=== PATIENT | male | born 1955 | race Caucasian/White ===

== ENCOUNTER 2019-04-22 09:59 | Inpatient (IN) ==
[2019-04-21 09:46] LABS: Basophils # (auto) 0.03 K/uL (0-0.2); Basophils % (auto) 0.4 %; Eosinophils # (auto) 0.08 K/uL (0-0.5); Hematocrit (blood only) 31.6 % (42-52); Immature Granulocytes # (auto) 0.02 K/uL (0.00-0.02); Immature Granulocytes % (auto) 0.3 %; Lymphocytes # (auto) 0.76 K/uL (1.2-3.4); Lymphocytes % (auto) 9.7 %; Mean Corpuscular Hemoglobin 26.2 pg (25-34); Mean Corpuscular Hgb Conc 31.6 g/dL (32-36); Mean Corpuscular Volume 82.7 fL (80-100); Mean Platelet Volume 9.4 fL (7.4-10.4); Monocytes # (auto) 0.66 K/uL (0.11-0.59); Monocytes % (auto) 8.4 %; Neutrophils # (auto) 6.31 K/uL (1.4-6.5); Neutrophils % (auto) 80.2 %; Platelet Count 226 K/uL (130-400); RDW Coefficient of Variation 15.7 % (11.5-14.5); RDW Standard Deviation 47.3 fL (36.4-46.3); Red Blood Count 3.82 M/uL (4.7-6.1); White Blood Count 7.86 K/uL (4.8-10.8)
--- NOTE | 2019-04-21 13:52 | Anesthesiology Consultation ---
Date of Service April 21, 2019 Assessment & Plan (1) Encounter for pre-operative examination: Chart Review Chart Review: Acceptable Risk for Surgery and Patient NOT seen in Pre Admission Testing Consults Requested none type and screen ordered. History Surgery Operation Date: 04/22/19 11:40 Proposed Procedures p Left Hand Assisted Laparoscopic Nephrectomy - Atif Arora MD Height/Weight Height: 5 ft 11 in Weight: 71.214 kg Allergies Allergy/AdvReac Type Severity Reaction Status Date / Time No Known Allergies Allergy Verified 04/21/19 08:09 Medications Home Medications Medication Instructions Recorded Confirmed Last Taken amlodipine 5 mg tablet 5 mg PO QAM 04/21/19 04/21/19 Unknown hydrochlorothiazide 12.5 mg capsule 12.5 mg PO QAM 04/21/19 04/21/19 Unknown metoprolol tartrate 50 mg tablet 50 mg PO BID 04/21/19 04/21/19 Unknown polysaccharide iron complex 150 mg PO QAM 04/21/19 04/21/19 Unknown [Ferrex 150] tamsulosin 0.4 mg capsule 0.4 mg PO QPM 04/21/19 04/21/19 Unknown Past Medical History Medical History BPH (benign prostatic hyperplasia) Cancer of kidney PLANNING SURGERY Hypertension Past Surgical History Surgical History Hx of right inguinal hernia repair Social History Smoking Status: Never smoker Do You Dip or Chew Tobacco: No Hx Alcohol Use: No Hx Substance Use: No substance use type: does not use Testing Laboratory Results 04/21/19 09:04 Blood Type AB Positive 04/21/19 09:04 Antibody Screen NEGATIVE 04/21/19 09:04 BMP 04/09/2019: Na 139, K 3.9, Cl 104, Bicarb 28, BUN 14.3, creat 1.05. Electrocardiogram Date: 04/21/19 Findings: + NSR @ (65) Normal ECG.
[~2019-04-22 09:59] MED LIST: CEFAZOLIN 2000MG 2,000 MG/15 ML SYR IV SCH; HEPARIN SOD 5,000 UNIT/0.5 ML VIAL SQ SCH; LR 15ML/HR IV SCH; SODIUM CHLORIDE 0.9% 250 ML IV PRN
[2019-04-22] MEDS ORDERED: MIDAZOLAM HCL 1 MG/ML 2ML VIAL ONE (10:02)
[2019-04-22] MEDS ORDERED: fentaNYL citrate 100 MCG/2 ML VIAL ONE ×2 (10:03→13:34)
--- NOTE | 2019-04-22 12:03 | History & Physical Bridge Note ---
Date of Service April 22, 2019 History & Physical Bridge Note I have examined the patient, reviewed the History & Physical and in the interval since the performance of the History & Physical I have noted the following changes of clinical significance: no changes noted
[2019-04-22] MEDS ORDERED: ALBUMIN HUMAN 5% 12.5 GM/250 ML VIAL IV ONE (12:22)
[2019-04-22] MEDS ORDERED: ACETAMINOPHEN 1000 MG/100 ML IV IV ONE (12:22)
[2019-04-22] MEDS ORDERED: GELATIN SPONGE SZ 100 ONE (12:34)
[2019-04-22] MEDS ORDERED: ePHEDrine sulfate 50 MG/ML AMP IV PRN (12:41)
[2019-04-22] MEDS ORDERED: ONDANSETRON INJ 2 MG/ML 2 ML VIAL IV PRN ×2 (12:41→17:11)
[2019-04-22] MEDS ORDERED: ATROPINE SULFATE 0.1 MG/ML 10ML SYR IV PRN (12:41)
[2019-04-22] MEDS ORDERED: BUPIVACAINE 0.5 % 5 MG/1 ML MPF 30ML VIAL ONE (12:58)
[2019-04-22] MEDS ORDERED: HYDROmorphone INJ 2 MG/ML SYR/VIAL ONE (13:22)
[2019-04-22] MEDS ORDERED: KETAMINE HCL INJ 50 MG/ML 10 ML VIAL ONE (13:35)
[2019-04-22] MEDS ORDERED: LIDOCAINE HCL 2% 2 ML VIAL/AMP(20MG/ML) INFIL ONE (13:41)
[2019-04-22] MEDS ORDERED: GLYCOPYRROLATE 0.2 MG/ML VIAL ONE ×2 (13:41→15:41)
[2019-04-22] MEDS ORDERED: PROPOFOL IV EMULSION 10 MG/ML 20 ML VIAL IV ONE (13:41)
[2019-04-22] MEDS ORDERED: ROCURONIUM BROMIDE 10 MG/ML 5 ML VIAL ONE ×2 (13:41→15:41)
[2019-04-22] MEDS ORDERED: NEOSTIGMINE METHYLSULFATE 5 MG/5 ML SYR ONE ×2 (13:41→15:41)
[2019-04-22] MEDS ORDERED: ONDANSETRON INJ 2 MG/ML 2 ML VIAL ONE (13:41)
[2019-04-22] MEDS ORDERED: DEXAMETHASONE SOD INJ 4 MG/ML VIAL ONE (13:41)
[2019-04-22] MEDS ORDERED: FLOSEAL HEMOSTATIC MATRIX 10ML TOP ONE (14:46)
[2019-04-22] MEDS: fentaNYL citrate 100 MCG/2 ML VIAL IV PRN ×2 (15:38→16:00)
--- NOTE | 2019-04-22 15:39 | Operative Report ---
Post Operative Report Pre & Post Diagnosis Operation Date: 04/22/19 11:40 Pre-Op Diagnosis: Left Renal Mass Post-Op Diagnosis: Left Renal Mass Procedure Operation Date: 04/22/19 11:40 Actual Procedures p Left Radical Nephrectomy(Left) - Atif Arora MD Surgeon Sergio Arora MD Home Insurance Agent Champ Morales MD; ZAIDA Collier Estimated Blood Loss 500 Findings Consistent with Post-Op Diagnosis Specimens left kidney Description of Procedure Patient was identified in the preoperative holding area, appropriate informed consents reviewed and completed and he was transported to the operating suite. Upon arrival he received appropriate preoperative antibiotics in the form of Ancef. Adequate general anesthesia was achieved and he was placed in supine position with the bed slightly flexed. Following sterile prep and drape a midline incision was made from the subxiphoid region down to approximately 4 cm below the umbilicus. We dissected down to the linea alba and divided it exposing underlying peritoneum. After making a sharp incision into the peritoneum, finger sweep was performed which led to easy palpation of the extremely large left renal mass, but no other adhesive disease. I will continue to open the peritoneum for the full length of the incision. At that time the tumor was immediately visible as it had shifted all other abdominal contents to the right hemiabdomen. The stomach was protruding from the upper portion of the incision and the colon was visible progressing from the hepatic flexure towards the tumor, however the area of the splenic flexure and the lateral aspect of the descending colon were not visible as they were behind the tumor. Working from the superior margin we traced the transverse colon to the splenic flexure and mobilized the splenic flexure mobilized the white line of Toldt to medialize the colon. Of note, the mesentery was extremely attenuated and thinned over the large mass. We attempted to gently dissect this off of the underlying mass however it was a very adhesive in certain locations. There were several small mesenteric rents made, but no large openings. After we mobilized the colon medially, we were able to visualize the true anterior surface of the tumor. Perform a dissecting the medial aspect, we dissected the lateral and inferior aspect of the kidney with a combination of blunt dissection and LigaSure. As we gradually moved to the medial aspect of the kidney, we identified the ureter, gonadal vessel and the distal aspect of Gerota's fascia. Of note, all of these were found essentially in the deep pelvis as the mass had pushed everything out of its normal orientation. We transected the lower cone of Gerota's utilizing a stapler to help facilitate further mobility of the mass as we dissected towards the hilum. Carefully working of the medial aspect of the kidney utilizing a right angle and Bovie electrocautery, we identified the junction of the gonadal vein and the renal vein. This was shifted across the midline we could palpate the aorta immediately behind the vein. Just superior/cephalad to the vein we encountered a single renal artery which was easily palpable. After creating a window superior to the vessels and skeletonizing all areas below the vessels, we passed a stapling device and control the artery and vein and a single staple load. A second staple load was passed along the medial cephalad portion of the kidney and the adrenal was kept with the kidney itself. After confirming good hemostasis from the hilar structures we turned our attention back to the posterior and lateral aspects of the kidney. These were dissected utilizing LigaSure device and blunt dissection. The superior aspect of the kidney were transected again utilizing LigaSure and a single staple load. At this time the entire kidney was mobilized. There was delivered through the incision and passed off the table. There was one small bleeding vessel from the posterior walla parasitic vessel, this was controlled with suture ligature. There is an incredible amount of space after removing this 20+ centimeter mass, we carefully inspected the colon to ensure viability. We then placed FloSeal coagulant against the renal fossa. We confirmed excellent hemostasis and then draped the colon back in the left lateral aspect of the abdome and omentum was draped over her entire surgical field. Closure of the fascia was conducted with a looped #1 PDS beginning at the xiphoid region and tying at the distal aspect of the incision. 3-0 Vicryl was used to reapproximate William's fascia and buried the stitch. Butler were used to close the skin. Incision was infiltrated with half percent Marcaine before closure. He was extubated and taken to the PACU in stable condition. Of note, he received 2 units of blood throughout the casewe estimated blood loss to be 500 cc however there is certainly significant amount of blood within the mass. There were no complications throughout the case. Dr. Champ Moralse assisted from incision to closure. Kisha Ruelas served as a second assist throughout the case. I attest to the content of the Intraoperative Record and any orders documented therein. Any exceptions are noted below.
[2019-04-22 15:56] LABS: Basophils # (auto) 0.02 K/uL (0-0.2); Basophils % (auto) 0.2 %; Eosinophils # (auto) 0.02 K/uL (0-0.5); Eosinophils % (auto) 0.2 %; Hematocrit (blood only) 29.7 % (42-52); Hemoglobin 9.7 g/dL (14.0-18.0); Immature Granulocytes # (auto) 0.02 K/uL (0.00-0.02); Immature Granulocytes % (auto) 0.2 %; Lymphocytes # (auto) 0.62 K/uL (1.2-3.4); Lymphocytes % (auto) 5.9 %; Mean Corpuscular Volume 82.7 fL (80-100); Mean Platelet Volume 9.1 fL (7.4-10.4); Monocytes # (auto) 0.29 K/uL (0.11-0.59); Monocytes % (auto) 2.7 %; Neutrophils % (auto) 90.8 %; Platelet Count 187 K/uL (130-400); RDW Coefficient of Variation 15.3 % (11.5-14.5); RDW Standard Deviation 46.5 fL (36.4-46.3); Red Blood Count 3.59 M/uL (4.7-6.1); White Blood Count 10.57 K/uL (4.8-10.8)
[2019-04-22 16:07] LABS: Mean Corpuscular Hgb Conc 32.7 g/dL (32-36)
[2019-04-22 16:12] LABS: BUN Creatinine Ratio 16.1 (10-20); Calcium 8.2 mg/dl (8.5-10.1); Creatinine Clr Calc Pharmacy 69.5 ml/min; Est GFR (African American) 84.5; Est GFR (Non-African American) 72.9; Potassium 3.8 mmol/L (3.5-5.1)
[2019-04-22] MEDS: MoRPHine SULFATE 10 MG/ML CARP/VIAL IV PRN ×3 (16:17→16:29)
[2019-04-22] MEDS: HYDROmorphone HCL 0.5MG/ML 50 ML CASSETTE IV PRN ×4 (16:20→22:52)
--- NOTE | 2019-04-22 16:41 | Anesthesiology Progress Note ---
Date of Service April 22, 2019 Anesthesia Post Procedure Vital Signs Vital Signs: Temp Pulse Pulse Resp BP BP Pulse Ox 04/22/19 16:30 77 13 142/66 H 98 04/22/19 16:20 81 13 151/73 H 98 04/22/19 16:10 77 12 155/76 H 98 04/22/19 16:00 81 13 162/75 H 99 04/22/19 15:50 78 12 162/79 H 98 04/22/19 15:40 79 12 165/79 H 100 04/22/19 15:30 82 14 162/82 H 100 04/22/19 15:21 36.6 C 85 19 140/67 99 04/22/19 10:34 36.6 C 77 20 159/90 H 99 Pain Intensity Abdomen: Pain Intensity: 6 Transfer of Care Handoff Completed per policy Notes Mental Status: alert / awake / arousable and participated in evaluation Patient Amnestic to Procedure: Yes Nausea / Vomiting: adequately controlled Pain: adequately controlled Airway Patency, RR, SpO2: stable & adequate BP & HR: stable & adequate Hydration State: stable & adequate Anesthetic Complications: no major complications apparent and Pt Satisfied with anesthetic care
[2019-04-22] MEDS ORDERED: ACETAMINOPHEN 325 MG TAB PO PRN (17:11)
[2019-04-22] MEDS ORDERED: NALOXONE HCL 0.4 MG/1 ML VIAL/CARP IV PRN (17:11)
[2019-04-22] MEDS ORDERED: HYDROmorphone HCL 0.5MG/ML 50 ML CASSETTE IV PRN (17:11)
[2019-04-22] MEDS ORDERED: HYDROCODONE/ACETAMOPHEN 5/325MG TAB PO PRN ×2 (17:11)
[2019-04-22] MEDS ORDERED: SODIUM CHLORIDE 0.9% 1000ML 1,000 ML IV SCH (17:11)
[2019-04-22] MEDS ORDERED: Nursing to Pharmacy Communication ONE (20:17)
[2019-04-22] MEDS: TAMSULOSIN HCL 0.4 MG CAP PO SCH (20:49)
[2019-04-22] MEDS: CEFAZOLIN 2000MG 2,000 MG/15 ML SYR IV SCH (20:53)
[2019-04-23] MEDS: CEFAZOLIN 2000MG 2,000 MG/15 ML SYR IV SCH (05:27)
[2019-04-23 07:33] LABS: Basophils # (auto) 0.01 K/uL (0-0.2); Basophils % (auto) 0.1 %; Eosinophils # (auto) 0.01 K/uL (0-0.5); Eosinophils % (auto) 0.1 %; Hematocrit (blood only) 26.4 % (42-52); Hemoglobin 8.5 g/dL (14.0-18.0); Immature Granulocytes # (auto) 0.01 K/uL (0.00-0.02); Immature Granulocytes % (auto) 0.1 %; Lymphocytes % (auto) 7.9 %; Mean Corpuscular Hemoglobin 26.6 pg (25-34); Mean Corpuscular Hgb Conc 32.2 g/dL (32-36); Mean Corpuscular Volume 82.8 fL (80-100); Mean Platelet Volume 9.2 fL (7.4-10.4); Monocytes # (auto) 0.52 K/uL (0.11-0.59); Monocytes % (auto) 6.8 %; Neutrophils # (auto) 6.45 K/uL (1.4-6.5); Platelet Count 218 K/uL (130-400); RDW Coefficient of Variation 15.5 % (11.5-14.5); RDW Standard Deviation 46.9 fL (36.4-46.3); Red Blood Count 3.19 M/uL (4.7-6.1)
[2019-04-23] MEDS: LACTATED RINGER'S 1,000 ML IV SCH ×6 (07:55→23:55)
--- NOTE | 2019-04-23 08:03 | Urology Progress Note ---
Date of Service April 23, 2019 Assessment & Plan (1) Renal neoplasm: pod #1 s/p L rad nephrectomy for massive tumor - circus hand now - he is uncertain how effective this is - may want to switch to PRN meds later today - oral and IV - OOB today - clear liquids - remove humphrey this AM Subjective overall, did well last night some pain control issues slightly dizzy when standing not particularly hungry Physical Exam Physical Exam: incision dressed - c/d/i NAD aaox3 no lower extremity edema Results & Data Vital Signs (Past 12 Hours) Vital Signs Temp Pulse Resp BP Pulse Ox 04/23/19 06:51 36.7 C 77 18 143/77 H 97 04/23/19 04:05 36.6 C 79 16 136/72 94 04/23/19 00:00 36.6 C 76 16 134/74 96 04/22/19 20:10 36.5 C 76 16 141/76 H 98 PG Care Time/CCT Total # of Minutes Spent Total Time Spent with Patient: Total time spent is greater than 50% in coordination of care (as documented) at patient's floor/unit and/or counseling patient:
[2019-04-23 08:12] LABS: BUN Creatinine Ratio 14.3 (10-20); Calcium 8.5 mg/dl (8.5-10.1); Creatinine Clr Calc Pharmacy 62.1 ml/min; Est GFR (African American) 73.7; Est GFR (Non-African American) 63.6; Potassium 4.5 mmol/L (3.5-5.1)
[2019-04-23] MEDS: IRON POLYSACCHARIDE COMPLEX 150 MG CAPSULE PO SCH (08:39)
[2019-04-23] MEDS: HEPARIN SOD 5,000 UNIT/0.5 ML VIAL SQ SCH ×2 (08:40→21:37)
--- NOTE | 2019-04-23 10:46 | Anesthesiology Progress Note ---
Date of Service April 23, 2019 Anesthesia Post Procedure Vital Signs Vital Signs: Temp Pulse Pulse Resp BP Pulse Ox 04/23/19 06:51 36.7 C 77 18 143/77 H 97 04/23/19 04:05 36.6 C 79 16 136/72 94 04/23/19 00:00 36.6 C 76 16 134/74 96 04/22/19 20:10 36.5 C 76 16 141/76 H 98 04/22/19 19:05 36.4 C L 82 18 132/73 98 04/22/19 18:32 36.4 C L 77 18 132/69 99 04/22/19 17:10 36.9 C 92 H 16 135/70 98 04/22/19 16:50 80 14 134/66 98 04/22/19 16:40 37.4 C 82 20 147/71 H 98 04/22/19 16:30 77 13 142/66 H 98 04/22/19 16:20 81 13 151/73 H 98 04/22/19 16:10 77 12 155/76 H 98 04/22/19 16:00 81 13 162/75 H 99 04/22/19 15:50 78 12 162/79 H 98 04/22/19 15:40 79 12 165/79 H 100 04/22/19 15:30 82 14 162/82 H 100 04/22/19 15:21 36.6 C 85 19 140/67 99 Pain Intensity Abdomen: Pain Intensity: 2 Notes Mental Status: alert / awake / arousable and participated in evaluation Patient Amnestic to Procedure: Yes Nausea / Vomiting: see Notes below Pain: adequately controlled Airway Patency, RR, SpO2: stable & adequate BP & HR: stable & adequate Hydration State: stable & adequate Anesthetic Complications: no major complications apparent and Pt Satisfied with anesthetic care
[2019-04-23] MEDS ORDERED: OXYCODONE HCL IR 5 MG TAB (IMMEDIATE RELEASE) PO PRN (12:21)
[2019-04-23] MEDS ORDERED: MoRPHine SULFATE 4 MG/ML 1 ML CARP\\VIAL IV PRN (12:21)
[2019-04-23] MEDS ORDERED: ACETAMINOPHEN 1,000 MG/100 ML VIAL IV PRN (12:21)
[2019-04-23] MEDS: OXYCODONE HCL IR 5 MG TAB (IMMEDIATE RELEASE) PO PRN ×2 (14:10→19:44)
[2019-04-23] MEDS ORDERED: METOPROLOL TARTRATE 50 MG TAB PO STA (18:33)
[2019-04-23] MEDS: TAMSULOSIN HCL 0.4 MG CAP PO SCH (20:03)
[2019-04-24] MEDS: OXYCODONE HCL IR 5 MG TAB (IMMEDIATE RELEASE) PO PRN ×4 (02:34→20:55)
[2019-04-24] MEDS: LACTATED RINGER'S 1,000 ML IV SCH ×3 (07:45→23:33)
[2019-04-24] MEDS: METOPROLOL TARTRATE 50 MG TAB PO SCH ×2 (07:46→20:55)
[2019-04-24] MEDS: HEPARIN SOD 5,000 UNIT/0.5 ML VIAL SQ SCH ×2 (07:47→20:57)
[2019-04-24] MEDS: IRON POLYSACCHARIDE COMPLEX 150 MG CAPSULE PO SCH ×2 (07:48→07:57)
--- NOTE | 2019-04-24 08:00 | Urology Progress Note ---
Date of Service April 24, 2019 Assessment & Plan (1) Renal neoplasm: POD #2 s/p open nephrectomy - cont pain meds cont ambulation colace labs pending Subjective progressing appropriately voiding pain ok out of bed No BM yet - but feels movement Physical Exam Physical Exam: NAD AAox3 no resp distress incision appropriate - dressing removed Results & Data Vital Signs (Past 12 Hours) Vital Signs Temp Pulse Pulse Resp BP BP Pulse Ox 04/24/19 07:16 37 C 72 12 152/86 H 97 04/23/19 23:10 37 C 79 16 169/80 H 94 04/23/19 21:32 75 166/79 H 163/80 H 04/23/19 20:44 73 154/84 H 96 04/23/19 20:31 80 20 161/84 H 95 PG Care Time/CCT Total # of Minutes Spent Total Time Spent with Patient: Total time spent is greater than 50% in coordination of care (as documented) at patient's floor/unit and/or counseling patient:
[2019-04-24 08:18] LABS: Basophils # (auto) 0.01 K/uL (0-0.2); Basophils % (auto) 0.1 %; Eosinophils # (auto) 0.02 K/uL (0-0.5); Eosinophils % (auto) 0.2 %; Hematocrit (blood only) 28.4 % (42-52); Hemoglobin 9.4 g/dL (14.0-18.0); Immature Granulocytes # (auto) 0.01 K/uL (0.00-0.02); Immature Granulocytes % (auto) 0.1 %; Lymphocytes # (auto) 0.47 K/uL (1.2-3.4); Lymphocytes % (auto) 5.2 %; Mean Corpuscular Hemoglobin 27.1 pg (25-34); Mean Corpuscular Hgb Conc 33.1 g/dL (32-36); Mean Corpuscular Volume 81.8 fL (80-100); Mean Platelet Volume 8.6 fL (7.4-10.4); Monocytes # (auto) 0.59 K/uL (0.11-0.59); Monocytes % (auto) 6.6 %; Neutrophils # (auto) 7.88 K/uL (1.4-6.5); Neutrophils % (auto) 87.8 %; Platelet Count 242 K/uL (130-400); RDW Coefficient of Variation 15.6 % (11.5-14.5); RDW Standard Deviation 46.3 fL (36.4-46.3); Red Blood Count 3.47 M/uL (4.7-6.1); White Blood Count 8.98 K/uL (4.8-10.8)
[2019-04-24 08:52] LABS: BUN Creatinine Ratio 9.8 (10-20); Calcium 8.8 mg/dl (8.5-10.1); Creatinine Clr Calc Pharmacy 66.5 ml/min; Potassium 3.8 mmol/L (3.5-5.1)
[2019-04-24] MEDS: DOCUSATE SODIUM 100 MG CAP PO SCH ×2 (08:59→20:55)
[2019-04-24] MEDS: TAMSULOSIN HCL 0.4 MG CAP PO SCH (20:55)
[2019-04-25] MEDS: METOPROLOL TARTRATE 50 MG TAB PO SCH ×2 (07:38→20:31)
[2019-04-25] MEDS: HEPARIN SOD 5,000 UNIT/0.5 ML VIAL SQ SCH ×2 (07:38→20:33)
[2019-04-25] MEDS: DOCUSATE SODIUM 100 MG CAP PO SCH ×2 (07:38→20:31)
[2019-04-25] MEDS: OXYCODONE HCL IR 5 MG TAB (IMMEDIATE RELEASE) PO PRN ×2 (07:39→23:47)
[2019-04-25] MEDS: IRON POLYSACCHARIDE COMPLEX 150 MG CAPSULE PO SCH (07:39)
[2019-04-25] MEDS: LACTATED RINGER'S 1,000 ML IV SCH (07:39)
[2019-04-25 07:58] LABS: Basophils # (auto) 0.01 K/uL (0-0.2); Basophils % (auto) 0.2 %; Eosinophils # (auto) 0.09 K/uL (0-0.5); Eosinophils % (auto) 1.6 %; Hematocrit (blood only) 25.7 % (42-52); Hemoglobin 8.6 g/dL (14.0-18.0); Immature Granulocytes # (auto) 0.02 K/uL (0.00-0.02); Immature Granulocytes % (auto) 0.4 %; Lymphocytes # (auto) 0.48 K/uL (1.2-3.4); Lymphocytes % (auto) 8.4 %; Mean Corpuscular Hemoglobin 27.1 pg (25-34); Mean Corpuscular Hgb Conc 33.5 g/dL (32-36); Mean Corpuscular Volume 81.1 fL (80-100); Mean Platelet Volume 8.2 fL (7.4-10.4); Monocytes # (auto) 0.45 K/uL (0.11-0.59); Monocytes % (auto) 7.9 %; Neutrophils # (auto) 4.66 K/uL (1.4-6.5); Neutrophils % (auto) 81.5 %; Platelet Count 224 K/uL (130-400); RDW Coefficient of Variation 15.4 % (11.5-14.5); RDW Standard Deviation 45.9 fL (36.4-46.3); Red Blood Count 3.17 M/uL (4.7-6.1); White Blood Count 5.71 K/uL (4.8-10.8)
[2019-04-25 08:40] LABS: BUN Creatinine Ratio 9.2 (10-20); Calcium 9.1 mg/dl (8.5-10.1); Est GFR (African American) 92.6; Est GFR (Non-African American) 79.9; Potassium 3.9 mmol/L (3.5-5.1)
--- NOTE | 2019-04-25 12:14 | Urology Progress Note ---
Date of Service April 25, 2019 Assessment & Plan (1) Renal neoplasm: POD#3 s/p open nephrectomy - recovery on pace - doing very well HL IVF cont amb and diet PO pain meds sufficient presuming appropriate progression overnight - home tomorrow Subjective passing flatus, liquid BMs overnight Continues to progress appropriately after his open radical nx Ambulating Pain improving Tolerating diet Beginning to get anxious to go home Physical Exam Physical Exam: incision appropriate minimal tenderness minimal abdominal distention Results & Data Vital Signs (Past 12 Hours) Vital Signs Temp Pulse Pulse Resp BP BP Pulse Ox 04/25/19 09:16 70 138/80 04/25/19 07:31 36.5 C 70 15 169/83 H 97 04/25/19 03:50 171/86 H PG Care Time/CCT Total # of Minutes Spent Total Time Spent with Patient: Total time spent is greater than 50% in coordination of care (as documented) at patient's floor/unit and/or counseling patient:
[2019-04-25] MEDS: TAMSULOSIN HCL 0.4 MG CAP PO SCH (20:31)
[2019-04-26] MEDS: OXYCODONE HCL IR 5 MG TAB (IMMEDIATE RELEASE) PO PRN ×2 (06:02→11:35)
[2019-04-26 06:10] LABS: Hematocrit (blood only) 27.7 % (42-52); Hemoglobin 8.9 g/dL (14.0-18.0); Mean Corpuscular Hemoglobin 26.6 pg (25-34); Mean Corpuscular Hgb Conc 32.1 g/dL (32-36); Mean Corpuscular Volume 82.7 fL (80-100); Mean Platelet Volume 8.7 fL (7.4-10.4); Platelet Count 288 K/uL (130-400); RDW Coefficient of Variation 15.9 % (11.5-14.5); Red Blood Count 3.35 M/uL (4.7-6.1); White Blood Count 5.74 K/uL (4.8-10.8)
[2019-04-26] MEDS: DOCUSATE SODIUM 100 MG CAP PO SCH (07:36)
[2019-04-26] MEDS: HEPARIN SOD 5,000 UNIT/0.5 ML VIAL SQ SCH (07:37)
[2019-04-26] MEDS: METOPROLOL TARTRATE 50 MG TAB PO SCH (07:37)
[2019-04-26] MEDS: IRON POLYSACCHARIDE COMPLEX 150 MG CAPSULE PO SCH (07:38)
--- NOTE | 2019-04-26 09:57 | Urology Progress Note ---
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 Doing quite well. Patient expects his LE swelling will improve with increased activity at home. I concur. I suspect removal of the mass has also created some circulatory changes in the LEs due to mass effect. Possible f/u and therapies reviewed. Will d/w Dr. Arora further as outpatient. Limitations reviewed, Rx for Colace and Percocet provided, stable for DC home today. Subjective 63 yo male, POD#4 s/p open nephrectomy, healing well. He notes he is ambulating independently in hallways, pain controlled on oral meds, taking a regular diet. + BM, no emesis. Pathology report has returned - chromophobe RCC. Images from OR and path reviewed with patient. He is in good spirits, c/o penile pain and LE swelling. Hb stable, Cr 1. Review of Systems Constitutional: no fever and no chills Eyes: no diplopia Ear, Nose, Mouth, Throat: no ear trauma Respiratory: no hemoptysis Cardiovascular: no chest pain Gastrointestinal: + abdominal pain; no nausea and no vomiting Integumentary: no acne and no boil Neurologic: no paralysis Psychiatric: no hopelessness Allergy / Immunological: no tongue swelling Physical Exam Constitutional: well developed and well nourished; no acute distress Eyes: eyes not dysmorphic ENMT: Ears: no external ear abnormality Neck: trachea midline; no anterior neck swelling Respiratory: no respiratory distress and does not use accessory muscles Cardiovascular: Vessels: radial pulses present Gastrointestinal (Abdomen): Inspection/Auscultation: abdomen not distended Percussion/Palpation: abdomen soft; abdomen nontender inc c/d/i with stiven Musculoskeletal: Head/Neck/Chest: normocephalic and neck supple Skin: normal turgor Neurologic: awake; not obtunded Psychiatric: Orientation: oriented x 3 Lymphatic: no lymphadenopathy Results & Data Vital Signs (Past 12 Hours) Vital Signs Temp Pulse Pulse Resp BP BP Pulse Ox 04/26/19 07:41 36.6 C 71 16 157/85 H 98 04/25/19 23:45 36.7 C 63 18 155/87 H 97 PG Care Time/CCT Total # of Minutes Spent Total Time Spent with Patient: Total time spent is greater than 50% in coordination of care (as documented) at patient's floor/unit and/or counseling patient:
--- NOTE | 2019-05-03 08:51 | Discharge Summary ---
Date of Service May 03, 2019 Admission HPI Per Admitting Provider Patient with massive left renal tumor presents for left radical nephrectomy Admission Exam Per Admitting Provider Renal cell carcinoma Principal Diagnosis Chromophobe renal cell carcinoma Discharge Data Allergies Allergy/AdvReac Type Severity Reaction Status Date / Time No Known Allergies Allergy Verified 04/22/19 10:31 Procedures Performed Operation Date: 04/22/19 11:40 Actual Procedures p Left Radical Nephrectomy(Left) - Atif Arora MD Hospital Course (1) Chromophobe renal cell carcinoma: Patient admitted for an open left radical nephrectomy, details of the procedure as dictated previously in the operative report. In summary, he tolerated the procedure extremely well. He was transferred to the floor in stable condition and was maintained on a Dilaudid PRO SHOP ATTENDANT overnight. He was out of bed with some discomfort. He progressed on postoperative day 1 and was ambulatory. He was able to be tapered off of the PRO SHOP ATTENDANT to PRN pain medications. Gradually transition him to oral pain medications and advanced his diet over the next 48 hours. His labs remained stable, his pain was improved sufficiently for discharge home on postoperative day 4. He was in stable condition at the time of discharge. Total Time Total Time Spent Total Time Spent (In Minutes): 30 Total Time Includes: Examination of the Patient, Discharge Planning and Medication Reconciliation Discharge Plan Discharge Items Patient Disposition: Home - Self-Care Reason For Visit: Left Renal Mass Discharge Diagnosis: Left renal cell CA, chromophobe s/p open nephrectomy. Condition on Discharge: Good Activity: As commented below Lifting: Gradually increase as tolerated and No more than 25 pounds Bathing: Keep incision dry Bathing Comment: OK to shower Sexual Activity: Wait until after follow-up appointment Exercise/Sports: Wait until after follow-up appointment Driving/Machine Use: Resume 3 days after discharge Non-emergency contact: Urologist Call non-emergency contact if: you have any medication questions, your symptoms worsen, your pain is not controlled, your pain is worsening, your pain is unusual for you, your pain is concerning for you, your temperature is above 101, your wound has increased redness, your wound has increased drainage and your wound pain has increased Follow-up/Referrals: Robert Perez DO [Primary Care Provider] - Diet: Regular Addtl Attending Provider Instructions: Pending Studies at Discharge: Yes Studies:: Copy of pathology can be provided in office Stand-Alone Forms: My [facility] Medications and DC Order Prescriptions: New oxycodone-acetaminophen 7.5-325 mg tablet 1 tab PO Q6H PRN (Reason: pain) Qty: 20 RF: 0 docusate sodium [Colace] 100 mg capsule 100 mg PO BID Qty: 30 RF: 0 Continued metoprolol tartrate 50 mg tablet 50 mg PO BID RF: 0 amlodipine 5 mg tablet 5 mg PO QAM RF: 0 hydrochlorothiazide 12.5 mg capsule 12.5 mg PO QAM RF: 0 tamsulosin 0.4 mg capsule 0.4 mg PO QPM RF: 0 polysaccharide iron complex [Ferrex 150] 150 mg iron Capsule 150 mg PO QAM RF: 0 Discharge Orders: Discharge Order (Routine); Ordered 04/26/19 Ordered By: Champ Morales Admission Data Admit Date/Time: 04/22/19 15:18 Attending Provider: Atif Arora Admit Provider: Atif Arora Primary Care Provider: Robert Preez Other Interventions: Discharge Summary Assessment (RN) Last Done: 04/26/19 10:12 DC Date/Time DO NOT enter until pt leaves facility: 04/26/19 15:04
== END 2019-04-26 15:04 | disposition home or self-care (01) | DRG 658 ==
LOC: ASU 09:59 → 3W 15:18
DX: C64.2 Malignant neoplasm of left kidney, except renal pelvis

== ENCOUNTER 2019-07-02 09:15 | Inpatient (IN) ==
[2019-07-02] MEDS ORDERED: SODIUM CHLORIDE 0.9% 1000ML 1,000 ML IV SCH (09:45)
[2019-07-02] MEDS ORDERED: ONDANSETRON INJ 2 MG/ML 2 ML VIAL IV STA (09:45)
[2019-07-02] MEDS ORDERED: HYDROmorphone INJ 0.5 MG/0.5 ML SYR IV STA (09:45)
[2019-07-02 09:46] LABS: Basophils # (auto) 0.03 K/uL (0-0.2); Basophils % (auto) 0.2 %; Eosinophils # (auto) 0.12 K/uL (0-0.5); Eosinophils % (auto) 0.8 %; Hematocrit (blood only) 25.7 % (42-52); Hemoglobin 8.5 g/dL (14.0-18.0); Immature Granulocytes # (auto) 0.06 K/uL (0.00-0.02); Immature Granulocytes % (auto) 0.4 %; Lymphocytes # (auto) 0.64 K/uL (1.2-3.4); Lymphocytes % (auto) 4.2 %; Mean Corpuscular Hgb Conc 33.1 g/dL (32-36); Mean Corpuscular Volume 81.6 fL (80-100); Mean Platelet Volume 9.3 fL (7.4-10.4); Monocytes # (auto) 1.44 K/uL (0.11-0.59); Monocytes % (auto) 9.4 %; Neutrophils # (auto) 12.99 K/uL (1.4-6.5); Platelet Count 232 K/uL (130-400); RDW Coefficient of Variation 16.5 % (11.5-14.5); RDW Standard Deviation 49.2 fL (36.4-46.3); Red Blood Count 3.15 M/uL (4.7-6.1); White Blood Count 15.28 K/uL (4.8-10.8)
[2019-07-02] MEDS ORDERED: LORazepam 0.5 MG/1 ML VIAL IV STA (10:00)
[2019-07-02 10:02] LABS: BUN Creatinine Ratio 13.5 (10-20); Calcium 9.2 mg/dl (8.5-10.1); Creatinine Clr Calc Pharmacy 41.3 ml/min; Est GFR (African American) 43.1; Est GFR (Non-African American) 37.2; Potassium 4.1 mmol/L (3.5-5.1)
[2019-07-02 10:05] LABS: Albumin Globulin Ratio 0.7 (0.9-2); Bilirubin,Total 0.8 mg/dl (0.2-1); Globulin 4.3 gm/dl (2.5-4.0); Total Protein 7.3 gm/dl (6.4-8.2)
--- NOTE | 2019-07-02 11:44 | History & Physical Report ---
Date of Service July 02, 2019 Assessment & Plan (1) Metastatic renal cell carcinoma: Ad[facility] patient [facility] Vital signs every 4 hours Placed consult hematology oncology Dr. Conway Placed consult for urology Dr. Arora Gentle IV fluid hydration with normal saline 100 cc/h Pain management for back pain and stomach pain. Antinausea management DVT prophylaxis Lovenox 40 mg subcu daily For leukocytosis of 15,000, trend down. Start the ceftriaxone empirically. Would consider stopping ceftriaxone if no source of infection found and could be slowly reactive to the metastatic disease. Would consider referring patient to palliative care after hematology oncology reevaluation. Patient is a full code Present on Admission?: Yes (2) History of left radical nephrectomy: Patient had chromophobe renal cell carcinoma removed in April 2019. Patient now has metastatic disease most probably RC carcinoma. Follow-up with hematology oncology and neurology. Present on Admission?: Yes (3) Leukocytosis: As already discussed. Present on Admission?: Yes (4) Benign prostatic hyperplasia: Continue tamsulosin. PSA 2.09 normal (5) Hypertension: Continue home medicine, metoprolol tartrate 50 mg p.o. twice daily and amlodipine 5 mg p.o. every morning. Blood pressure stable now. Continue monitoring. Present on Admission?: Yes History of Present Illness Chief Complaint: Back pain Primary Care Provider: ZAIDA Chaudhari Patient is a 63 years old male with past medical history of chromophobe renal cell carcinoma s/p left renal mass removal on April 22, [address] Arora urologist. Patient also see Dr. Conway pesticide chemist oncologist. Went to see his primary care physician for surveillance CT of the abdomen and pelvis yesterday and CT showed interval left nephrectomy with evidence of tumor recurrence. Multiple bilateral pulmonary nodules indicative of metastatic disease. 12 cm mass within the left nephrectomy bed with the left psoas invasion consistent with tumor recurrence. Multiple peritoneal and extraperitoneal masses consistent with metastatic disease the largest is a 20 cm mass with the anterior abdomen. Left para-aortic lymphadenopathy. Patient kim es fever, chills, chest pain, shortness of breath, abdominal pain, frequency, urgency. Patient complains of lower back pain. Are reviewed which shows elevated white blood cell count of 15.28, hemoglobin of 8.5, hematocrit of 25.7, platelets of 232, sodium 137, potassium 4.1, chloride 100, BUN 26, creatinine 1.9, GFR 37.2, AST 41, ALT 36, prostate-specific antigen 2.09, lipase 108. And is cloudy with trace blood. Decision was made to admit patient for metastatic renal cell carcinoma to [facility] and further management and treatment as necessary. Allergies Allergy/AdvReac Type Severity Reaction Status Date / Time No Known Allergies Allergy Verified 07/02/19 10:57 Home Medications Home Medications Medication Instructions Recorded Confirmed Type amlodipine 5 mg tablet 5 mg PO QAM #30 tab 05/15/19 07/02/19 Rx metoprolol tartrate 50 mg tablet 50 mg PO BID #60 tab 05/15/19 07/02/19 Rx tamsulosin 0.4 mg capsule 0.4 mg PO QPM #30 cap 05/15/19 07/02/19 Rx dutasteride 0.5 mg capsule 0.5 mg PO DAILY #90 cap 06/16/19 07/02/19 Rx Past Med/Surg History Medical History BPH (benign prostatic hyperplasia) Cancer of kidney PLANNING SURGERY Chromophobe renal cell carcinoma (Chronic) Hypertension Hypertension (Chronic) Renal neoplasm (Chronic) S/p nephrectomy Surgical History History of left radical nephrectomy 04/22/2019 Hx of right inguinal hernia repair x2 Social History Preferred Language: Bulgarian Communication Ability: Effective Bend Up Required: No Beliefs That Will Affect Care: None Current Living Situation: Significant Other current occupational status: employed current occupation: [employer] Feels Safe at Home: Yes Smoking Status: Never smoker Second Hand Exposure: No ; Hx Alcohol Use: No Hx Substance Use: No Seatbelt Use: never Review of Systems Review of Systems: All systems reviewed & are unremarkable except as noted in HPI & below Physical Exam Constitutional: WD/WN, vitals as above well developed Eyes: PERRL, conjunctivae normal, anicteric sclerae ENMT: external ear and nose normal, oropharynx normal Neck: trachea midline, no thyromegaly Respiratory: normal respiratory effort, lungs clear to auscultation Cardiovascular: RRR, no murmur, no edema Gastrointestinal (Abdomen): normal bowel sounds, soft, nontender, no hepatosplenomegaly Musculoskeletal: no cyanosis or clubbing, extremities motor strength 5/5 Skin: no rashes, warm and dry Neurologic: patellar DTR's 2+ bilat, sensation intact Psychiatric: A+Ox3, euthymic affect Genitourinary: Left flank scar. No suprapubic tenderness. Lymphatic: no cervical or axillary lymphadenopathy Results & Data Vital Signs (Past 12 Hours) Vital Signs Temp Pulse Pulse Resp BP BP Pulse Ox 07/02/19 10:22 90 18 128/72 93 07/02/19 09:56 94 07/02/19 09:18 36.6 C 100 H 20 103/65 100 Code Status & VTE Plan Code Status Full code VTE Prophylaxis Plan VTE Prophylaxis will be ordered: Yes PG Care Time/CCT Total # of Minutes Spent Total Time Spent with Patient: Total time spent is greater than 50% in coordination of care (as documented) at patient's floor/unit and/or counseling patient:
[2019-07-02] MEDS ORDERED: ACETAMINOPHEN 325 MG TAB PO PRN (13:12)
[2019-07-02] MEDS ORDERED: ALUMINUM/MAGNESIUM SUSP 30 ML UDC PO PRN (13:12)
[2019-07-02] MEDS ORDERED: PROMETHAZINE HCL 25 MG in SODIUM CHLORIDE 0.9% 50 ML IV PRN (13:12)
[2019-07-02] MEDS ORDERED: MoRPHine SULFATE 2 MG/ML CARP IV PRN (13:12)
[2019-07-02] MEDS ORDERED: ONDANSETRON INJ 2 MG/ML 2 ML VIAL IV PRN (13:12)
[2019-07-02] MEDS ORDERED: MAGNESIUM HYDROXIDE SUSP 30 ML UDC PO PRN (13:12)
[2019-07-02] MEDS ORDERED: POLYETHYLENE (MIRALAX) 17 GM PACK PO PRN (13:12)
[2019-07-02] MEDS ORDERED: OXYCODONE/ACETAMINOPHEN 5mg/325mg TAB PO PRN (13:12)
[2019-07-02] MEDS ORDERED: ZOLPIDEM TARTRATE 5 MG TAB PO PRN (13:12)
[2019-07-02] MEDS ORDERED: Nursing to Pharmacy Communication ONE (13:13)
[2019-07-02] MEDS ORDERED: HYDROmorphone INJ 1 MG/ML SYRINGE ONE (13:18)
[2019-07-02] MEDS ORDERED: cefTRIAXone SODIUM 1,000 MG/50 ML BAG IV SCH (13:30)
[2019-07-02] MEDS ORDERED: ENOXAPARIN INJ 40 MG/0.4 ML SYR SQ SCH (14:00)
[2019-07-02] MEDS: DOCUSATE SODIUM/SENNA 50/8.6MG TAB PO SCH (14:32)
[2019-07-02] MEDS: SODIUM CHLORIDE 0.9% 1000ML 1,000 ML IV SCH (14:33)
[2019-07-02] MEDS: DUTASTERIDE ~ ORDER AWAITING ACTION SCH (15:21)
[2019-07-02] MEDS: HYDROmorphone INJ 1 MG/ML SYRINGE IV PRN ×2 (15:41→20:11)
--- NOTE | 2019-07-02 17:03 | Oncology Consultation ---
Date of Consultation July 02, 2019 Assessment & Plan (1) Recurrent renal cell carcinoma of kidney: Mr. Sterling's scans are very worrisome for a recurrence of his cancer. This would be a surprising and devastating turn of events, as he had no clear evidence of disease just 2 months ago. We will need to confirm his diagnosis with a biopsy. We should also continue to work on his pain control. I spoke with radiology and pathology and we should be able to obtain a biopsy on Sunday. From there, if his pain is under control and he is otherwise stable, he could go home and follow up with me in the office. Present on Admission?: Yes History of Present Illness Reason for Consultation: Likely recurrent, metastatic renal cell carcinoma Attending Physician: Jeanne Lane MD History of Present Illness Mr. Sterling is a 63 year old man with a history of HTN and BPH. He had a CT of his chest on 04/09/19 to evaluate a chronic, dry cough that had been ongoing for about a year. The CT revealed no acute thoracic changes but did partially visualize a large mass in his left upper abdomen. Subsequent CT of his abdomen and pelvis revealed a very large mass arising near the site of his left kidney and occupying much of the volume of his abdomen. On 04/22/19, he underwent a left radical nephrectomy. 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 The tumor was contained entirely within the kidney and all the margins were negative. He did well post-operatively, but developed worsening abdominal pain starting a few weeks post-op. He also noticed some increasing fullness in his abdomen. He saw his PCP, Dr. Hand on 06/30, who recommended a CT of his abdomen that was done 07/01. It revealed evidence of multiple abdominal masses highly suspicious for malignancy. He also had a chest CT that revealed some lung masses. He was admitted for pain control and for a diagnostic workup. He was lying comfortably in bed when I saw him. His pain was improved with pain medication. He was anxious and tearful but calm. He felt bloated but denied any nausea or vomiting. He also denied any abnormal bleeding or bruising. Allergies Allergy/AdvReac Type Severity Reaction Status Date / Time No Known Allergies Allergy Verified 07/02/19 10:57 Home Medications Home Medications Medication Instructions Recorded Confirmed Type amlodipine 5 mg tablet 5 mg PO QAM #30 tab 05/15/19 07/02/19 Rx metoprolol tartrate 50 mg tablet 50 mg PO BID #60 tab 05/15/19 07/02/19 Rx tamsulosin 0.4 mg capsule 0.4 mg PO QPM #30 cap 05/15/19 07/02/19 Rx dutasteride 0.5 mg capsule 0.5 mg PO DAILY #90 cap 06/16/19 07/02/19 Rx Patient History Medical History BPH (benign prostatic hyperplasia) Cancer of kidney PLANNING SURGERY Chromophobe renal cell carcinoma (Chronic) Hypertension Hypertension (Chronic) Renal neoplasm (Chronic) S/p nephrectomy Surgical History History of left radical nephrectomy 04/22/2019 Hx of right inguinal hernia repair x2 Social History Preferred Language: Hebrew Communication Ability: Effective 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 Beliefs That Will Affect Care: None Current Living Situation: Significant Other current occupational status: employed current occupation: [employer] Other Information That Helps Us Care for You: No Feels Safe at Home: Yes Safety Concerns: Feels Safe At This Time Smoking Status: Never smoker Second Hand Exposure: No ; Hx Alcohol Use: No Hx Substance Use: No Seatbelt Use: never Review of Systems Review of Systems: All systems reviewed & are unremarkable except as noted in HPI & below Physical Exam Constitutional: comfortable; no acute distress Eyes: + anicteric sclerae ENMT: external ear and nose normal, oropharynx normal Respiratory: normal respiratory effort, lungs clear to auscultation Cardiovascular: RRR, no murmur, no edema Gastrointestinal (Abdomen): Inspection/Auscultation: normal bowel sounds Percussion/Palpation: abdomen nontender His abdomen feels full with at least two palpable masses, one centered around the left upper quadrant and the other, smaller one in his epigastric area. Psychiatric: Orientation: alert and oriented x 3 Affect: + anxious affect Lymphatic: no cervical or axillary lymphadenopathy Results & Data Vital Signs (Past 12 Hours) Vital Signs Temp Pulse Pulse Resp BP BP Pulse Ox 07/02/19 15:14 37.5 C 106 H 18 124/72 93 07/02/19 13:10 37.4 C 98 H 18 129/67 93 07/02/19 12:51 94 H 20 136/75 94 07/02/19 12:01 91 H 20 123/72 94 07/02/19 10:22 90 18 128/72 93 07/02/19 09:56 94 07/02/19 09:18 36.6 C 100 H 20 103/65 100 Laboratory Results Laboratory Tests 07/02/19 07/02/19 09:32 09:32 WBC 15.28 H Hgb 8.5 L Plt Count 232 Creatinine 1.90 H Glucose [address] A/P, 07/01/19: IMPRESSION: 1. Interval left nephrectomy with evidence of tumor recurrence 2. Multiple bilateral pulmonary nodules indicative of metastatic disease 3. 12 cm mass within the left nephrectomy bed with left psoas invasion consistent with tumor recurrence 4. Multiple peritoneal and extraperitoneal masses consistent with metastatic disease. The largest is a 20 cm mass within the anterior abdomen 5. Left para-aortic lymphadenopathy (1) Recurrent renal cell carcinoma of kidney Laterality: unspecified laterality Qualified Code(s): C64.9 - Malignant neoplasm of unspecified kidney, except renal pelvis
--- NOTE | 2019-07-02 18:07 | Emergency Department Note ---
Entered by Ann-Marie Stein acting as a scribe for History of Present Illness General Chief complaint: Flank Pain Stated complaint: BACK PAIN, LEFT SIDE PAIN Source: patient and family () History of Present Illness Onset (ago): week(s) (2) Location: back Pain Consistency: + constant Maximum Pain Intensity: 9 Quality: + other (flank pain) Associated symptoms: + loss of appetite The patient is a 63 year old male who presents to the Emergency Room with complaints of worsening flank pain beginning 2 weeks ago. The patient states he had a kidney along with a 10lb cancerous tumor removed about 10 weeks ago. He states he went to see his doctor 2 weeks ago for the pain and was told he would be in pain for a long while following his surgery. The patient states he visited his doctor last night and was told he now has 2 more tumors growing in the same location as the first. The patient's reports the patient has a loss of appetite. Home Medications Home Medications Medication Instructions Recorded Confirmed Type amlodipine 5 mg tablet 5 mg PO QAM #30 tab 05/15/19 07/02/19 Rx metoprolol tartrate 50 mg tablet 50 mg PO BID #60 tab 05/15/19 07/02/19 Rx tamsulosin 0.4 mg capsule 0.4 mg PO QPM #30 cap 05/15/19 07/02/19 Rx dutasteride 0.5 mg capsule 0.5 mg PO DAILY #90 cap 06/16/19 07/02/19 Rx Allergies Allergy/AdvReac Type Severity Reaction Status Date / Time No Known Allergies Allergy Verified 07/02/19 10:57 Past Med/Surg History Medical History (Updated 07/04/19 @ 11:43 by ZAIDA Mccollum) BPH (benign prostatic hyperplasia) Cancer of kidney PLANNING SURGERY Cancer related pain Chromophobe renal cell carcinoma (Chronic) Hypertension Hypertension (Chronic) Renal neoplasm (Chronic) S/p nephrectomy Surgical History History of left radical nephrectomy 04/22/2019 Hx of right inguinal hernia repair x2 Social History Preferred Language: Portuguese Communication Ability: Effective 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 and A total of 10 systems reviewed and were otherwise negative Physical Exam Vital Signs Vital Signs - 24 hr 07/02/19 09:18 07/02/19 09:56 07/02/19 10:22 Temperature 36.6 C Temperature Source Oral Pulse Rate 100 H Pulse Rate [Finger] 90 Pulse Rhythm [Finger] Respiratory Rate 20 18 Respiratory Effort / Characteristics Respiratory Depth Respiratory Pattern Blood Pressure 103/65 Blood Pressure [Left Arm] 128/72 Blood Pressure Mean 77 Blood Pressure Mean [Left Arm] 90 Pulse Oximetry 100 94 93 Oxygen Delivery Method Room Air Room Air Room Air Sepsis Recent Fever Within 48 Hours No Sepsis New/Unexplained Change in Mental Status No Sepsis Action Taken by Nursing No Action Required 07/02/19 12:01 07/02/19 12:51 Temperature Temperature Source Pulse Rate 94 H Pulse Rate [Finger] 91 H Pulse Rhythm [Finger] Regular Respiratory Rate 20 20 Respiratory Effort / Characteristics Non-Labored Respiratory Depth Normal Respiratory Pattern Regular Blood Pressure 136/75 Blood Pressure [Left Arm] 123/72 Blood Pressure Mean Blood Pressure Mean [Left Arm] 89 Pulse Oximetry 94 94 Oxygen Delivery Method Room Air Room Air Sepsis Recent Fever Within 48 Hours Sepsis New/Unexplained Change in Mental Status Sepsis Action Taken by Nursing Vital signs reviewed. General: Ill-appearing, tearful, anxious, in no significant distress. HEENT: No scleral icterus. Atraumatic. Cardiovascular: Regular rate and rhythm, no extra sounds. Pulmonary: Clear to auscultation bilaterally, normal work of breathing. Abdomen: Generalized abdominal tenderness; left greater than right. Soft, nondistended, positive bowel sounds. Musculoskeletal: Atraumatic, no peripheral edema. Neurologic: Patient awake alert and oriented x 3, Skin: Warm, dry, no rash Course Course 934: Past medical records reviewed. The patient was evaluated in room B12B. A complete history and physical exam was performed. 1041: Upon reevaluation, I discussed findings and results with the patient and his . They verbalized agreement of the treatment plan. I spoke with Dr. Pro of the [facility] Hospitalist Service. The patient will be evaluated for fu rther management and care. Administered Medications Amlodipine Besylate (Norvasc) 5 mg PO QAM SONNY Stop: 08/02/19 08:59 Last Admin: 07/04/19 12:33 Dose: 5 mg Documented by: [id number] Admin: 07/03/19 08:51 Dose: 5 mg Documented by: [id number] Hydromorphone HCl (Dilaudid) 1 mg IV Q2H PRN PRN Reason: Pain Stop: 07/16/19 13:11 Last Admin: 07/05/19 06:37 Dose: 1 mg Documented by: [id number] Admin: 07/04/19 20:35 Dose: 1 mg Documented by: [id number] Admin: 07/04/19 15:22 Dose: 1 mg Documented by: [id number] Admin: 07/04/19 11:49 Dose: 1 mg Documented by: [id number] Admin: 07/04/19 08:10 Dose: 1 mg Documented by: [id number] Admin: 07/04/19 05:32 Dose: 1 mg Documented by: [id number] Admin: 07/04/19 02:42 Dose: 1 mg Documented by: [id number] Admin: 07/03/19 23:30 Dose: 1 mg Documented by: [id number] Admin: 07/03/19 20:28 Dose: 1 mg Documented by: [id number] Admin: 07/03/19 16:45 Dose: 1 mg Documented by: [id number] Admin: 07/03/19 13:10 Dose: 1 mg Documented by: [id number] Admin: 07/03/19 08:51 Dose: 1 mg Documented by: [id number] Admin: 07/03/19 00:33 Dose: 1 mg Documented by: [id number] Admin: 07/02/19 20:11 Dose: 1 mg Documented by: [id number] Admin: 07/02/19 15:41 Dose: 1 mg Documented by: [id number] Doxycycline Hyclate 100 mg/ (Dextrose) 110 mls @ 50 mls/hr IV BID SONNY Stop: 07/09/19 20:59 Last Infusion: 07/04/19 23:00 Dose: 0 mls/hr Documented by: [id number] Admin: 07/04/19 20:38 Dose: 50 mls/hr Documented by: [id number] Infusion: 07/04/19 10:05 Dose: 0 mls/hr Documented by: [id number] Admin: 07/04/19 09:01 Dose: 110 mls/hr Documented by: [id number] Infusion: 07/03/19 23:00 Dose: 0 mls/hr Documented by: [id number] Admin: 07/03/19 20:37 Dose: 50 mls/hr Documented by: [id number] Infusion: 07/03/19 11:08 Dose: 0 mls/hr Documented by: [id number] Admin: 07/03/19 08:51 Dose: 50 mls/hr Documented by: [id number] Infusion: 07/02/19 22:38 Dose: 0 mls/hr Documented by: [id number] Admin: 07/02/19 20:16 Dose: 50 mls/hr Documented by: [id number] Metoprolol Tartrate (Lopressor) 50 mg PO BID SONYN Stop: 08/01/19 20:59 Last Admin: 07/04/19 20:29 Dose: 50 mg Documented by: [id number] Admin: 07/04/19 12:33 Dose: 50 mg Documented by: [id number] Admin: 07/03/19 20:30 Dose: 50 mg Documented by: [id number] Admin: 07/03/19 08:51 Dose: 50 mg Documented by: [id number] Admin: 07/02/19 20:12 Dose: 50 mg Documented by: [id number] Miscellaneous (Order Awaiting Action) 1 ea N/A QS SONNY Stop: 08/01/19 15:59 Last Admin: 07/04/19 23:34 Dose: Not Given Documented by: [id number] Admin: 07/04/19 16:49 Dose: Not Given Documented by: [id number] Admin: 07/04/19 09:01 Dose: Not Given Documented by: [id number] Admin: 07/04/19 00:18 Dose: Not Given Documented by: [id number] Admin: 07/03/19 16:45 Dose: Not Given Documented by: [id number] Admin: 07/03/19 08:51 Dose: Not Given Documented by: [id number] Admin: 07/03/19 00:30 Dose: Not Given Documented by: [id number] Admin: 07/02/19 15:21 Dose: Not Given Documented by: [id number] Morphine Sulfate (Ms Contin) 30 mg PO TID SONNY Stop: 07/18/19 13:59 Last Admin: 07/04/19 20:27 Dose: 30 mg Documented by: [id number] Admin: 07/04/19 13:54 Dose: 30 mg Documented by: [id number] Senna/Docusate Sodium (Senokot S) 1 tab PO QAM SONNY Stop: 08/01/19 13:11 Last Admin: 07/04/19 12:35 Dose: Not Given Documented by: [id number] Admin: 07/03/19 08:52 Dose: Not Given Documented by: [id number] Admin: 07/02/19 14:32 Dose: 1 tab Documented by: [id number] Tamsulosin HCl (Flomax) 0.4 mg PO QPM SONNY Stop: 08/01/19 20:59 Last Admin: 07/04/19 20:27 Dose: 0.4 mg Documented by: [id number] Admin: 07/03/19 20:29 Dose: 0.4 mg Documented by: [id number] Admin: 07/02/19 20:12 Dose: 0.4 mg Documented by: [id number] Discontinued Medications Enoxaparin Sodium (Lovenox) 40 mg SQ Q24H SONNY Stop: 08/01/19 13:59 Last Admin: 07/02/19 14:32 Dose: 40 mg Documented by: [id number] Hydromorphone HCl (Dilaudid) 0.5 mg IV NOW STA Stop: 07/02/19 09:46 Last Admin: 07/02/19 09:53 Dose: 0.5 mg Documented by: [id number] Hydromorphone HCl (Dilaudid) Confirm Administered Dose 1 mg .ROUTE .STK-MED ONE Stop: 07/02/19 13:19 Last Admin: 07/02/19 13:23 Dose: 1 mg Documented by: [id number] Sodium Chloride (Nss 1000ml) 1,000 mls @ 100 mls/hr IV .Q10H SONNY Stop: 07/02/19 19:44 Last Infusion: 07/02/19 14:35 Dose: 0 mls/hr Documented by: [id number] Admin: 07/02/19 09:53 Dose: 100 mls/hr Documented by: [id number] Lorazepam (Ativan) 0.5 mg in 1 mls @ 1 mls/min IV NOW STA Stop: 07/02/19 10:01 Last Admin: 07/02/19 10:20 Dose: 1 mls/min Documented by: [id number] Sodium Chloride (Nss 1000ml) 1,000 mls @ 100 mls/hr IV .Q10H SONNY Stop: 08/01/19 13:11 Last Infusion: 07/04/19 13:50 Dose: 0 mls/hr Documented by: [id number] Admin: 07/04/19 09:02 Dose: 100 mls/hr Documented by: [id number] Infusion: 07/04/19 09:02 Dose: 100 mls/hr Documented by: [id number] Admin: 07/03/19 23:32 Dose: 100 mls/hr Documented by: [id number] Infusion: 07/03/19 23:00 Dose: 0 mls/hr Documented by: [id number] Infusion: 07/03/19 17:16 Dose: 100 mls/hr Documented by: [id number] Infusion: 07/03/19 15:08 Dose: 0 mls/hr Documented by: [id number] Admin: 07/03/19 10:05 Dose: 100 mls/hr Documented by: [id number] Infusion: 07/03/19 10:05 Dose: 100 mls/hr Documented by: [id number] Admin: 07/03/19 00:30 Dose: 100 mls/hr Documented by: [id number] Infusion: 07/03/19 00:30 Dose: 100 mls/hr Documented by: [id number] Admin: 07/02/19 14:33 Dose: 100 mls/hr Documented by: [id number] Ceftriaxone Sodium (Rocephin) 1,000 mg in 50 mls @ 100 mls/hr IV TODAY@1330 [facility] Stop: 07/02/19 13:59 Last Infusion: 07/02/19 15:08 Dose: 0 mls/hr Documented by: [id number] Admin: 07/02/19 14:31 Dose: 100 mls/hr Documented by: [id number] Ondansetron HCl (Zofran) 4 mg IV NOW [facility] Stop: 07/02/19 09:46 Last Admin: 07/02/19 09:53 Dose: 4 mg Documented by: [id number] Medical Decision Making Differential Diagnosis Differential diagnoses includes but is not limited to metastatic recurrence, gastritis, peptic ulcer disease, GERD, gallbladder disease, pancreatitis, small bowel obstruction, acute coronary syndrome, pericarditis, ischemic bowel, irritable bowel disease, irritable bowel syndrome, appendicitis, diverticulitis, malignancy, hernia, urinary tract infection, torsion, perforation, trauma, infectious. Medical Records Attestation: I reviewed the patient's medical records. Home Medications Current Medication List: was personally reviewed by me Laboratory Data Attestation: I reviewed the patient's lab results. Result diagrams: 07/05/19 01:35 07/05/19 01:35 Lab Results 07/02/19 07/02/19 07/02/19 Range/Units 09:32 09:32 09:32 WBC 15.28 H (4.8-10.8) K/uL RBC 3.15 L (4.7-6.1) M/uL Hgb 8.5 L (14.0-18.0) g/dL Hct 25.7 L (42-52) % MCV 81.6 (80-100) fL MCH 27.0 (25-34) pg MCHC 33.1 (32-36) g/dL RDW Std Deviation 49.2 H (36.4-46.3) fL RDW Coeff of Mohamud 16.5 H (11.5-14.5) % Plt Count 232 (130-400) K/uL MPV 9.3 (7.4-10.4) fL Immature Gran % (Auto) 0.4 % Neut % (Auto) 85.0 % Lymph % (Auto) 4.2 % Alfalfa % (Auto) 9.4 % Eos % (Auto) 0.8 % Baso % (Auto) 0.2 % Immature Gran # (Auto) 0.06 H (0.00-0.02) K/uL Neut # (Auto) 12.99 H (1.4-6.5) K/uL Lymph # (Auto) 0.64 L (1.2-3.4) K/uL Alfalfa # (Auto) 1.44 H (0.11-0.59) K/uL Eos # (Auto) 0.12 (0-0.5) K/uL Baso # (Auto) 0.03 (0-0.2) K/uL Sodium 137 (136-145) mmol/L Potassium 4.1 (3.5-5.1) mmol/L Chloride 100 (98-107) mmol/L Carbon Dioxide 26 (21-32) mmol/L Anion Gap 11.0 (3-11) BUN 26 H (7-18) mg/dl Creatinine 1.90 H (0.6-1.4) mg/dl Est Cr Clr Drug Dosing 41.3 ml/min Est GFR ( Amer) 43.1 Est GFR (Non-Af Amer) 37.2 BUN/Creatinine Ratio 13.5 (10-20) Glucose 112 H (70-99) mg/dl Calcium 9.2 (8.5-10.1) mg/dl Total Bilirubin 0.8 (0.2-1) mg/dl AST 41 H (15-37) U/L ALT 36 (12-78) U/L Alkaline Phosphatase 100 (45-117) U/L NT-Pro-B Natriuret Pep 525 (0-900) pg/ml Total Protein 7.3 (6.4-8.2) gm/dl Albumin 3.0 L (3.4-5.0) gm/dl Globulin 4.3 H (2.5-4.0) gm/dl Albumin/Globulin Ratio 0.7 L (0.9-2) Lipase 108 (73-393) U/L Blood Pressure Blood Pressure Findings: Elevated blood pressure Blood Pressure Disposition: further management by hospitalist MDM Narrative This pt was evaluated and appeared to be anxious and tearful. CT imaging reports were reviewed and reveal metastatic disease in the abd. Pt was given IVF, IV dilaudid and ativan. Lab work is reassuring. Pt was d/w the hospitalist service for further management. Pt and are aware of the plan and agree. Impression & Plan Recurrent renal cell carcinoma of kidney, Intractable pain Discharge Plan Visit Data *Final* Discharge Date/Time: 07/02/19 12:51 Chief Complaint: Flank Pain Stated Complaint: BACK PAIN, LEFT SIDE PAIN ED Provider: Yeimy Matthew Discharge Problem: Recurrent renal cell carcinoma of kidney, Intractable pain Patient Disposition: Admitted As Inpatient Discharge Instructions Interventions: ED Discharge Assessment Last Done: 07/02/19 12:51 Discharge Problem: Recurrent renal cell carcinoma of kidney Qualifiers: Laterality: unspecified laterality Qualified Code(s): C64.9 - Malignant neoplasm of unspecified kidney, except renal pelvis The scribe's documentation has been prepared under my direction and personally reviewed by me in its entirety. I confirm that the note above accurately reflects all work, treatment, procedures, and medical decision making performed by me.
[2019-07-02] MEDS: TAMSULOSIN HCL 0.4 MG CAP PO SCH (20:12)
[2019-07-02] MEDS: METOPROLOL TARTRATE 50 MG TAB PO SCH (20:12)
[2019-07-02] MEDS: DOXYCYCLINE HYCLATE 100 MG in DEXTROSE 5% 100 ML IV SCH (20:16)
[2019-07-03] MEDS: SODIUM CHLORIDE 0.9% 1000ML 1,000 ML IV SCH ×3 (00:30→23:32)
[2019-07-03] MEDS: DUTASTERIDE ~ ORDER AWAITING ACTION SCH ×3 (00:30→16:45)
[2019-07-03] MEDS: HYDROmorphone INJ 1 MG/ML SYRINGE IV PRN ×6 (00:33→23:30)
[2019-07-03 07:57] LABS: Hemoglobin 6.4 g/dL (14.0-18.0); Mean Corpuscular Hemoglobin 27.8 pg (25-34); Mean Corpuscular Hgb Conc 33.7 g/dL (32-36); Mean Corpuscular Volume 82.6 fL (80-100); Mean Platelet Volume 8.6 fL (7.4-10.4); Platelet Count 160 K/uL (130-400); RDW Coefficient of Variation 16.4 % (11.5-14.5); RDW Standard Deviation 49.6 fL (36.4-46.3); White Blood Count 7.74 K/uL (4.8-10.8)
[2019-07-03 08:10] LABS: Albumin Level 2.2 gm/dl (3.4-5.0); BUN Creatinine Ratio 15.8 (10-20); Calcium 8.6 mg/dl (8.5-10.1); Creatinine Clr Calc Pharmacy 51.7 ml/min; Est GFR (African American) 55.2; Est GFR (Non-African American) 47.6
[2019-07-03 08:20] LABS: Albumin Globulin Ratio 0.6 (0.9-2); Bilirubin,Total 0.3 mg/dl (0.2-1); Globulin 3.7 gm/dl (2.5-4.0); Total Protein 5.9 gm/dl (6.4-8.2)
[2019-07-03] MEDS ORDERED: SODIUM CHLORIDE 0.9% 250 ML IV PRN (08:34)
[2019-07-03 08:42] LABS: ALC (manual) 0.54 K/uL (1.2-3.4); ANC (manual) 6.66 K/uL (1.4-6.5); Basophils # (manual) 0.07 K/uL (0-0.2); Basophils % (manual) 0.9 %; Blast # (manual) 0.07 K/uL (0-0); Blast Cells % (manual) 0.9 %; Eosinophils # (manual) 0.13 K/uL (0-0.5); Eosinophils % (manual) 1.7 %; Lymphocytes # (manual) 0.54 K/uL (1.2-3.4); Monocytes # (manual) 0.27 K/uL (0.11-0.59); Monocytes % (manual) 3.5 %; Neutrophils # (manual) 6.66 K/uL (1.4-6.5); RBC Morphology Unremarkable
[2019-07-03] MEDS: METOPROLOL TARTRATE 50 MG TAB PO SCH ×2 (08:51→20:30)
[2019-07-03] MEDS: DOXYCYCLINE HYCLATE 100 MG in DEXTROSE 5% 100 ML IV SCH ×2 (08:51→20:37)
[2019-07-03] MEDS: AMLODIPINE BESYLATE 5 MG TAB PO SCH (08:51)
[2019-07-03] MEDS: DOCUSATE SODIUM/SENNA 50/8.6MG TAB PO SCH (08:52)
--- NOTE | 2019-07-03 08:53 | Urology Consultation ---
Date of Consultation July 03, 2019 Assessment & Plan (1) Recurrent renal cell carcinoma of kidney: Widely metastatic RCC - unfortunately, this has been a rapid and ultra-aggressive recurrence - surgical metastectomy is not feasible - initial path was chromophobe with fairly extensive sarcomatoid features - unfortunately, there isn't a lot of research on best chemo for chromophobe variant - clear cell with sarcomatoid features seems to respond best to ipilimumab and nivolumab combo therapy +/ cabozantinib - I certainly would defer to Dr. Conway regarding the best option for Mr. Sterling - unfortunately, Mr. Sterling is very understanding that his prognosis is quite poor given the aggressiveness and extent of his disease History of Present Illness Attending Physician: Selwyn Morales MD History of Present Illness unfortunate gentleman known to me because of recent left radical nephrectomy for a massive left RCC (Apr) over the past several weeks, he has developed increasing pain and cough ultimately prompted ER visit CT - scattered, and relatively massive met disease in the chest, abdomen, psoas labs relatively stable pain currently controlled consultation with Dr. Conway last night definitive plan for chemo pending he desires aggressive treatment if possible Allergies Allergy/AdvReac Type Severity Reaction Status Date / Time No Known Allergies Allergy Verified 07/02/19 10:57 Home Medications Home Medications Medication Instructions Recorded Confirmed Type amlodipine 5 mg tablet 5 mg PO QAM #30 tab 05/15/19 07/02/19 Rx metoprolol tartrate 50 mg tablet 50 mg PO BID #60 tab 05/15/19 07/02/19 Rx tamsulosin 0.4 mg capsule 0.4 mg PO QPM #30 cap 05/15/19 07/02/19 Rx dutasteride 0.5 mg capsule 0.5 mg PO DAILY #90 cap 06/16/19 07/02/19 Rx Patient History Medical History BPH (benign prostatic hyperplasia) Cancer of kidney PLANNING SURGERY Chromophobe renal cell carcinoma (Chronic) Hypertension Hypertension (Chronic) Renal neoplasm (Chronic) S/p nephrectomy Surgical History History of left radical nephrectomy 04/22/2019 Hx of right inguinal hernia repair x2 Social History Preferred Language: Italian 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 Other Information That Helps Us Care for You: No Feels Safe at Home: Yes Safety Concerns: Feels Safe At This Time Smoking Status: Never smoker Second Hand Exposure: No ; Hx Alcohol Use: No Hx Substance Use: No Seatbelt Use: never Review of Systems Constitutional: + body aches and + weight loss; no fever, no chills and no fatigue Eyes: no worsening vision Ear, Nose, Mouth, Throat: no facial pain and no pain with swallowing Respiratory: + cough; no dyspnea Cardiovascular: no chest pain and no palpitations Gastrointestinal: + abdominal pain; no nausea and no vomiting Genitourinary: no urinary frequency, no nocturia and no hematuria Musculoskeletal: + back pain Integumentary: no rash and no urticaria Neurologic: no gait abnormality and no unsteadiness Psychiatric: no behavioral changes and no depression Endocrine: no fatigue Physical Exam Constitutional: well developed and well nourished Neck: neck nontender Respiratory: normal respiratory effort; no respiratory distress and does not use accessory muscles Cardiovascular: Rate/Rhythm: regular rate Vessels: radial pulses present Extremities: no edema Gastrointestinal (Abdomen): Percussion/Palpation: + abdomen tender; no guarding and + abdomen not soft (firm masses palpable on exam (several)) Musculoskeletal: Head/Neck/Chest: normocephalic and head atraumatic Extremities: extremities normal to inspection Skin: no rashes and no lesions Trauma: no evidence of skin trauma Neurologic: awake; not obtunded Speech / Cognition: normal speech Motor/Sensory: no tremor Psychiatric: Orientation: alert and oriented x 3 Genitourinary: no CVA tenderness Lymphatic: no lymphadenopathy Results & Data Vital Signs (Past 12 Hours) Vital Signs Temp Pulse Resp BP Pulse Ox 07/03/19 06:56 36.8 C 82 20 125/61 98 07/03/19 04:24 36.7 C 86 18 116/65 95 07/02/19 22:29 37.0 C 90 18 119/71 95 PG Care Time/CCT Total # of Minutes Spent Total Time Spent with Patient: Total time spent is greater than 50% in coordination of care (as documented) at patient's floor/unit and/or counseling patient: (1) Recurrent renal cell carcinoma of kidney Laterality: unspecified laterality Qualified Code(s): C64.9 - Malignant neoplasm of unspecified kidney, except renal pelvis
--- NOTE | 2019-07-03 11:06 | Hospitalist Progress Note ---
Date of Service July 03, 2019 Assessment & Plan (1) Metastatic renal cell carcinoma: Consulted hematology oncology Dr. Conway Consulted urology Dr. Arora Continue IV fluid hydration with normal saline 100 cc/h Continue pain management Continue ceftriaxone empirically - unclear source of infection/inflammation - procalcitonin elevated, leukocytosis - cultures were not drawn on admission and at this point I doubt they would result as WBCs are trending down. Will order CXR 2 view as patient is coughing. 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 PSA 2.09 normal (6) Hypertension: Continue home medicine, metoprolol tartrate 50 mg p.o. twice daily and amlodipine 5 mg p.o. every morning. Blood pressure stable now. Continue monitoring. (7) DVT prophylaxis: Hold chemoprophylaxis for anemia, SCDs Supervising Physician Co-Signing Physician Notes I supervised Christelle Guzman NP on this patient's care. I examined the patient today independently of her. I discussed the plan of care with her with the plan being as written in her note except for any following changes/exceptions: None. Spent time speaking with Mr. Sterling and his fiancee regarding his diagnosis. Unfortunately, I do think he will have side effects from whatever chemotherapy he eventually, and we did discuss this in depth, along with the idea that he needs a biopsy to be sure this is the same cancer that was in the kidney. Subjective Ms. Sterling is having back pain which is tolerably controlled with pain medic ations. He has a non productive cough. He was nauseas yesterday but this has improved. ROS Constitutional: no chills, aches, sweats or fever Respiratory: no sob, sputum, or wheezing Cardiac: no chest pain, palpitations, edema, orthopnea or lightheadedness GI: no abdominal pain, nausea, vomiting, diarrhea or constipation : no dysuria or hesitancy Extremities: no joint pain or weakness Skin: no rash All other systems reviewed and negative Physical Exam Physical Exam: General: no distress Eyes: normal inspection, PERLL Respiratory: chest non tender, clear to auscultation, normal breath sounds, no respiratory distress, no accessory muscle use Cardiac: regular rate and rhythm, no rub or gallop, no murmur, no edema, no jvd GI/: active bowel sounds, no abd pain or tenderness, soft, non distended Extremities: normal range of motion, normal strength, non tender Neuro/Psych: alert and oriented x 3, normal mood and affect Skin: normal color, dry Results & Data Vital Signs (Past 12 Hours) Vital Signs Temp Pulse Pulse Resp BP BP Pulse Ox 07/03/19 10:27 36.9 C 80 16 126/71 95 07/03/19 06:56 36.8 C 82 20 125/61 98 07/03/19 04:24 36.7 C 86 18 116/65 95 PG Care Time/CCT Total # of Minutes Spent Total Time Spent with Patient: Total time spent is greater than 50% in coordination of care (as documented) at patient's floor/unit and/or counseling patient:
--- NOTE | 2019-07-03 13:38 | XRay Report ---
XR chest 2V PA/lateral CLINICAL HISTORY: 63 years-old Male presenting with cough, leukocytosis. TECHNIQUE: PA and lateral views of the chest were obtained. COMPARISON: None. FINDINGS: Cardiomediastinal silhouette normal. Possible nodules in the left midlung. Apparent subpleural/periph eral opacity in the posterior lower lung. It is difficult to ascertain if this is on the right or on the left as it is best visualized on lateral view. No additional opacity. No pleural effusion or pneu mothorax. Osseous structures normal. Upper abdomen normal. IMPRESSION: 1. Lower lung subpleural/peripheral opacity. Recommend chest CT for further evaluation. This does no t have a typical appearance for pneumonia though an underlying nodule is not included. 2. Additional suspected nodules in the left midlung. Electronically signed by: Vinicio Rowland M.D. 07/03/2019 1:37 PM
--- NOTE | 2019-07-03 17:17 | CT Scan Report ---
CT chest wo con CLINICAL HISTORY: 63 years-old Male presenting with metastasis to the lungs, cough. TECHNIQUE: Multidetector CT imaging of the chest was performed without the use of intravenous contras t. IV contrast: None. One or more dose lowering techniques were used consistent with the principles o f ALARA (as low as reasonably achievable), including automatic exposure control, mA or kV adjustment to individual patient size, and/or use of iterative reconstruction. COMPARISON: None. CT DOSE (mGy.cm): The estimated cumulative dose is 239.46 mGy.cm. FINDINGS: Double End Trimmer topogram: Unremarkable. Soft tissues: Normal thyroid and thoracic inlet. Gynecomastia. No axillary, supraclavicular, mediasti nal, or hilar lymphadenopathy. Normal aorta. Normal heart size. Coronary artery calcification. The in terventricular blood flow is less dense than adjacent myocardium suggesting anemia. Trace bilateral p leural effusions. There may also be a loculated portion versus a subpleural consolidation in the post erior basal right lower lobe. Ascites noted in the upper abdomen. Abnormal soft tissue in the retrope ritoneum is evident and bony partially visualized as well as abnormal soft tissue in the subxiphoid r egion. Lungs and airways: No pneumothorax. Central airways patent. Pulmonary arteries are not significantly enlarged relative to adjacent bronchi. No interlobular septal thickening. Multiple (over 20) bilatera l solid pulmonary nodules in all 5 lobes, the largest on the right measuring 12 mm and on the left me asuring 10 mm. It is unclear if the subpleural opacity in the posterior basal right lower lobe repres ents subpleural consolidation such as rounded atelectasis or a loculated pleural fluid pocket. Trace dependent groundglass opacity in the right middle lobe. Musculoskeletal: No destructive osseous lesion. IMPRESSION: 1. Multiple bilateral solid pulmonary nodules involving all 5 lobes consistent with metastatic disea se. 2. Dependent groundglass opacity in the right middle lobe may represent a superimposed minimal infla mmatory or infectious infiltrate. 3. Trace bilateral pleural effusions. It is difficult to exclude pleural metastatic involvement. 4. Subpleural consolidation such as rounded atelectasis versus loculated pleural fluid in the region of the posterior basal right lower lobe. Attention on follow-up. 5. Anemia. 6. Evidence of metastatic disease in the abdomen. Electronically signed by: Vinicio Rowland M.D. 07/03/2019 5:16 PM
[2019-07-03] MEDS: TAMSULOSIN HCL 0.4 MG CAP PO SCH (20:29)
[2019-07-04] MEDS: DUTASTERIDE ~ ORDER AWAITING ACTION SCH ×4 (00:18→23:34)
[2019-07-04] MEDS: HYDROmorphone INJ 1 MG/ML SYRINGE IV PRN ×6 (02:42→20:35)
[2019-07-04 05:57] LABS: Basophils # (auto) 0.02 K/uL (0-0.2); Basophils % (auto) 0.3 %; Eosinophils # (auto) 0.24 K/uL (0-0.5); Eosinophils % (auto) 3.2 %; Hemoglobin 9.3 g/dL (14.0-18.0); Immature Granulocytes # (auto) 0.04 K/uL (0.00-0.02); Immature Granulocytes % (auto) 0.5 %; Lymphocytes # (auto) 0.53 K/uL (1.2-3.4); Mean Corpuscular Hemoglobin 27.9 pg (25-34); Mean Corpuscular Hgb Conc 33.2 g/dL (32-36); Mean Corpuscular Volume 84.1 fL (80-100); Mean Platelet Volume 9.3 fL (7.4-10.4); Monocytes # (auto) 0.62 K/uL (0.11-0.59); Monocytes % (auto) 8.2 %; Neutrophils # (auto) 6.08 K/uL (1.4-6.5); Neutrophils % (auto) 80.8 %; Platelet Count 178 K/uL (130-400); RDW Coefficient of Variation 16.1 % (11.5-14.5); RDW Standard Deviation 49.7 fL (36.4-46.3); Red Blood Count 3.33 M/uL (4.7-6.1); White Blood Count 7.53 K/uL (4.8-10.8)
[2019-07-04 06:26] LABS: Albumin Level 2.3 gm/dl (3.4-5.0); BUN Creatinine Ratio 13.9 (10-20); Calcium 8.6 mg/dl (8.5-10.1); Creatinine Clr Calc Pharmacy 57.6 ml/min; Est GFR (African American) 62.9; Est GFR (Non-African American) 54.3; Potassium 3.7 mmol/L (3.5-5.1)
[2019-07-04 06:29] LABS: Albumin Globulin Ratio 0.6 (0.9-2); Bilirubin,Total 0.7 mg/dl (0.2-1); Globulin 3.9 gm/dl (2.5-4.0); Total Protein 6.2 gm/dl (6.4-8.2)
[2019-07-04] MEDS: DOXYCYCLINE HYCLATE 100 MG in DEXTROSE 5% 100 ML IV SCH ×2 (09:01→20:38)
[2019-07-04] MEDS: SODIUM CHLORIDE 0.9% 1000ML 1,000 ML IV SCH (09:02)
--- NOTE | 2019-07-04 11:44 | CT Scan Report ---
CT-GUIDED FINE NEEDLE ASPIRATION OF LEFT RETROPERITONEAL MASS CLINICAL HISTORY: Suspected renal cell recurrence status post nephrectomy. COMPARISON STUDY: CT of the abdomen and pelvis July 01, 2019. PROCEDURE: The procedure, risks and benefits were discussed with the patient, including the risk of b leeding, infection and injury to adjacent structures. The patient agreed to the procedure and informe d written consent was obtained. The procedure was performed by Dr. Lion following a timeout. Pat ient was placed prone on CT table and axial unenhanced images through the abdomen were obtained. Nume lamine abdominal masses were noted, including the dominant left retroperitoneal nephrectomy bed mass wh ich was targeted for fine needle aspiration. In addition, areas of increased attenuation were noted o n the preprocedure CT, measuring up to 3.6 cm which favor clot. Skin was prepped and draped in steril e fashion and local anesthesia was achieved with 1% lidocaine. Under intermittent CT guidance, 2 25-g auge fine needle aspirations were performed within the left retroperitoneal mass. Samples were deemed preliminarily adequate by pathology. No associated hemorrhage was noted on post procedure CT. Post p rocedure CT was unchanged in appearance from preprocedure CT. IMPRESSION: 1. Successful CT-guided fine needle aspiration of a left retroperitoneal/left nephrectomy bed mass. 2. A few foci of increased attenuation within several abdominal masses on preprocedure CT which favor s hemorrhage. Discussed with Selwyn Morales at time of dictation. Electronically signed by: Moreno Lion M.D. 07/04/2019 11:43 AM
--- NOTE | 2019-07-04 11:47 | Palliative Care Consultation ---
Date of Consultation July 04, 2019 Assessment & Plan (1) Cancer related pain: -63 year old male patient with recently diagnosed renal cell carcinoma s/p radical left nephrectomy on 04/22/19, who presented to the hospital with intractable abdominal pain. This patient initially was found to have a large 27cm left kidney tumor on CT scan in April 2019-- patient had had a cough for quite some time and the tumor was incidentally found on a chest CT. He underwent surgery and the tumor removed, negative margins, and was believed to have had the entirety of the disease removed. Unfortunately about three weeks post-op patient began having abdominal pain and distension again. Patient jacqueline mandujano developed the same cough. He saw his PCP who ordered an abdominal CT which showed "Multiple bilateral pulmonary nodules indicative of metastatic disease, 12 cm mass within the left nephrectomy bed with left psoas invasion consistent with tumor recurrence, multiple peritoneal and extraperitoneal masses consistent with metastatic disease. The largest is a 20 cm mass within the anterior abdomen, left para-aortic lymphadenopathy." Heme/onc was consulted. Biopsy of the mass completed today-- pathology pending. Of course if this is in fact recurrence of the renal cell carcinoma of this magnitude, the prognosis is not good. Patient will likely be discharged from the hospital after the biopsy and once he has good pain control-- he will follow up with heme/onc. Palliative care consulted to assist with pain management and supportive care. -Met first with patient's fianceSharon, in room 461 while patient was in CT having the biopsy. She was tearful throughout conversation and had many questions about this disease. Dr. Espitia and I answered her questions as best we could. -Returned to the room when patient came back from biopsy. He is pleasant, awake, alert and oriented. Patient made several comments about not knowing if anything could be done for him for this extensively metastatic disease. He is aware that plans will have to be made once pathology is confirmed and he is able to meet with heme/onc as an outpatient. -We mostly talked about pain management. Patient's pain is mostly in the left side of his abdomen. It is constant and aching, stabbing at times. Moving, twisting, sitting upright, all exacerbates the pain to a 10/10 at times. The Dilaudid does help quite a bit, but only lasts about 2-2.5 hours. -He used 7mg IV Dilaudid in 24 hours. Will order MS Contin 30mg PO TID. IF this is ineffective, please increase to 45mg BID and 30mg once a day (to keep the TID schedule). -Hopefully once we get to a steady-state of long-acting pain medication, his Dilaudid use will decrease and he can use the Oxycodone 5mg PRN for breakthrough pain. -Gave information for outpatient follow up with Dr. Espitia if needed. (2) Metastatic renal cell carcinoma: (3) Anemia: History of Present Illness Reason for Consultation: Cancer related pain Requesting Physician: ZAIDA Velasquez Attending Physician: Selwyn Morales MD History of Present Illness This 63 year old male patient with recently diagnosed renal cell carcinoma s/p radical left nephrectomy on 04/22/19, who presented to the hospital with intractable abdominal pain. This patient initially was found to have a large 27cm left kidney tumor on CT scan in April 2019-- patient had had a cough for quite some time and the tumor was incidentally found on a chest CT. He underwent surgery and the tumor removed, negative margins, and was believed to have had the entirety of the disease removed. Unfortunately about three weeks post-op patient began having abdominal pain and distension again. Patient eventually developed the same cough. He saw his PCP who ordered an abdominal CT which showed "Multiple bilateral pulmonary nodules indicative of metastatic disease, 12 cm mass within the left nephrectomy bed with left psoas invasion consistent with tumor recurrence, multiple peritoneal and extraperitoneal masses consistent with metastatic disease. The largest is a 20 cm mass within the anterior abdomen, left para-aortic lymphadenopathy." Heme/onc was consulted. Biopsy of the mass completed today-- pathology pending. Of course if this is in fact recurrence of the renal cell carcinoma of this magnitude, the prognosis is not good. Patient will likely be discharged from the hospital after the biopsy and once he has good pain control-- he will follow up with heme/onc. Palliative care consulted to assist with pain management and supportive care. Thank you kindly for this consult. Palliative care team will follow as needed. Allergies Allergy/AdvReac Type Severity Reaction Status Date / Time No Known Allergies Allergy Verified 07/02/19 10:57 Home Medications Home Medications Medication Instructions Recorded Confirmed Type amlodipine 5 mg tablet 5 mg PO QAM #30 tab 05/15/19 07/02/19 Rx metoprolol tartrate 50 mg tablet 50 mg PO BID #60 tab 05/15/19 07/02/19 Rx tamsulosin 0.4 mg capsule 0.4 mg PO QPM #30 cap 05/15/19 07/02/19 Rx dutasteride 0.5 mg capsule 0.5 mg PO DAILY #90 cap 06/16/19 07/02/19 Rx Patient History Medical History (Updated 07/04/19 @ 11:43 by ZAIDA Mccollum) BPH (benign prostatic hyperplasia) Cancer of kidney PLANNING SURGERY Cancer related pain Chromophobe renal cell carcinoma (Chronic) Hypertension Hypertension (Chronic) Renal neoplasm (Chronic) S/p nephrectomy Surgical History History of left radical nephrectomy 04/22/2019 Hx of right inguinal hernia repair x2 Social History Preferred Language: Tongan Communication Ability: Effective Front End Developer Required: No Beliefs That Will Affect Care: None Current Living Situation: Significant Other current occupational status: employed current occupation: [employer] Feels Safe at Home: Yes Smoking Status: Never smoker Second Hand Exposure: No ; Hx Alcohol Use: No Hx Substance Use: No Seatbelt Use: never Review of Systems Review of Systems: Const: No weakness ENMT: No dysphagia Resp: No SOB, cough is improved Cardio: No chest pain, no edema GI: + left sided abdominal pain, no nausea, no vomiting MS: No musculoskeletal pain Neuro: No confusion Psych: No anxiety, feeling "down" due to situation Physical Exam Constitutional: well developed and well nourished; no acute distress Eyes: PERRL ENMT: external ear and nose normal, oropharynx normal Neck: normal visual inspection Respiratory: normal respiratory effort; no labored breathing Cardiovascular: RRR, no murmur, no edema Gastrointestinal (Abdomen): Inspection/Auscultation: + abdomen distended (somewhat firm) and normal bowel sounds Percussion/Palpation: + abdomen tender (mildly tender) Skin: normal turgor Neurologic: moves all extremities and awake Psychiatric: A+Ox3, euthymic affect Insight: good insight Results & Data Vital Signs (Past 12 Hours) Vital Signs Temp Pulse Resp BP Pulse Ox 07/04/19 07:19 37.1 C 85 16 145/66 H 92 07/04/19 02:45 37.2 C 78 18 127/66 94 07/04/19 00:00 36.7 C 74 18 123/65 92 Time Spent Midlevel 70 minutes with >50% of the time spent at bedside with patient and family di scussing pain management and providing supportive care.
[2019-07-04] MEDS: AMLODIPINE BESYLATE 5 MG TAB PO SCH (12:33)
[2019-07-04] MEDS: METOPROLOL TARTRATE 50 MG TAB PO SCH ×2 (12:33→20:29)
[2019-07-04] MEDS: DOCUSATE SODIUM/SENNA 50/8.6MG TAB PO SCH (12:35)
--- NOTE | 2019-07-04 12:56 | Hospitalist Progress Note ---
Date of Service July 04, 2019 Assessment & Plan (1) Metastatic renal cell carcinoma: Consulted hematology oncology Dr. Conway Consulted urology Dr. 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 PSA 2.09 normal (6) Hypertension: Continue home medicine, metoprolol tartrate 50 mg p.o. twice daily and amlodipine 5 mg p.o. every morning. Blood pressure stable now. Continue monitoring. (7) DVT prophylaxis: Hold chemoprophylaxis for bleeding, SCDs Supervising Physician Co-Signing Physician Notes I supervised Christelle Guzman NP on this patient's care. I examined the patient today independently of her. I discussed the plan of care with her with the plan being as written in her note except for any following changes/exceptions: None. Less pain now that he is on MS Contin and Dilaudid. He is able to walk the halls. He is dismayed by the idea that pathology won't come back for another few days, but understands there isn't much we can do at this point. Just got his hgb drawn, and we will watch for any other signs of bleeding. Subjective Mr. Sterling had his CT guided biopsy today. He continues to have pain especially in his back and abdomen. ROS Constitutional: no chills, aches, sweats or fever Respiratory: no sob,cough, sputum, or wheezing Cardiac: no chest pain, palpitations, edema, orthopnea or lightheadedness GI: no nausea, vomiting, diarrhea or constipation : no dysuria or hesitancy Extremities: no joint pain or weakness Skin: no rash All other systems reviewed and negative Physical Exam Physical Exam: General: no distress Eyes: normal inspection, PERLL Respiratory: chest non tender, clear to auscultation, normal breath sounds, no respiratory distress, no accessory muscle use Cardiac: regular rate and rhythm, no rub or gallop, no murmur, no edema, no jvd GI/: active bowel sounds, no abd pain or tenderness, firm abdomen, non distended Extremities: normal range of motion, normal strength, non tender Neuro/Psych: alert and oriented x 3, normal mood and affect Skin: normal color, dry Results & Data Vital Signs (Past 12 Hours) Vital Signs Temp Pulse Resp BP BP Pulse Ox 07/04/19 12:39 37 C 86 20 139/69 94 07/04/19 07:19 37.1 C 85 16 145/66 H 92 07/04/19 02:45 37.2 C 78 18 127/66 94 PG Care Time/CCT Total # of Minutes Spent Total Time Spent with Patient: Total time spent is greater than 50% in coordination of care (as documented) at patient's floor/unit and/or counseling patient:
[2019-07-04] MEDS: MoRPHine SULFATE CR 15 MG TABCR PO SCH ×2 (13:54→20:27)
[2019-07-04] MEDS: TAMSULOSIN HCL 0.4 MG CAP PO SCH (20:27)
[2019-07-04] MEDS ORDERED: DOCUSATE SODIUM 100 MG CAP PO SCH (21:00)
[2019-07-05 01:53] LABS: Basophils # (auto) 0.03 K/uL (0-0.2); Basophils % (auto) 0.4 %; Eosinophils # (auto) 0.31 K/uL (0-0.5); Eosinophils % (auto) 3.8 %; Hematocrit (blood only) 26.3 % (42-52); Hemoglobin 8.5 g/dL (14.0-18.0); Immature Granulocytes # (auto) 0.05 K/uL (0.00-0.02); Immature Granulocytes % (auto) 0.6 %; Lymphocytes # (auto) 0.66 K/uL (1.2-3.4); Mean Corpuscular Hemoglobin 27.7 pg (25-34); Mean Corpuscular Hgb Conc 32.3 g/dL (32-36); Mean Corpuscular Volume 85.7 fL (80-100); Mean Platelet Volume 9.2 fL (7.4-10.4); Monocytes # (auto) 0.79 K/uL (0.11-0.59); Monocytes % (auto) 9.6 %; Neutrophils # (auto) 6.41 K/uL (1.4-6.5); Neutrophils % (auto) 77.6 %; Nucleated RBC # (auto) 0.02 K/uL (0-0); Nucleated RBC % (auto) 0.3 %; Platelet Count 192 K/uL (130-400); RDW Coefficient of Variation 16.5 % (11.5-14.5); RDW Standard Deviation 51.6 fL (36.4-46.3); Red Blood Count 3.07 M/uL (4.7-6.1); White Blood Count 8.25 K/uL (4.8-10.8)
[2019-07-05 02:08] LABS: Albumin Level 2.2 gm/dl (3.4-5.0); Calcium 8.3 mg/dl (8.5-10.1); Est GFR (African American) 63.5; Est GFR (Non-African American) 54.8; Potassium 3.9 mmol/L (3.5-5.1)
[2019-07-05 02:11] LABS: Albumin Globulin Ratio 0.6 (0.9-2); Bilirubin,Total 0.6 mg/dl (0.2-1); Globulin 3.6 gm/dl (2.5-4.0); Total Protein 5.8 gm/dl (6.4-8.2)
[2019-07-05] MEDS: HYDROmorphone INJ 1 MG/ML SYRINGE IV PRN (06:37)
[2019-07-05] MEDS: METOPROLOL TARTRATE 50 MG TAB PO SCH ×2 (08:21→20:17)
[2019-07-05] MEDS: AMLODIPINE BESYLATE 5 MG TAB PO SCH (08:21)
[2019-07-05] MEDS: MoRPHine SULFATE CR 15 MG TABCR PO SCH ×3 (08:23→20:17)
[2019-07-05] MEDS: DUTASTERIDE ~ ORDER AWAITING ACTION SCH ×3 (08:24→23:27)
[2019-07-05] MEDS ORDERED: FERROUS SULFATE 325 MG TAB PO SCH (09:00)
[2019-07-05] MEDS: DOXYCYCLINE HYCLATE 100 MG in DEXTROSE 5% 100 ML IV SCH (09:20)
[2019-07-05] MEDS: DOCUSATE SODIUM/SENNA 50/8.6MG TAB PO SCH (09:20)
[2019-07-05] MEDS ORDERED: MoRPHine SULFATE CR 15 MG TABCR PO ONE (10:00)
--- NOTE | 2019-07-05 13:23 | Hospitalist Progress Note ---
Date of Service Mr. Sterling continues to have significant pain requiring IV dilaudid. His hgb was stable overnight. He continues to have a mild non productive cough. July 05, 2019 Assessment & Plan (1) Metastatic renal cell carcinoma: Consulted hematology oncology Dr. Conway Consulted urology Dr. Arora Continue pain management Continue doxycycline - chest CT equivocal for small area of consolidation/inflammation - procalcitonin trending down, leukocytosis resolved CT chest also showed pulmonary nodules in all five lobes Biopsy 07/04 (2) Cancer related pain: Pain is in abdomen and back Started on MS Contin yesterday - will increase per palliative recommendations to 45 mg bid, 30 mg midday and when controlled, will use 5 mg po oxycodone for breakthrough Continues to require IV pain control. 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 PSA 2.09 normal (7) Hypertension: Stable Continue home medicine, metoprolol tartrate 50 mg p.o. twice daily and amlodipine 5 mg p.o. every morning. Blood pressure stable now. Continue monitoring. (8) DVT prophylaxis: Hold chemoprophylaxis for bleeding, SCDs and ambulation Subjective ROS Constitutional: no chills, aches, sweats or fever Respiratory: no sob,cough, sputum, or wheezing Cardiac: no chest pain, palpitations, edema, orthopnea or lightheadedness GI: no nausea, vomiting, diarrhea or constipation : no dysuria or hesitancy Extremities: no joint pain or weakness Skin: no rash All other systems reviewed and negative Physical Exam Physical Exam: General: no distress Eyes: normal inspection, PERLL Respiratory: chest non tender, clear to auscultation, normal breath sounds, no respiratory distress, no accessory muscle use Cardiac: regular rate and rhythm, no rub or gallop, no murmur, no edema, no jvd GI/: active bowel sounds, abdomen tender and firm, non distended Extremities: normal range of motion, normal strength, non tender Neuro/Psych: alert and oriented x 3, normal mood and affect Skin: normal color, dry Results & Data Vital Signs (Past 12 Hours) Vital Signs Temp Pulse Resp BP Pulse Ox 07/05/19 07:44 36.8 C 85 16 133/70 92 07/05/19 03:42 36.8 C 80 19 124/69 92 PG Care Time/CCT Total # of Minutes Spent Total Time Spent with Patient: Total time spent is greater than 50% in coordination of care (as documented) at patient's floor/unit and/or counseling patient:
[2019-07-05] MEDS ORDERED: Nursing to Pharmacy Communication ONE (13:58)
--- NOTE | 2019-07-05 15:27 | Hematology/Oncology Prog Note ---
Date of Service July 05, 2019 Assessment & Plan (1) Recurrent renal cell carcinoma of kidney: Mr. Sterling's biposy results are pending, though the initial adequacy review clearly showed malignant cells. 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 As a result, I suspect that is the direction we will take. I will make these arrangements as an outpatient. For now, we should also continue to work on his pain control and his bowels. I would like him to have a bowel movement before he goes and he should be on a regimen that keeps him going at least every other day while on narcotics. Present on Admission?: Yes (2) Anemia: I am less clear how to explain his anemia. The tumors on his CT are definitely not hematomas, but some of them have changes that appear hemorrhagic, so he may have bled intra-tumorally. He has no evidence of gross blood loss anywhere and has no exam findings to suggest, for instance, intraperitoneal bleeding. He may have some component of anemia of malignancy. Also, he has a few nucleated RBCs in his peripheral blood, suggesting possible marrow disease, though this finding can also be seen in patients with high red cell turnover. As long as his hemoglobin remains stable, I don't think we need to investigate further for bleeding. However, if he does drop again, I would consider investigating for GI losses. Present on Admission?: Yes Subjective Mr. Sterling had his biopsy yesterday and did OK, though he was sore from laying down for the procedure. His hemoglobin drifted down a bit after his transfusion yesterday, but it ticked back up a bit later. He continues to deny any evidence of bleeding. He has been constipated since arrival. He had a couple of loose stools when he was first here, but has not moved his bowels since. He also is still requiring doses of IV narcotics. He denies any chest pain, shortness of breath, or headaches. His belly has been more bloated, but he attributes this in part to his constipation. Review of Systems Review of Systems: All systems reviewed & are unremarkable except as noted in HPI & below Physical Exam Constitutional: comfortable; no acute distress Eyes: + anicteric sclerae ENMT: external ear and nose normal, oropharynx normal Respiratory: normal respiratory effort, lungs clear to auscultation Cardiovascular: RRR, no murmur, no edema Gastrointestinal (Abdomen): Inspection/Auscultation: + abdomen distended and normal bowel sounds Percussion/Palpation: + abdominal mass (large, easily palpable mass in his left abdomen); abdomen nontender and no guarding Psychiatric: Orientation: alert and oriented x 3 Affect: + anxious affect Lymphatic: no cervical or axillary lymphadenopathy Results & Data Vital Signs (Past 12 Hours) Vital Signs Temp Pulse Resp BP Pulse Ox 07/05/19 07:44 36.8 C 85 16 133/70 92 07/05/19 03:42 36.8 C 80 19 124/69 92 Laboratory Results Abnormal lab results 07/04/19 07/04/19 07/05/19 Range/Units 15:42 20:38 01:35 RBC 3.07 L (4.7-6.1) M/uL Hgb 8.5 L 8.3 L 8.5 L (14.0-18.0) g/dL Hct 26.3 L (42-52) % RDW Std Deviation 51.6 H (36.4-46.3) fL RDW Coeff of Mohamud 16.5 H (11.5-14.5) % Immature Gran # (Auto) 0.05 H (0.00-0.02) K/uL Lymph # (Auto) 0.66 L (1.2-3.4) K/uL [place] # (Auto) 0.79 H (0.11-0.59) K/uL Absolute Nucleated RBC 0.02 H (0-0) K/uL Chloride (98-107) mmol/L Glucose (70-99) mg/dl Calcium (8.5-10.1) mg/dl AST (15-37) U/L Total Protein (6.4-8.2) gm/dl Albumin (3.4-5.0) gm/dl Albumin/Globulin Ratio (0.9-2) Procalcitonin (0-0.5) ng/ml 07/05/19 07/05/19 Range/Units 01:35 09:08 RBC (4.7-6.1) M/uL Hgb (14.0-18.0) g/dL Hct (42-52) % RDW Std Deviation (36.4-46.3) fL RDW Coeff of Mohamud (11.5-14.5) % Immature Gran # (Auto) (0.00-0.02) K/uL Lymph # (Auto) (1.2-3.4) K/uL [place] # (Auto) (0.11-0.59) K/uL Absolute Nucleated RBC (0-0) K/uL Chloride 108 H (98-107) mmol/L Glucose 108 H (70-99) mg/dl Calcium 8.3 L (8.5-10.1) mg/dl AST 53 H (15-37) U/L Total Protein 5.8 L (6.4-8.2) gm/dl Albumin 2.2 L (3.4-5.0) gm/dl Albumin/Globulin Ratio 0.6 L (0.9-2) Procalcitonin 0.57 H (0-0.5) ng/ml (1) Recurrent renal cell carcinoma of kidney Laterality: unspecified laterality Qualified Code(s): C64.9 - Malignant neoplasm of unspecified kidney, except renal pelvis
[2019-07-05] MEDS: TAMSULOSIN HCL 0.4 MG CAP PO SCH (20:17)
[2019-07-05] MEDS: DOXYCYCLINE HYCLATE 100 MG CAP PO SCH (20:18)
[2019-07-06 08:16] LABS: Basophils # (auto) 0.03 K/uL (0-0.2); Basophils % (auto) 0.4 %; Eosinophils # (auto) 0.22 K/uL (0-0.5); Eosinophils % (auto) 2.7 %; Hematocrit (blood only) 25.5 % (42-52); Hemoglobin 8.3 g/dL (14.0-18.0); Immature Granulocytes # (auto) 0.06 K/uL (0.00-0.02); Immature Granulocytes % (auto) 0.7 %; Lymphocytes # (auto) 0.53 K/uL (1.2-3.4); Lymphocytes % (auto) 6.6 %; Mean Corpuscular Hemoglobin 28.1 pg (25-34); Mean Corpuscular Hgb Conc 32.5 g/dL (32-36); Mean Corpuscular Volume 86.4 fL (80-100); Mean Platelet Volume 8.7 fL (7.4-10.4); Monocytes # (auto) 0.72 K/uL (0.11-0.59); Monocytes % (auto) 8.9 %; Neutrophils # (auto) 6.49 K/uL (1.4-6.5); Neutrophils % (auto) 80.7 %; Platelet Count 161 K/uL (130-400); RDW Coefficient of Variation 16.8 % (11.5-14.5); RDW Standard Deviation 53.2 fL (36.4-46.3); Red Blood Count 2.95 M/uL (4.7-6.1); White Blood Count 8.05 K/uL (4.8-10.8)
[2019-07-06] MEDS ORDERED: BISACODYL 10 MG SUPP PR ONE (08:23)
[2019-07-06] MEDS: AMLODIPINE BESYLATE 5 MG TAB PO SCH (08:26)
[2019-07-06] MEDS: METOPROLOL TARTRATE 50 MG TAB PO SCH (08:26)
[2019-07-06] MEDS: MoRPHine SULFATE CR 15 MG TABCR PO SCH ×3 (08:26→16:12)
[2019-07-06] MEDS: DUTASTERIDE ~ ORDER AWAITING ACTION SCH (08:26)
[2019-07-06] MEDS: DOXYCYCLINE HYCLATE 100 MG CAP PO SCH (08:27)
[2019-07-06 08:46] LABS: Albumin Level 2.2 gm/dl (3.4-5.0); BUN Creatinine Ratio 12.9 (10-20); Calcium 8.7 mg/dl (8.5-10.1); Creatinine Clr Calc Pharmacy 58.9 ml/min; Est GFR (African American) 64.6; Est GFR (Non-African American) 55.8; Magnesium 1.7 mg/dl (1.8-2.4); Potassium 3.9 mmol/L (3.5-5.1); Uric Acid 6.9 mg/dl (2.6-7.2)
[2019-07-06 08:49] LABS: Albumin Globulin Ratio 0.6 (0.9-2); Bilirubin,Total 0.6 mg/dl (0.2-1); Globulin 3.7 gm/dl (2.5-4.0); Phosphorus 3.3 mg/dl (2.5-4.9); Total Protein 5.9 gm/dl (6.4-8.2)
[2019-07-06] MEDS ORDERED: POLYETHYLENE (MIRALAX) 17 GM PACK PO SCH (09:00)
[2019-07-06] MEDS: DOCUSATE SODIUM/SENNA 50/8.6MG TAB PO SCH (09:09)
[2019-07-06] MEDS ORDERED: MAGNESIUM SULFATE / D5W 1 GM/100 ML BAG IV ONE (09:10)
[2019-07-06] MEDS ORDERED: MoRPHine SULFATE CR 15 MG TABCR PO SCH (14:00)
--- NOTE | 2019-07-06 14:21 | Hematology/Oncology Prog Note ---
Date of Service July 06, 2019 Assessment & Plan (1) Recurrent renal cell carcinoma of kidney: Mr. Sterling's biposy results are pending, though the initial adequacy review clearly showed malignant cells. 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 As a result, I suspect that is the direction we will take. I will make these arrangements as an outpatient. Present on Admission?: Yes (2) Anemia: I am less clear how to explain his anemia. The tumors on his CT are definitely not hematomas, but some of them have changes that appear hemorrhagic, so he may have bled intra-tumorally. He has no evidence of gross blood loss anywhere and has no exam findings to suggest, for instance, intraperitoneal bleeding. He may have some component of anemia of malignancy. Also, he has a few nucleated RBCs in his peripheral blood, suggesting possible marrow disease, though this finding can also be seen in patients with high red cell turnover. His hemoglobin has remained stable since the transfusion, further supporting the idea that he's not actively bleeding. I can continue a workup for the anemia as an outpatient. Present on Admission?: Yes (3) Constipation due to opioid therapy: He is very constpated from his opiates. He is not vomiting and is passing flatus, so I don't think he is obstructed. I would consider increasing the frequency of the Miralax. Other options could include lactulose or magnesium citrate. It would be good for him to have a bowel movement prior to discharge. We also will need to send him home with laxatives, whichever are finally effective. Present on Admission?: Yes Subjective Mr. Sterling is seated comfortably in a chair. He looks well but feels bloated. He's been trying a variety of stool softeners and laxatives and tried a suppository earlier that was unsuccessful. He denies any nausea or vomiting and is passing flatus. His pain is improved with the narcotics. He denies any bleeding anywhere. He also has no shortness of breath or chest pain. Review of Systems Review of Systems: See HPI for pertinent positives and negatives Physical Exam Constitutional: comfortable; no acute distress Eyes: + anicteric sclerae ENMT: external ear and nose normal, oropharynx normal Respiratory: normal respiratory effort, lungs clear to auscultation Cardiovascular: RRR, no murmur, no edema Gastrointestinal (Abdomen): Inspection/Auscultation: + abdomen distended and normal bowel sounds Percussion/Palpation: + abdominal mass (large, easily palpable mass in his left abdomen); abdomen nontender and no guarding Psychiatric: Orientation: alert and oriented x 3 Affect: + anxious affect Lymphatic: no cervical or axillary lymphadenopathy Results & Data Vital Signs (Past 12 Hours) Vital Signs Temp Pulse Resp BP Pulse Ox 07/06/19 11:04 36.8 C 83 20 129/73 93 07/06/19 07:31 36.7 C 87 16 140/70 91 07/06/19 04:00 36.9 C 80 18 132/72 93 (1) Recurrent renal cell carcinoma of kidney Laterality: unspecified laterality Qualified Code(s): C64.9 - Malignant neoplasm of unspecified kidney, except renal pelvis
--- NOTE | 2019-07-06 14:42 | Discharge Summary ---
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 Arora urologist. 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 Went to see his primary care physician for surveillance CT of the abdomen and pelvis yesterday and CT showed interval left nephrectomy with evidence of tumor recurrence. Multiple bilateral pulmonary nodules indicative of metastatic disease. 12 cm mass within the left nephrectomy bed with the left psoas invasion consistent with tumor recurrence. Multiple peritoneal and extraperitoneal masses consistent with metastatic disease the largest is a 20 cm mass with the anterior abdomen. Left para-aortic lymphadenopathy. Patient denies fever, chills, chest pain, shortness of breath, abdominal pain, frequency, urgency. Patient complains of lower back pain. Are reviewed which shows elevated white blood cell count of 15.28, hemoglobin of 8.5, hematocrit of 25.7, platelets of 232, sodium 137, potassium 4.1, chloride 100, BUN 26, creatinine 1.9, GFR 37.2, AST 41, ALT 36, prostate-specific antigen 2.09, lipase 108. And is cloudy with trace blood. Decision was made to admit patient for metastatic renal cell carcinoma to [facility] and further management and treatment as necessary. Principal Diagnosis metastatic renal cell carcinoma Discharge Exam Constitutional WD/WN, vitals as above Respiratory normal respiratory effort, lungs clear to auscultation Cardiovascular RRR, no murmur, no edema Gastrointestinal (Abdomen) Inspection/Auscultation: + abdomen distended Percussion/Palpation: + abdomen firm; abdomen nontender and no guarding Musculoskeletal no cyanosis or clubbing, extremities motor strength 5/5 Skin no rashes, warm and dry Neurologic moves all extremities and awake Psychiatric A+Ox3, euthymic affect Discharge Data Allergies Allergy/AdvReac Type Severity Reaction Status Date / Time No Known Allergies Allergy Verified 07/02/19 10:57 Consultations 07/02/19 10:59 ED Decision to Admit Stat 07/02/19 13:12 Consult Oncology Routine 07/02/19 14:59 Consult Urology Routine 07/03/19 15:12 Consult Palliative Care Routine 07/05/19 08:37 Consult [facility] top polisher Routine Ordered Studies 07/03/19 13:49 CT chest wo con Routine 07/04/19 08:00 CT limited or localized study Routine 07/04/19 10:54 CT guided FNA 1st lesion Routine Hospital Course (1) Metastatic renal cell carcinoma: Mr. Sterling had a CT performed outpatient for increasing back and abdominal pain prior to admission showing recurrence of tumors. Previously he had a very large renal cell tumor and nephrectomy in April. On CT: 1. Interval left nephrectomy with evidence of tumor recurrence 2. Multiple bilateral pulmonary nodules indicative of metastatic disease 3. 12 cm mass within the left nephrectomy bed with left psoas invasion consistent with tumor recurrence 4. Multiple peritoneal and extraperitoneal masses consistent with metastatic disease. The largest is a 20 cm mass within the anterior abdomen 5. Left para-aortic lymphadenopathy Consulted hematology oncology Dr. Conway Consulted urology Dr. Arora Continue pain management Continue doxycycline - chest CT equivocal for small area of consolidation/inflammation - procalcitonin trending down, leukocytosis resolved CT chest also showed pulmonary nodules in all five lobes Biopsy 07/04 - will follow up outpatient with Dr. Conway (2) Cancer related pain: Pain is in abdomen and back Started on MS Contin yesterday - will increase per palliative recommendations to 45 mg bid, 30 mg midday and when controlled, will use 5 mg po oxycodone for breakthrough Has not required IV dilaudid in 24 hours Will follow up with Dr. Espitia outpatient (3) Anemia: Acute blood loss anemia secondary to bleeding within tumors as seen on CT and anemia of malignancy hgb 6.4 on admission - given 2 units PRBCs - hgb improved and has stabilized over the last couple of days Will follow with Dr. 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 PSA 2.09 normal (8) Hypertension: Stable Continue home medicine, metoprolol tartrate 50 mg p.o. twice daily and amlodipine 5 mg p.o. every morning. Blood pressure stable now. Continue monitoring. (9) DVT prophylaxis: Held chemoprophylaxis for bleeding, SCDs and ambulation Total Time Total Time Spent Total Time Spent (In Minutes): greater than 30 minutes Discharge Plan Discharge Items Patient Disposition: Home - Self-Care Reason For Visit: METASTATIC RENAL CELL CARCINOMA Discharge Diagnosis: Metastatic renal cell carcinoma Activity: Resume your previous activity Non-emergency contact: Primary Care Provider and Oncologist Call non-emergency contact if: you have any medication questions, your symptoms worsen, your pain is not controlled, your pain is worsening and you have a fever Follow-up/Referrals: Ney Hand CRNP [Primary Care Provider] - 07/10/19 1:00 pm (Please, follow up at ZAIDA Hand's office with his associate, Kimmie Oh PA-C, on July 10 at 1:00 pm. *If you need to change this appointment, call their office at [phone].) Burak Conway [Physician] - 07/11/19 3:10 pm (Please, follow up with Dr. Conway on SundayJuly 11 at 3:10 pm. *If you need to change this appointment, call the office at [phone].) Diet: Regular Addtl Attending Provider Instructions: (1) Metastatic renal cell carcinoma: You will continue taking medications to control your pain. I will have the nurse navigator call you with an appointment to see Dr. Espitia from palliative care for pain management A biopsy was taken on 07/03. You will follow up with these results with Dr. Conway on 07/11 - Your medication regimen is MS Contin (morphine) 45 mg morning and evening and 30 mg in the afternoon (morphine every 8 hours). You can take the oxycodone for breakthrough pain. You can also take Tylenol as needed. You should avoid non steroidal anti-inflammatories (NSAIDs) such as naproxen and ibuprofen (2) Anemia: You received 2 units of packed red blood cells for a hemoglobin of 6.4 on admission. Since then your hemoglobin has stabilized. Your CT scan showed some possible bleeding within the tumors. Dr. Conway will continue any workup for anemia outpatient - Take iron every other day to help restore your blood count (3) Constipation The narcotics you are taking can cause constipation - take docusate/sennoside morning and night and Miralax daily. You should aim to have a bowel movement every day or every other day. Please call your doctor if you go longer than 2 days without a bowel movement. (4) Pneumonia Your chest CT was equivocal for a small area of consolidation/inflammation which could indicate a small pneumonia - Continue doxycycline for two more doses Pending Studies at Discharge: Yes Studies:: biopsy Stand-Alone Forms: [facility], Smoking Cessation Medications and DC Order Prescriptions: New doxycycline hyclate 100 mg Capsule 100 mg PO BID Qty: 2 RF: 0 ferrous sulfate 325 mg (65 mg iron) Tablet,Delayed Release (Dr/Ec) 325 mg PO Q2D@0700 Qty: 30 RF: 0 sennosides-docusate sodium [Senokot-S] 8.6-50 mg Tablet 1 tab PO BID Qty: 30 RF: 0 polyethylene glycol 3350 [Miralax] 17 gram Powder In Packet 17 g PO DAILY Qty: 30 RF: 0 morphine 15 mg tablet extended release 15 mg PO Q8H Qty: 120 RF: 0 oxycodone 5 mg tablet 5 mg PO Q6H PRN (Reason: pain) Qty: 30 RF: 0 Continued dutasteride 0.5 mg capsule 0.5 mg PO DAILY Qty: 90 RF: 3 amlodipine 5 mg tablet 5 mg PO QAM Qty: 30 RF: 5 metoprolol tartrate 50 mg tablet 50 mg PO BID Qty: 60 RF: 5 tamsulosin 0.4 mg capsule 0.4 mg PO QPM Qty: 30 RF: 5 Discharge Orders: Discharge Order (Routine); Ordered 07/06/19 Ordered By: Christelle Guzman Admission Data Admit Date/Time: 07/02/19 13:09 Attending Provider: Selwyn Morales Admit Provider: Jeanne Lane Primary Care Provider: Ney Hand Other Providers: Burak Conway ; Atif Arora ; Selwyn Morales ; Angelina Espitia Other Interventions: Discharge Summary Assessment (RN) Last Done: 07/06/19 15:40 DC Date/Time DO NOT enter until pt leaves facility: 12/01/19 16:32 Supervising Physician Co-Signing Physician Notes I supervised Christelle Guzman NP on this patient's care. I examined the patient today independently of her. I discussed the plan of care with her with the plan being as written in her note except for any following changes/exceptions: None. Less pain today. Wants to go home. Able to ambulate easily and having BMs.
[2019-07-07] MEDS ORDERED: FERROUS SULFATE 325 MG TAB PO SCH (07:00)
== END 2019-07-06 16:32 | disposition home or self-care (01) | DRG 374 ==
LOC: ED 09:15 → 4W 12:51 → SUATTDRO 13:09 → 4W 13:09
DX: Z90.5 Acquired absence of kidney; D62 Acute posthemorrhagic anemia; C79.89 Secondary malignant neoplasm of other specified sites; R10.9 Unspecified abdominal pain; Z79.899 Other long term (current) drug therapy; T40.2X5A Adverse effect of other opioids, initial encounter; J18.9 Pneumonia, unspecified organism; Z51.81 Encounter for therapeutic drug level monitoring; C78.6 Secondary malignant neoplasm of retroperitoneum and peritoneum; N17.9 Acute kidney failure, unspecified; K59.03 Drug induced constipation; C78.00 Secondary malignant neoplasm of unspecified lung; C64.2 Malignant neoplasm of left kidney, except renal pelvis; D72.829 Elevated white blood cell count, unspecified; N40.0 Benign prostatic hyperplasia without lower urinary tract symptoms; M54.5 Low back pain; R59.0 Localized enlarged lymph nodes; G89.3 Neoplasm related pain (acute) (chronic); I10 Essential (primary) hypertension; D63.0 Anemia in neoplastic disease

== ENCOUNTER 2019-07-21 15:06 | Inpatient (IN) ==
[2019-07-21] MEDS ORDERED: fentaNYL citrate 100 MCG/2 ML VIAL IV ONE (15:39)
[2019-07-21] MEDS ORDERED: ONDANSETRON INJ 2 MG/ML 2 ML VIAL IV STA (15:39)
[2019-07-21] MEDS ORDERED: SODIUM CHLORIDE 0.9% 500 ML IV SCH (15:45)
--- NOTE | 2019-07-21 15:56 | XRay Report ---
XR chest 1V portable CLINICAL HISTORY: 64 years-old Male presenting with weakness, known diffuse metastatic disease. TECHNIQUE: Portable semiupright AP view of the chest was obtained. COMPARISON: 07/03/2019. FINDINGS: Cardiomediastinal silhouette normal. Minimal basilar opacities. No pleural effusion or pneumothorax. Redemonstration of multifocal nodular opacities. Osseous structures normal. Upper abdomen normal. IMPRESSION: 1. Minimal basilar opacities likely atelectasis or scarring. This is new from prior. 2. Redemonstration of multifocal nodular opacities consistent with known underlying metastatic disea se. Electronically signed by: Vinicio Rowland M.D. 07/21/2019 3:55 PM
[2019-07-21 16:10] LABS: Albumin Level 2.1 gm/dl (3.4-5.0); BUN Creatinine Ratio 15.5 (10-20); Calcium 8.8 mg/dl (8.5-10.1); Creatinine Clr Calc Pharmacy 44.6 ml/min; Est GFR (African American) 45.1; Est GFR (Non-African American) 38.9; Potassium 4.2 mmol/L (3.5-5.1)
[2019-07-21 16:13] LABS: Albumin Globulin Ratio 0.5 (0.9-2); Basophils # (auto) 0.02 K/uL (0-0.2); Basophils % (auto) 0.1 %; Bilirubin,Total 0.8 mg/dl (0.2-1); Eosinophils # (auto) 0.06 K/uL (0-0.5); Eosinophils % (auto) 0.4 %; Globulin 4.3 gm/dl (2.5-4.0); Hematocrit (blood only) 28.2 % (42-52); Hemoglobin 8.6 g/dL (14.0-18.0); Immature Granulocytes # (auto) 0.19 K/uL (0.00-0.02); Immature Granulocytes % (auto) 1.3 %; Lymphocytes # (auto) 0.83 K/uL (1.2-3.4); Lymphocytes % (auto) 5.5 %; Mean Corpuscular Hemoglobin 26.2 pg (25-34); Mean Corpuscular Hgb Conc 30.5 g/dL (32-36); Mean Platelet Volume 9.8 fL (7.4-10.4); Monocytes # (auto) 1.17 K/uL (0.11-0.59); Monocytes % (auto) 7.8 %; Neutrophils # (auto) 12.77 K/uL (1.4-6.5); Neutrophils % (auto) 84.9 %; Nucleated RBC # (auto) 0.04 K/uL (0-0); Nucleated RBC % (auto) 0.3 %; Platelet Count 215 K/uL (130-400); RDW Coefficient of Variation 17.2 % (11.5-14.5); RDW Standard Deviation 53.7 fL (36.4-46.3); Red Blood Count 3.28 M/uL (4.7-6.1); Total Protein 6.4 gm/dl (6.4-8.2); White Blood Count 15.04 K/uL (4.8-10.8)
[2019-07-21 16:21] LABS: INR 1.2 (0.9-1.1); Prothrombin Time 12.2 Seconds (9.0-12.0)
--- NOTE | 2019-07-21 16:36 | CT Scan Report ---
HEAD CT NONCONTRAST CT DOSE: 537.48 mGy.cm HISTORY: hallucinations eval for mets TECHNIQUE: Multiaxial CT images of the head were performed without the use of intravenous contrast. A utomated exposure control was utilized for this study. A dose lowering technique was utilized adheri ng to the principles of ALARA. Comparison: None. Findings: Trace fluid within the left sphenoid sinus. The calvarium and skull base are intact. The ve ntricles and sulci are within normal limits. There is no mass, hematoma, midline shift, or acute infa rct. Impression: No acute intracranial abnormality. Trace fluid within the left sphenoid sinus. Electronically signed by: Pranav Wilkinson M.D. 07/21/2019 4:35 PM
--- NOTE | 2019-07-21 16:43 | CT Scan Report ---
CT abd pelvis wo con CLINICAL HISTORY: 64 years-old Male presenting with left abd pain eval for obstruction. TECHNIQUE: Multidetector CT of the abdomen and pelvis was performed without the use of intravenous co ntrast. IV contrast: None. One or more dose lowering techniques were used consistent with the princip les of ALARA (as low as reasonably achievable), including automatic exposure control, mA or kV adjust ment to individual patient size, and/or use of iterative reconstruction. COMPARISON: 07/01/2019. CT DOSE (mGy.cm): The estimated cumulative dose is 472.60 mGy.cm. FINDINGS: Reference Assistant topogram: Distended abdomen. Lung bases: The interventricular blood pool is less dense adjacent myocardium consistent with anemia. Mildly enlarged. No pericardial or pleural effusion. Interval increase in size and extent of multiple pulmonary nodules at the lung bases. Liver: Normal morphology. Normal density. Biliary: No gross biliary ductal dilatation allowing for noncontrast technique. Normal gallbladder. Pancreas: Poorly visualized. Spleen: Normal noncontrast appearance. Adrenal glands: Normal noncontrast appearance. Kidneys and ureters: Evidence of left nephrectomy. Abnormal soft tissue in the operative bed. Bladder: Circumferential bladder wall thickening. Pelvic organs: Prostate enlargement likely secondary to benign prostatic hyperplasia. Bowel: The bowel is poorly evaluated due to noncontrast technique in the extent of peritoneal abnorma lities. No bowel obstruction. Peritoneal cavity: Extensive peritoneal solid masses, which have dramatically increased since the liliana or exam. Small volume of abdominal pelvic ascites is also present. No free intraperitoneal gas. Lymph nodes: Nodular masses along the left periaortic region may represent lymphadenopathy versus met astatic deposits. Vasculature: Normal noncontrast appearance. Abdominal wall: Normal. Musculoskeletal: No destructive osseous lesion. IMPRESSION: 1. Dramatic interval worsening of metastatic disease primarily in the peritoneal cavity with signifi cant interval increase in peritoneal carcinomatosis. Additionally, increased pulmonary metastatic dis ease is evident. 2. Left nephrectomy. 3. Chronic bladder outlet obstruction in the setting of prostatomegaly. Electronically signed by: Vinicio Rowland M.D. 07/21/2019 4:42 PM
[2019-07-21] MEDS ORDERED: HYDROmorphone INJ 0.5 MG/0.5 ML SYR IV STA (16:55)
[2019-07-21 18:01] LABS: Appearance Urine Turbid (Clear); Bacteria Urine Automated Negative (Negative); Blood Urine Negative (Negative); Color Urine Dark Yellow; Epithelial Cell Urine Auto >30 /lpf (0-5); Glucose Urine UA Negative (Negative); Ketones Urine Negative (Negative); Leukocyte Esterase Urine Trace (Negative); Nitrite Urine Negative (Negative); Protein Urine 2+ (Negative); RBC Urine Automated 0-4 /hpf (0-4); Specific Gravity Urine 1.023 (1.000-1.030); Urobilinogen Urine Negative (Negative)
[2019-07-21 18:04] LABS: Bilirubin Urine Negative (Negative); Ictotest Urine Negative (Negative)
--- NOTE | 2019-07-21 19:42 | History & Physical Report ---
Date of Service July 21, 2019 Assessment & Plan (1) Intractable pain: Patient with acute on chronic abdominal pain in setting of progressive metastatic RCC with worsening carcinomatosis. Recently started on chemotherapy on 07/15, hopes that reduction in tumor burden would lead to improvement in abdominal pain. Patient has been seen by Palliative Care service in the past and they have assisted with his opiate management. Was previously prescribed Morphine 15mg po TID and Oxycodone 5mg po q 2 hours as needed for breakthrough. He reports he has not been taking the Morphine as it has been making him feel ill. He has been using the Oxycodone with minimal improvement in symptoms. ER received Fentanyl 50mcg and Dilaudid 0.5mg -Admit to medical floor -Dilaudid 0.5mg IV q 2 hours as needed -Continue Oxycodone 5mg po q 2 hours as needed -Palliative Care consult to assist with opiate management. ?Initiating Methadone for long acting agent -Zofran as needed for nausea -Bowel regimen with Senna, Colace, Miralax and Dulcolax VT as needed. ?initiation of lubiprostone or other agent for OIC Present on Admission?: Yes (2) Constipation due to opioid therapy: Bowel regimen as above -Continue to monitor -LR at 100mL/hr x 2 liters -Check Mg and PO4 and replete as needed Present on Admission?: Yes (3) Metastatic renal cell carcinoma: Patient with diffusely metastatic disease, progressive carcinomatosis. He follows with Heme/Onc. Last chemo treatment was 07/15, next is scheduled for 07/22 -Consider Heme/Onc consultation -Followup as needed Present on Admission?: Yes (4) Leukocytosis: Patient afebrile. Denies fevers/chills/malaise/sweats. No obvious source of infection -Continue to monitor -Repeat CBC in AM Present on Admission?: Yes (5) Anemia: Hgb=8.6, Hct=28.2, improved from prior. No active bleeding -Continue to monitor -Repeat CBC in AM Present on Admission?: Yes (6) CKD (chronic kidney disease): BUN=28, Cr=1.82, slightly higher than prior values of 22 and 1.76, respectively. Patient appears to be slightly dry on clinical exam -LR at 100mL/hr x 2 liters -Repeat chemistry in AM Present on Admission?: Yes (7) Hypertension: Blood pressure stable at present -Continue Amlodipine 5mg po daily -Continue Metoprolol 50mg po BID -Continue to monitor Present on Admission?: Yes (8) Benign prostatic hyperplasia: Patient reports passing urine without difficulty. -Continue Avodart and Flomax at home doses -Continue to monitor I/O's F/E/N - LR at 100mL/hr x 2 liters, monitor electrolytes and replete as needed, regular diet as tolerated Ppx - Lovenox for DVT prophylaxis Code - DNR/DNI per discussion with patient Dispo - Admit to medical floor with continuous pulse oximetry History of Present Illness Chief Complaint: abdominal pain Primary Care Provider: ZAIDA Chaudhari Mr. Sterling is a pleasant 64yo C male with history of metastatic renal cell carcinoma, worsening carcinomatosis presenting with intractable abdominal pain. Pain is located in the lower back and LUQ under his ribs, constant, 8/10 in severity. Also with nausea and constipation. Patient was previously on Morphine 15mg po TID and Oxycodone q 2 hours as needed for breakthrough pain. He has been following with Palliative Care. He recently stopped taking the Morphine because it was making him feel sick. He has been taking Oxycodone 10mg po q 2 hours as needed with minimal relief. Last BM 2-3 days ago. No additional complaints at this time. Recently started on chemotherapy with Nivolumab and Ipilimumab on 07/15. Next treatment is scheduled for 08/01. Possible use of methadone for pain control per last Palliative note 07/10/19. ER Course: Fetanyl, Dilaudid, Zofran, NSS Allergies Allergy/AdvReac Type Severity Reaction Status Date / Time No Known Allergies Allergy Verified 07/21/19 16:05 Home Medications Home Medications Medication Instructions Recorded Confirmed Type amlodipine 5 mg tablet 5 mg PO QAM #30 tab 05/15/19 07/21/19 Rx metoprolol tartrate 50 mg tablet 50 mg PO BID #60 tab 05/15/19 07/21/19 Rx tamsulosin 0.4 mg capsule 0.4 mg PO QPM #30 cap 05/15/19 07/21/19 Rx ferrous sulfate 325 mg PO Q2D@0700 #30 tab 07/06/19 07/21/19 Rx morphine 15 mg PO Q8H #120 tab 07/06/19 07/21/19 Rx polyethylene glycol 3350 [Miralax] 17 g PO DAILY #30 ea 07/06/19 07/21/19 Rx sennosides-docusate sodium 1 tab PO BID #30 tab 07/06/19 07/21/19 Rx [Senokot-S] dutasteride [Avodart] 0.5 mg PO DAILY 07/17/19 07/21/19 History oxycodone 5 mg PO Q2H PRN 07/17/19 07/21/19 History Past Med/Surg History Medical History BPH (benign prostatic hyperplasia) Cancer of kidney Left Kidney and tumors removed. However, tumors have grown back where left kidney was Cancer related pain Chromophobe renal cell carcinoma (Chronic) Hypertension Hypertension (Chronic) Renal neoplasm (Chronic) S/p nephrectomy left nephrectomy Surgical History History of left radical nephrectomy 04/22/2019 Hx of right inguinal hernia repair x2 Social History Preferred Language: [place]au[place] Communication Ability: Effective Creative Technologist Required: No Beliefs That Will Affect Care: None Current Living Situation: Significant Other current occupational status: employed current occupation: [employer] Feels Safe at Home: Yes Smoking Status: Never smoker Second Hand Exposure: No ; Hx Alcohol Use: No Hx Substance Use: No Seatbelt Use: never Review of Systems Review of Systems: +Nausea +Constipation +Abdominal pain Physical Exam Physical Exam: General: patient restless and mildly uncomfortable, NAD, non- toxic in appearance, AA&O x 4 Skin: warm, dry, intact, no rashes or lesions HEENT: NC/AT, PERRL, EOMI, anicteric sclera, conjunctiva without injection, external ear normal to inspection and nontender, nares patent, moist mucus membranes, dentition intact, no oropharyngeal lesions, neck supple, trachea midline, no LAD, no thyromegaly, no JVD Heart: +S1/S2, regular, tachycardic, no m/r/g Lungs: equal air entry bilaterally, no rales/rhonchi/wheezes Abd: marked distention, firm, diffusely tender with no kali ound/guarding/peritoneal signs, +hepatomegaly, tympanic to percussion Ext: warm, 2+ pulses in UE/LE bilaterally, no clubbing/cyanosis or edema Neuro: nonfocal, patient AA&O x 4, speech intact, no facial droop, moving all extremities on command with equal strength 5/5 Results & Data Vital Signs (Past 12 Hours) Vital Signs Temp Pulse Resp BP Pulse Ox 07/21/19 18:36 102 H 16 122/77 92 07/21/19 17:00 101 H 20 119/78 07/21/19 16:30 97 H 19 127/77 92 07/21/19 16:29 97 H 18 127/78 91 07/21/19 16:00 100 H 19 126/81 07/21/19 15:46 111 H 20 94 07/21/19 15:45 102 H 19 118/77 93 07/21/19 15:10 36.8 C 111 H 20 118/78 94 Laboratory Results Lab Results 07/21/19 07/21/19 07/21/19 Range/Units 15:34 15:34 15:34 WBC 15.04 H (4.8-10.8) K/uL RBC 3.28 L (4.7-6.1) M/uL Hgb 8.6 L (14.0-18.0) g/dL Hct 28.2 L (42-52) % MCV 86.0 (80-100) fL MCH 26.2 (25-34) pg MCHC 30.5 L (32-36) g/dL RDW Std Deviation 53.7 H (36.4-46.3) fL RDW Coeff of Mohamud 17.2 H (11.5-14.5) % Plt Count 215 (130-400) K/uL MPV 9.8 (7.4-10.4) fL Immature Gran % (Auto) 1.3 % Neut % (Auto) 84.9 % Lymph % (Auto) 5.5 % [place] % (Auto) 7.8 % Eos % (Auto) 0.4 % Baso % (Auto) 0.1 % Immature Gran # (Auto) 0.19 H (0.00-0.02) K/uL Neut # (Auto) 12.77 H (1.4-6.5) K/uL Lymph # (Auto) 0.83 L (1.2-3.4) K/uL [place] # (Auto) 1.17 H (0.11-0.59) K/uL Eos # (Auto) 0.06 (0-0.5) K/uL Baso # (Auto) 0.02 (0-0.2) K/uL Absolute Nucleated RBC 0.04 H (0-0) K/uL Nucleated RBC % (auto) 0.3 % PT 12.2 H (9.0-12.0) Seconds INR 1.2 H (0.9-1.1) Sodium 137 (136-145) mmol/L Potassium 4.2 (3.5-5.1) mmol/L Chloride 102 (98-107) mmol/L Carbon Dioxide 25 (21-32) mmol/L Anion Gap 10.0 (3-11) BUN 28 H (7-18) mg/dl Creatinine 1.82 H (0.6-1.4) mg/dl Est Cr Clr Drug Dosing 44.6 ml/min Est GFR ( Amer) 45.1 Est GFR (Non-Af Amer) 38.9 BUN/Creatinine Ratio 15.5 (10-20) Glucose 127 H (70-99) mg/dl Calcium 8.8 (8.5-10.1) mg/dl Total Bilirubin 0.8 (0.2-1) mg/dl AST 47 H (15-37) U/L ALT 21 (12-78) U/L Alkaline Phosphatase 103 (45-117) U/L Total Protein 6.4 (6.4-8.2) gm/dl Albumin 2.1 L (3.4-5.0) gm/dl Globulin 4.3 H (2.5-4.0) gm/dl Albumin/Globulin Ratio 0.5 L (0.9-2) Lipase 231 (73-393) U/L Urine Color Urine Appearance (Clear) Urine pH (4.5-7.5) Ur Specific [place] (1.000-1.030) Urine Protein (Negative) Urine Glucose (UA) (Negative) Urine Ketones (Negative) Urine Blood (Negative) Urine Nitrite (Negative) Urine Bilirubin (Negative) Urine Urobilinogen (Negative) Ur Leukocyte Esterase (Negative) Urine WBC (Auto) (0-5) /hpf Urine RBC (Auto) (0-4) /hpf U Hyaline Cast (Auto) (0-5) /lpf U Epithel Cells (Auto) (0-5) /lpf Urine Bacteria (Auto) (Negative) Ur Renal Epithelial Cell Granular Casts (0) /lpf Urine Yeast 07/21/19 Range/Units 17:43 WBC (4.8-10.8) K/uL RBC (4.7-6.1) M/uL Hgb (14.0-18.0) g/dL Hct (42-52) % MCV (80-100) fL MCH (25-34) pg MCHC (32-36) g/dL RDW Std Deviation (36.4-46.3) fL RDW Coeff of Mohamud (11.5-14.5) % Plt Count (130-400) K/uL MPV (7.4-10.4) fL Immature Gran % (Auto) % Neut % (Auto) % Lymph % (Auto) % [place] % (Auto) % Eos % (Auto) % Baso % (Auto) % Immature Gran # (Auto) (0.00-0.02) K/uL Neut # (Auto) (1.4-6.5) K/uL Lymph # (Auto) (1.2-3.4) K/uL [place] # (Auto) (0.11-0.59) K/uL Eos # (Auto) (0-0.5) K/uL Baso # (Auto) (0-0.2) K/uL Absolute Nucleated RBC (0-0) K/uL Nucleated RBC % (auto) % PT (9.0-12.0) Seconds INR (0.9-1.1) Sodium (136-145) mmol/L Potassium (3.5-5.1) mmol/L Chloride (98-107) mmol/L Carbon Dioxide (21-32) mmol/L Anion Gap (3-11) BUN (7-18) mg/dl Creatinine (0.6-1.4) mg/dl Est Cr Clr Drug Dosing ml/min Est GFR ( Amer) Est GFR (Non-Af Amer) BUN/Creatinine Ratio (10-20) Glucose (70-99) mg/dl Calcium (8.5-10.1) mg/dl Total Bilirubin (0.2-1) mg/dl AST (15-37) U/L ALT (12-78) U/L Alkaline Phosphatase (45-117) U/L Total Protein (6.4-8.2) gm/dl Albumin (3.4-5.0) gm/dl Globulin (2.5-4.0) gm/dl Albumin/Globulin Ratio (0.9-2) Lipase (73-393) U/L Urine Color Dark Yellow Urine Appearance Turbid A (Clear) Urine pH 5.0 (4.5-7.5) Ur Specific [place] 1.023 (1.000-1.030) Urine Protein 2+ H (Negative) Urine Glucose (UA) Negative (Negative) Urine Ketones Negative (Negative) Urine Blood Negative (Negative) Urine Nitrite Negative (Negative) Urine Bilirubin Negative (Negative) Urine Urobilinogen Negative (Negative) Ur Leukocyte Esterase Trace H (Negative) Urine WBC (Auto) 5-10 H (0-5) /hpf Urine RBC (Auto) 0-4 (0-4) /hpf U Hyaline Cast (Auto) 10-30 H (0-5) /lpf U Epithel Cells (Auto) >30 H (0-5) /lpf Urine Bacteria (Auto) Negative (Negative) Ur Renal Epithelial Cell Not Reportable Granular Casts 5-10 H (0) /lpf Urine Yeast Not Reportable Diagnostic Findings CT abd pelvis wo con CLINICAL HISTORY: 64 years-old Male presenting with left abd pain eval for obstruction. TECHNIQUE: Multidetector CT of the abdomen and pelvis was performed without the use of intravenous contrast. IV contrast: None. One or more dose lowering techniques were used consistent with the principles of ALARA (as low as reasonably achievable), including automatic exposure control, mA or kV adjustment to individual patient size, and/or use of iterative reconstruction. COMPARISON: 07/01/2019. CT DOSE (mGy.cm): The estimated cumulative dose is 472.60 mGy.cm. FINDINGS: Plate Printer topogram: Distended abdomen. Lung bases: The interventricular blood pool is less dense adjacent myocardium consistent with anemia. Mildly enlarged. No pericardial or pleural effusion. Interval increase in size and extent of multiple pulmonary nodules at the lung bases. Liver: Normal morphology. Normal density. Biliary: No gross biliary ductal dilatation allowing for noncontrast technique. Normal gallbladder. Pancreas: Poorly visualized. Spleen: Normal noncontrast appearance. Adrenal glands: Normal noncontrast appearance. Kidneys and ureters: Evidence of left nephrectomy. Abnormal soft tissue in the operative bed. Bladder: Circumferential bladder wall thickening. Pelvic organs: Prostate enlargement likely secondary to benign prostatic hyperplasia. Bowel: The bowel is poorly evaluated due to noncontrast technique in the extent of peritoneal abnormalities. No bowel obstruction. Peritoneal cavity: Extensive peritoneal solid masses, which have dramatically increased since the prior exam. Small volume of abdominal pelvic ascites is also present. No free intraperitoneal gas. Lymph nodes: Nodular masses along the left periaortic region may represent lymphadenopathy versus metastatic deposits. Vasculature: Normal noncontrast appearance. Abdominal wall: Normal. Musculoskeletal: No destructive osseous lesion. IMPRESSION: 1. Dramatic interval worsening of metastatic disease primarily in the peritoneal cavity with significant interval increase in peritoneal carcinomatosis. Additionally, increased pulmonary metastatic disease is evident. 2. Left nephrectomy. 3. Chronic bladder outlet obstruction in the setting of prostatomegaly. Electronically signed by: Vinicio Rowland M.D. 07/21/2019 4:42 PM Dictated: 07/21/19 1636 Transcribed: 07/21/19 1636 XR chest 1V portable CLINICAL HISTORY: 64 years-old Male presenting with weakness, known diffuse metastatic disease. TECHNIQUE: Portable semiupright AP view of the chest was obtained. COMPARISON: 07/03/2019. FINDINGS: Cardiomediastinal silhouette normal. Minimal basilar opacities. No pleural effusion or pneumothorax. Redemonstration of multifocal nodular opacities. Osseous structures normal. Upper abdomen normal. IMPRESSION: 1. Minimal basilar opacities likely atelectasis or scarring. This is new from prior. 2. Redemonstration of multifocal nodular opacities consistent with known underlying metastatic disease. Electronically signed by: Vinicio Rowland M.D. 07/21/2019 3:55 PM Dictated: 07/21/19 1553 Transcribed: 07/21/[address] DOSE: 537.48 mGy.cm HISTORY: ruddy wilson for [facility] TECHNIQUE: Multiaxial CT images of the head were performed without the use of intravenous contrast. Automated exposure control was utilized for this study. A dose lowering technique was utilized adhering to the principles of ALARA. Comparison: None. Findings: Trace fluid within the left sphenoid sinus. The calvarium and skull base are intact. The ventricles and sulci are within normal limits. There is no mass, hematoma, midline shift, or acute infarct. Impression: No acute intracranial abnormality. Trace fluid within the left sphenoid sinus. Electronically signed by: Pranav Wilkinson M.D. 07/21/2019 4:35 PM Dictated: 07/21/19 1630 Transcribed: 07/21/19 1630 ECG Additional Comments: The study shows sinus tachycardia at 103 BPM, rightward axis, FT=610, QRS=96, SJi=811, no acute ischemic changes Code Status & VTE Plan Code Status DNR/DNI per discussion with patient VTE Prophylaxis Plan VTE Prophylaxis will be ordered: Yes PG Care Time/CCT Total # of Minutes Spent Total Time Spent with Patient: Total time spent is greater than 50% in coordination of care (as documented) at patient's floor/unit and/or counseling patient: (1) Metastatic renal cell carcinoma Laterality: unspecified laterality Qualified Code(s): C64.9 - Malignant neoplasm of unspecified kidney, except renal pelvis (2) Leukocytosis Leukocytosis type: unspecified Qualified Code(s): D72.829 - Elevated white blood cell count, unspecified (3) Anemia Anemia type: unspecified type Qualified Code(s): D64.9 - Anemia, unspecified (4) CKD (chronic kidney disease) Chronic kidney disease stage: unspecified stage Qualified Code(s): N18.9 - Chronic kidney disease, unspecified (5) Hypertension Hypertension type: essential hypertension Qualified Code(s): I10 - Essential (primary) hypertension (6) Benign prostatic hyperplasia Lower urinary tract symptom presence: symptoms absent Qualified Code(s): N40.0 - Benign prostatic hyperplasia without lower urinary tract symptoms
[2019-07-21] MEDS ORDERED: ACETAMINOPHEN 325 MG TAB PO PRN (20:35)
[2019-07-21] MEDS: HYDROmorphone INJ 0.5 MG/0.5 ML SYR IV PRN ×2 (20:50→23:02)
[2019-07-21] MEDS: LACTATED RINGER'S 1,000 ML IV SCH (20:50)
[2019-07-21 20:54] LABS: Magnesium 1.9 mg/dl (1.8-2.4); Phosphorus 4.1 mg/dl (2.5-4.9)
[2019-07-21] MEDS: ONDANSETRON INJ 2 MG/ML 2 ML VIAL IV PRN (21:00)
[2019-07-21] MEDS: DUTASTERIDE 0.5 MG SCH ×2 (21:24→23:17)
--- NOTE | 2019-07-21 21:24 | Emergency Department Note ---
Entered by Jonas Joseph acting as a scribe for History of Present Illness General Chief complaint: Dehydration Stated complaint: REFRRED BY DOCTOR Time Seen by Provider: 07/21/19 15:28 Source: patient History of Present Illness Provider complaint: Abdominal pain Onset (ago): week(s) (1.5) Location: abdomen Severity: similar to prior episodes Pain Consistency: + constant and + other (Worsening) Maximum Pain Intensity: 8 Current Pain Intensity: 8 Quality: + other (Pressure) Relieved By: + none Associated symptoms: no fever/chills and no nausea/vomiting The patient is a 64 year old male who presents to the Emergency Room with complaints of generalized abdominal pain that has been constant for the past couple of months but became acute worse about a week and a half ago. The patient rates the pain as an 8/10 and notes nothing helps relieve. The patient describes the pain as a worsening pressure. The patient reports a history of renal cell carcinoma which required him to have a left sided nephrectomy 10 weeks ago. The patient states that about 4 weeks after the procedure he developed abdominal pain that prompted another scan which showed the cancer had metastasized through out his abdomen. The patient reports that he was initially prescribed Morphine for pain, however he has since switched to taking Oxycodone. He states that he does not take his morphine because it makes him too nauseous and he cannot eat or drink anything. He is using medical marijuana to help with the nausea and appetite with some success. He mentioned that he is taking laxatives with the pain medication, however it has been 2 days since he last moved his bowels. Additionally the patient mentioned that he has been acting out the activities in his dreams while he sleeps as well as having momentary visual hallucinations while being awake. The patient explains that he has had episodes where he thinks a mouse ran across the floor but it had not. The patient denies any nausea, vomiting, or urinary symptom. He denies any headache or any stroke symptoms. Home Medications Home Medications Medication Instructions Recorded Confirmed Type amlodipine 5 mg tablet 5 mg PO QAM #30 tab 05/15/19 07/21/19 Rx metoprolol tartrate 50 mg tablet 50 mg PO BID #60 tab 05/15/19 07/21/19 Rx tamsulosin 0.4 mg capsule 0.4 mg PO QPM #30 cap 10/10/19 12/16/19 Rx ferrous sulfate 325 mg PO Q2D@0700 #30 tab 07/06/19 07/21/19 Rx morphine 15 mg PO Q8H #120 tab 07/06/19 07/21/19 Rx polyethylene glycol 3350 [Miralax] 17 g PO DAILY #30 ea 07/06/19 07/21/19 Rx sennosides-docusate sodium 1 tab PO BID #30 tab 07/06/19 07/21/19 Rx [Senokot-S] dutasteride [Avodart] 0.5 mg PO DAILY 07/17/19 07/21/19 History oxycodone 5 mg PO Q2H PRN 07/17/19 07/21/19 History Allergies Allergy/AdvReac Type Severity Reaction Status Date / Time No Known Allergies Allergy Verified 07/21/19 16:05 Past Med/Surg History Medical History BPH (benign prostatic hyperplasia) Cancer of kidney Left Kidney and tumors removed. However, tumors have grown back where left kidney was Cancer related pain Chromophobe renal cell carcinoma (Chronic) Hypertension Hypertension (Chronic) Renal neoplasm (Chronic) S/p nephrectomy left nephrectomy Surgical History History of left radical nephrectomy 04/22/2019 Hx of right inguinal hernia repair x2 Social History Preferred Language: Dominican Communication Ability: Effective Clothing Consultant Required: No Beliefs That Will Affect Care: None Current Living Situation: Significant Other current occupational status: employed current occupation: [employer] Feels Safe at Home: Yes Smoking Status: Never smoker Second Hand Exposure: No ; Hx Alcohol Use: No Hx Substance Use: No Seatbelt Use: never Review of Systems See HPI for pertinent positives & negatives. and A total of 10 systems reviewed and were otherwise negative Physical Exam Vital Signs Vital Signs - 24 hr 07/21/19 15:10 07/21/19 15:45 07/21/19 15:46 Temperature 36.8 C Temperature Source Oral Pulse Rate 111 H 102 H 111 H Pulse Rate from SpO2 Sensor 103 H Respiratory Rate 20 19 20 Respiratory Effort / Characteristics Non-Labored Respiratory Depth Normal Blood Pressure 118/78 118/77 Blood Pressure Mean 91 86 Pulse Oximetry 94 93 94 Oxygen Delivery Method Room Air Room Air Sepsis Action Taken by Nursing No Action Required 07/21/19 16:00 07/21/19 16:29 07/21/19 16:30 Temperature Temperature Source Pulse Rate 100 H 97 H 97 H Pulse Rate from SpO2 Sensor 97 H 98 H Respiratory Rate 19 18 19 Respiratory Effort / Characteristics Respiratory Depth Blood Pressure 126/81 127/78 127/77 Blood Pressure Mean 89 84 92 Pulse Oximetry 91 92 Oxygen Delivery Method Sepsis Action Taken by Nursing 07/21/19 17:00 07/21/19 18:36 Temperature Temperature Source Pulse Rate 101 H 102 H Pulse Rate from SpO2 Sensor 103 H Respiratory Rate 20 16 Respiratory Effort / Characteristics Respiratory Depth Blood Pressure 119/78 122/77 Blood Pressure Mean 88 88 Pulse Oximetry 92 Oxygen Delivery Method Room Air Sepsis Action Taken by Nursing Constitutional: Vital signs reviewed. Eyes: Pupils are equal round reactive to light. Conjunctiva are noninjected. ENT: Pharynx is clear without erythema or exudate. Mucous membranes are moist. Neck supple without meningeal signs. Respiratory: Clear to auscultation bilaterally. Breath sounds are equal bilaterally. Cardiovascular: Regular rate and rhythm. No rubs or gallops. GI: Distended, tense, slightly tender on the left side. Bowel sounds are present. Musculoskeletal: No peripheral edema. No lower extremity tenderness. Integumentary: No cyanosis. Neurological: The patient is awake and alert. No focal deficits. Psychiatric: Normal affect. Course Course 1533: Past medical records reviewed. The patient was evaluated in room C09, and a complete history and physical examination were performed. 1651: I reevaluated the patient and he is still having significant pain. We also reviewed the test results. 1710: I spoke to Dr. Zoraida Chun about the patient's case. He states that the patient has really aggressive cancer and he just recently started therapy so I can admit him for pain control. 1717: I spoke to the patient and his at bedside about Dr. Reeder recommendations. They both agreed with the plan. 1730: I spoke to Dr. Hernandes - [facility] Hospitalist about the patient's case. He agreed to accept the patient for further evaluation. Consultations Consultation #1: I spoke to Dr. Zoraida Chun about the patient's case. He states that the patient has really aggressive cancer and he just recently started therapy so I can admit him for pain control. Time: 17:10 Consultation #2: I spoke to Dr. Hernandes - [facility] Hospitalist about the patient's case. He agreed to accept the patient for further evaluation. Time: 17:30 Administered Medications Miscellaneous (Order Awaiting Action) 1 ea N/A QS SONNY Stop: 08/20/19 20:59 Last Admin: 07/21/19 21:24 Dose: Not Given Documented by: [id number] Discontinued Medications Fentanyl Citrate (Fentanyl Citrate) 50 mcg IV NOW ONE Stop: 07/21/19 15:40 Last Admin: 07/21/19 15:54 Dose: 50 mcg Documented by: [id number] Hydromorphone HCl (Dilaudid) 0.5 mg IV NOW STA Stop: 07/21/19 16:56 Last Admin: 07/21/19 17:03 Dose: 0.5 mg Documented by: [id number] Sodium Chloride (Nss) 500 mls @ 999 mls/hr IV .Q31M SONNY Stop: 07/21/19 16:15 Last Infusion: 07/21/19 16:34 Dose: 0 mls/hr Documented by: [id number] Admin: 07/21/19 15:54 Dose: 999 mls/hr Documented by: [id number] Ondansetron HCl (Zofran) 4 mg IV NOW STA Stop: 07/21/19 15:40 Last Admin: 07/21/19 15:54 Dose: 4 mg Documented by: [id number] Medical Decision Making Differential Diagnosis Differential Diagnosis includes: Metastatic renal cancer, bowel obstruction, constipation, chronic pain syndrome, ascites, and brain mets, amongst others. Medical Records Attestation: I reviewed the patient's medical records. I did perform a limited focused review of portions of the patient's old chart on the electronic medical record. The patient was admitted on July 02 for renal cell carcinoma with metastases. He was anemic and was transfused 2 units of blood at this time. He also had possible pneumonia and was placed on Doxy. Home Medications Current Medication List: was personally reviewed by me Laboratory Data Attestation: I reviewed the patient's lab results. Result diagrams: 07/21/19 15:34 07/21/19 15:34 Lab Results 07/21/19 07/21/19 07/21/19 Range/Units 15:34 15:34 15:34 WBC 15.04 H (4.8-10.8) K/uL RBC 3.28 L (4.7-6.1) M/uL Hgb 8.6 L (14.0-18.0) g/dL Hct 28.2 L (42-52) % MCV 86.0 (80-100) fL MCH 26.2 (25-34) pg MCHC 30.5 L (32-36) g/dL RDW Std Deviation 53.7 H (36.4-46.3) fL RDW Coeff of Mohamud 17.2 H (11.5-14.5) % Plt Count 215 (130-400) K/uL MPV 9.8 (7.4-10.4) fL Immature Gran % (Auto) 1.3 % Neut % (Auto) 84.9 % Lymph % (Auto) 5.5 % Rankin % (Auto) 7.8 % Eos % (Auto) 0.4 % Baso % (Auto) 0.1 % Immature Gran # (Auto) 0.19 H (0.00-0.02) K/uL Neut # (Auto) 12.77 H (1.4-6.5) K/uL Lymph # (Auto) 0.83 L (1.2-3.4) K/uL Rankin # (Auto) 1.17 H (0.11-0.59) K/uL Eos # (Auto) 0.06 (0-0.5) K/uL Baso # (Auto) 0.02 (0-0.2) K/uL Absolute Nucleated RBC 0.04 H (0-0) K/uL Nucleated RBC % (auto) 0.3 % PT 12.2 H (9.0-12.0) Seconds INR 1.2 H (0.9-1.1) Sodium 137 (136-145) mmol/L Potassium 4.2 (3.5-5.1) mmol/L Chloride 102 (98-107) mmol/L Carbon Dioxide 25 (21-32) mmol/L Anion Gap 10.0 (3-11) BUN 28 H (7-18) mg/dl Creatinine 1.82 H (0.6-1.4) mg/dl Est Cr Clr Drug Dosing 44.6 ml/min Est GFR ( Amer) 45.1 Est GFR (Non-Af Amer) 38.9 BUN/Creatinine Ratio 15.5 (10-20) Glucose 127 H (70-99) mg/dl Calcium 8.8 (8.5-10.1) mg/dl Phosphorus 4.1 (2.5-4.9) mg/dl Magnesium 1.9 (1.8-2.4) mg/dl Total Bilirubin 0.8 (0.2-1) mg/dl AST 47 H (15-37) U/L ALT 21 (12-78) U/L Alkaline Phosphatase 103 (45-117) U/L Total Protein 6.4 (6.4-8.2) gm/dl Albumin 2.1 L (3.4-5.0) gm/dl Globulin 4.3 H (2.5-4.0) gm/dl Albumin/Globulin Ratio 0.5 L (0.9-2) Lipase 231 (73-393) U/L Urine Color Urine Appearance (Clear) Urine pH (4.5-7.5) Ur Specific [place] (1.000-1.030) Urine Protein (Negative) Urine Glucose (UA) (Negative) Urine Ketones (Negative) Urine Blood (Negative) Urine Nitrite (Negative) Urine Bilirubin (Negative) Urine Urobilinogen (Negative) Ur Leukocyte Esterase (Negative) Urine WBC (Auto) (0-5) /hpf Urine RBC (Auto) (0-4) /hpf U Hyaline Cast (Auto) (0-5) /lpf U Epithel Cells (Auto) (0-5) /lpf Urine Bacteria (Auto) (Negative) Ur Renal Epithelial Cell Granular Casts (0) /lpf Urine Yeast 07/21/19 Range/Units 17:43 WBC (4.8-10.8) K/uL RBC (4.7-6.1) M/uL Hgb (14.0-18.0) g/dL Hct (42-52) % MCV (80-100) fL MCH (25-34) pg MCHC (32-36) g/dL RDW Std Deviation (36.4-46.3) fL RDW Coeff of Mohamud (11.5-14.5) % Plt Count (130-400) K/uL MPV (7.4-10.4) fL Immature Gran % (Auto) % Neut % (Auto) % Lymph % (Auto) % Rankin % (Auto) % Eos % (Auto) % Baso % (Auto) % Immature Gran # (Auto) (0.00-0.02) K/uL Neut # (Auto) (1.4-6.5) K/uL Lymph # (Auto) (1.2-3.4) K/uL Rankin # (Auto) (0.11-0.59) K/uL Eos # (Auto) (0-0.5) K/uL Baso # (Auto) (0-0.2) K/uL Absolute Nucleated RBC (0-0) K/uL Nucleated RBC % (auto) % PT (9.0-12.0) Seconds INR (0.9-1.1) Sodium (136-145) mmol/L Potassium (3.5-5.1) mmol/L Chloride (98-107) mmol/L Carbon Dioxide (21-32) mmol/L Anion Gap (3-11) BUN (7-18) mg/dl Creatinine (0.6-1.4) mg/dl Est Cr Clr Drug Dosing ml/min Est GFR ( Amer) Est GFR (Non-Af Amer) BUN/Creatinine Ratio (10-20) Glucose (70-99) mg/dl Calcium (8.5-10.1) mg/dl Phosphorus (2.5-4.9) mg/dl Magnesium (1.8-2.4) mg/dl Total Bilirubin (0.2-1) mg/dl AST (15-37) U/L ALT (12-78) U/L Alkaline Phosphatase (45-117) U/L Total Protein (6.4-8.2) gm/dl Albumin (3.4-5.0) gm/dl Globulin (2.5-4.0) gm/dl Albumin/Globulin Ratio (0.9-2) Lipase (73-393) U/L Urine Color Dark Yellow Urine Appearance Turbid A (Clear) Urine pH 5.0 (4.5-7.5) Ur Specific [place] 1.023 (1.000-1.030) Urine Protein 2+ H (Negative) Urine Glucose (UA) Negative (Negative) Urine Ketones Negative (Negative) Urine Blood Negative (Negative) Urine Nitrite Negative (Negative) Urine Bilirubin Negative (Negative) Urine Urobilinogen Negative (Negative) Ur Leukocyte Esterase Trace H (Negative) Urine WBC (Auto) 5-10 H (0-5) /hpf Urine RBC (Auto) 0-4 (0-4) /hpf U Hyaline Cast (Auto) 10-30 H (0-5) /lpf U Epithel Cells (Auto) >30 H (0-5) /lpf Urine Bacteria (Auto) Negative (Negative) Ur Renal Epithelial Cell Not Reportable Granular Casts 5-10 H (0) /lpf Urine Yeast Not Reportable Imaging Data Radiologist's Impression: Radiology results as stated below per my review and the radiologist's interpretation: XR chest 1V portable CLINICAL HISTORY: 64 years-old Male presenting with weakness, known diffuse metastatic disease. TECHNIQUE: Portable semiupright AP view of the chest was obtained. COMPARISON: 07/03/2019. FINDINGS: Cardiomediastinal silhouette normal. Minimal basilar opacities. No pleural effusion or pneumothorax. Redemonstration of multifocal nodular opacities. Osseous structures normal. Upper abdomen normal. IMPRESSION: 1. Minimal basilar opacities likely atelectasis or scarring. This is new from prior. 2. Redemonstration of multifocal nodular opacities consistent with known underlying metastatic disease. Electronically signed by: Vinicio Rowland M.D. 07/21/2019 3:[address]AST CT DOSE: 537.48 mGy.cm HISTORY: hallucinations eval for mets TECHNIQUE: Multiaxial CT images of the head were performed without the use of intravenous contrast. Automated exposure control was utilized for this study. A dose lowering technique was utilized adhering to the principles of ALARA. Comparison: None. Findings: Trace fluid within the left sphenoid sinus. The calvarium and skull base are intact. The ventricles and sulci are within normal limits. There is no mass, hematoma, midline shift, or acute infarct. Impression: No acute intracranial abnormality. Trace fluid within the left sphenoid sinus. Electronically signed by: Pranav Wilkinson M.D. 07/21/2019 4:[address] abd pelvis wo con CLINICAL HISTORY: 64 years-old Male presenting with left abd pain eval for obstruction. TECHNIQUE: Multidetector CT of the abdomen and pelvis was performed without the use of intravenous contrast. IV contrast: None. One or more dose lowering techniques were used consistent with the principles of ALARA (as low as reasonably achievable), including automatic exposure control, mA or kV adjustment to individual patient size, and/or use of iterative reconstruction. COMPARISON: 07/01/2019. CT DOSE (mGy.cm): The estimated cumulative dose is 472.60 mGy.cm. FINDINGS: Senior Interactive Producer topogram: Distended abdomen. Lung bases: The interventricular blood pool is less dense adjacent myocardium consistent with anemia. Mildly enlarged. No pericardial or pleural effusion. Interval increase in size and extent of multiple pulmonary nodules at the lung bases. Liver: Normal morphology. Normal density. Biliary: No gross biliary ductal dilatation allowing for noncontrast technique. Normal gallbladder. Pancreas: Poorly visualized. Spleen: Normal noncontrast appearance. Adrenal glands: Normal noncontrast appearance. Kidneys and ureters: Evidence of left nephrectomy. Abnormal soft tissue in the operative bed. Bladder: Circumferential bladder wall thickening. Pelvic organs: Prostate enlargement likely secondary to benign prostatic hyperplasia. Bowel: The bowel is poorly evaluated due to noncontrast technique in the extent of peritoneal abnormalities. No bowel obstruction. Peritoneal cavity: Extensive peritoneal solid masses, which have dramatically increased since the prior exam. Small volume of abdominal pelvic ascites is also present. No free intraperitoneal gas. Lymph nodes: Nodular masses along the left periaortic region may represent lymphadenopathy versus metastatic deposits. Vasculature: Normal noncontrast appearance. Abdominal wall: Normal. Musculoskeletal: No destructive osseous lesion. IMPRESSION: 1. Dramatic interval worsening of metastatic disease primarily in the peritoneal cavity with significant interval increase in peritoneal car cinomatosis. Additionally, increased pulmonary metastatic disease is evident. 2. Left nephrectomy. 3. Chronic bladder outlet obstruction in the setting of prostatomegaly. Electronically signed by: Vinicio Rowland M.D. 07/21/2019 4:42 PM ECG Data Attestation: I personally reviewed and interpreted this ECG as follows: Indication: + tachycardia Rate (beats per minute): 103 Rhythm: + sinus tachycardia ECG Intervals/blocks: + Normal QRS ECG Royal: + Right axis deviation ECG ST segments: no ST elevation Blood Pressure Blood Pressure Findings: Normal blood pressure Blood Pressure Disposition: further management by hospitalist CYRIL Narrative I did evaluate the patient as noted above. IV access was established. I did treat the patient with IV fentanyl and Zofran. He was also given normal saline IV. The patient was placed on a continuous mine supervisor. I did order and personally review the patient's 12-lead EKG as described above. He has mild tac hycardia without ST elevations. He has some right axis deviation. He denies having any chest pain or shortness of breath. I did order and personally reviewed the images of the patient's chest x-ray as described above. He has minimal basilar atelectasis. I did order a urine analysis. I did order and review the patient's blood work as noted in the electronic medical record. He does have leukocytosis with a white count over 15,000. He is anemic but his hemoglobin is improved since his last visit. Creatinine is 1.8 which is close to his baseline. I did order a CT of the head, abdomen and pelvis. I did review the images myself as well as the radiology report as described above. The patient has interval increase of his tumor burden within the abdomen. Evaluation of the bowel was difficult due to the tumor burden. I did discuss the test results with the patient. He is still having pain and was given Dilaudid 0.5 mg IV. I did discuss the case with Dr. Conway who is his oncol ogist. He stated the patient could be admitted for pain control and further care and evaluation. The patient was amenable. I did discuss the case with the hospitalist and telephonic case manager. Impression & Plan Intractable abdominal pain, Metastatic renal cell carcinoma, Leukocytosis, Anemia, CKD (chronic kidney disease) Discharge Plan Visit Data *Final* Discharge Date/Time: 07/21/19 20:13 Chief Complaint: Dehydration Stated Complaint: REFRRED BY DOCTOR ED Provider: Larry Tamayo Discharge Problem: Intractable abdominal pain, Metastatic renal cell carcinoma, Leukocytosis, Anemia, CKD (chronic kidney disease) Patient Disposition: Admitted As Inpatient Discharge Instructions Interventions: ED Discharge Assessment Last Done: 07/21/19 20:13 Discharge Problem: Metastatic renal cell carcinoma Qualifiers: Laterality: unspecified laterality Qualified Code(s): C64.9 - Malignant neoplasm of unspecified kidney, except renal pelvis Leukocytosis Qualifiers: Leukocytosis type: unspecified Qualified Code(s): D72.829 - Elevated white blood cell count, unspecified Anemia Qualifiers: Anemia type: unspecified type Qualified Code(s): D64.9 - Anemia, unspecified CKD (chronic kidney disease) Qualifiers: Chronic kidney disease stage: unspecified stage Qualified Code(s): N18.9 - Chronic kidney disease, unspecified The scribe's documentation has been prepared under my direction and personally reviewed by me in its entirety. I confirm that the note above accurately reflects all work, treatment, procedures, and medical decision making performed by me.
[2019-07-21] MEDS: DOCUSATE SODIUM/SENNA 50/8.6MG TAB PO SCH (21:50)
[2019-07-21] MEDS: TAMSULOSIN HCL 0.4 MG CAP PO SCH (21:50)
[2019-07-21] MEDS: METOPROLOL TARTRATE 50 MG TAB PO SCH (21:51)
[2019-07-21] MEDS: ENOXAPARIN INJ 40 MG/0.4 ML SYR SQ SCH (21:51)
[2019-07-21] MEDS: OXYCODONE HCL IR 5 MG TAB (IMMEDIATE RELEASE) PO PRN (21:55)
[2019-07-22] MEDS: HYDROmorphone INJ 0.5 MG/0.5 ML SYR IV PRN ×6 (03:33→23:50)
[2019-07-22] MEDS: OXYCODONE HCL IR 5 MG TAB (IMMEDIATE RELEASE) PO PRN ×5 (04:27→20:41)
[2019-07-22] MEDS: LACTATED RINGER'S 1,000 ML IV SCH (06:38)
[2019-07-22 07:12] LABS: Basophils # (auto) 0.03 K/uL (0-0.2); Basophils % (auto) 0.2 %; Eosinophils # (auto) 0.07 K/uL (0-0.5); Eosinophils % (auto) 0.6 %; Immature Granulocytes # (auto) 0.15 K/uL (0.00-0.02); Immature Granulocytes % (auto) 1.2 %; Lymphocytes # (auto) 0.56 K/uL (1.2-3.4); Lymphocytes % (auto) 4.6 %; Mean Corpuscular Hemoglobin 26.7 pg (25-34); Mean Corpuscular Hgb Conc 30.4 g/dL (32-36); Mean Corpuscular Volume 87.8 fL (80-100); Mean Platelet Volume 9.3 fL (7.4-10.4); Monocytes # (auto) 1.12 K/uL (0.11-0.59); Monocytes % (auto) 9.3 %; Neutrophils # (auto) 10.15 K/uL (1.4-6.5); Neutrophils % (auto) 84.1 %; Nucleated RBC # (auto) 0.03 K/uL (0-0); Nucleated RBC % (auto) 0.2 %; Platelet Count 188 K/uL (130-400); RDW Coefficient of Variation 17.3 % (11.5-14.5); RDW Standard Deviation 55.1 fL (36.4-46.3); Red Blood Count 2.62 M/uL (4.7-6.1); White Blood Count 12.08 K/uL (4.8-10.8)
[2019-07-22 07:39] LABS: BUN Creatinine Ratio 16.5 (10-20); Calcium 8.2 mg/dl (8.5-10.1); Creatinine Clr Calc Pharmacy 44.4 ml/min; Est GFR (African American) 46.4; Potassium 4.1 mmol/L (3.5-5.1); RBC Morphology Unremarkable
[2019-07-22] MEDS: AMLODIPINE BESYLATE 5 MG TAB PO SCH (07:52)
[2019-07-22] MEDS: METOPROLOL TARTRATE 50 MG TAB PO SCH ×2 (07:52→20:39)
[2019-07-22] MEDS: DOCUSATE SODIUM/SENNA 50/8.6MG TAB PO SCH ×2 (07:52→20:40)
[2019-07-22] MEDS: POLYETHYLENE (MIRALAX) 17 GM PACK PO SCH (07:52)
[2019-07-22] MEDS: DUTASTERIDE 0.5 MG SCH (07:53)
--- NOTE | 2019-07-22 11:47 | Palliative Care Consultation ---
Date of Consultation July 22, 2019 Assessment & Plan (1) Cancer related pain: -63 year old male patient with recently diagnosed renal cell carcinoma s/p radical left nephrectomy on 04/22/19, who presented to the hospital now for the second time with intractable abdominal pain. This patient initially was found to have a large 27cm left kidney tumor on CT scan in April 2019-- patient had had a cough for quite some time and the tumor was incidentally found on a chest CT. He underwent surgery and the tumor removed, negative margins, and was believed to have had the entirety of the disease removed. Unfortunately about three weeks post-op patient began having abdominal pain and distension again. Patient eventually developed the same cough. He saw his PCP who ordered an abdominal CT which showed "Multiple bilateral pulmonary nodules indicative of metastatic disease, 12 cm mass within the left nephrectomy bed with left psoas invasion consistent with tumor recurrence, multiple peritoneal and extraperitoneal masses consistent with metastatic disease." Patient was eventually discharged on oral pain medications and started chemo a couple weeks ago under the care of Dr. Conway. He is not due for another chemo dose until 08/01. Patient's abdominal pain has been worsening, but the MS Contin was making him very nauseated so he stopped taking it. Patient was taking oxycodone 10mg almost every two hours without relief, so he returned to the hospital. CT abd/pelvis yet again shows dramatic increase in size of his metastatic disease. He is somewhat short of breath and satting 91% on room air. He is undergoing doppler study of the lower extremities and might be treated for possible PEs. Unable to get CTA chest due to renal function. Palliative care is consulted for pain management. -Met with patient this morning in room 257. He is awake alert and oriented x4. He appears pale and tired, somewhat labored breathing. -Abdominal pain is controlled with IV Dilaudid, but it only lasts about 2 hours. The pain is 10/10 at its worst. Is still 4-5/10 after the Dilaudid. -Patient used 3.5mg IV Dilaudid since admission and is still quite uncomfortable. Spoke with Dr. Espitia and we will start methadone 5mg TID for pain control. -Continue PRN Dilaudid for now. Methadone takes days to kick in. -Patient is constipated-- he is on Colace, senna, and Miralax. If no BM in 24-48 hours, would give Relistor. This could just be obstruction from tumor. -Appetite is very poor-- dietary will see patient as well. His abdomen is so full of tumor, he doesn't have much room to eat, but will start Decadron 4mg PO daily-- may improve energy and appetite. -Patient lives at home with his fiance. He is independent. This is an absolutely devastating diagnosis and patient seems to be declining quite quickly. Patient knows his prognosis is poor, but this has been extremely fast and overwhelming since his surgery in April. We talked about some advance directives. He would want his fiance Sharon to make decisions for him if he was unable. I encouraged him to do living will/POA paperwork. He will think about it. -We will continue to follow closely. (2) Constipation due to opioid therapy: (3) Intractable abdominal pain: (4) Metastatic renal cell carcinoma: Laterality: unspecified laterality Qualified Code(s): C64.9 - Malignant neoplasm of unspecified kidney, except renal pelvis Supervising Physician Co-Signing Physician Notes Patient known to our service from prior hospitalization. Patient known to me from outpatient palliative care clinic. Chart reviewed, patient seen and examined-no friends or family at bedside. Patient has just returned from radiology where he had lower extremity Doppler studies-these were negative. Patient appears much more pale and thin than on prior exam, with markedly increased abdominal distention. Collaborated with ZAIDA Dumont-we will start methadone at 5 mg 3 times daily for pain control, would recommend Relistor as patient has not had a bowel movement-concerned regarding bowel obstruction due to extensive carcinomatosis. PE: Patient awake and alert, appears comfortable lying flat,on his side in bed HEENT: EOMI, hearing within normal limits Respirations: Unlabored, diminished breath sounds at bases CV: Regular rate Abdomen markedly distended, firm, tender Neuro: Alert and oriented x4 Agree with above note, assessment and plan as per ZAIDA Dumont-we will continue to follow and assist patient with medical decision making. History of Present Illness Reason for Consultation: Cancer related pain Attending Physician: Juan J Allan History of Present Illness This 63 year old male patient with recently diagnosed renal cell carcinoma s/p radical left nephrectomy on 04/22/19, who presented to the hospital now for the second time with intractable abdominal pain. This patient initially was found to have a large 27cm left kidney tumor on CT scan in April 2019-- patient had had a cough for quite some time and the tumor was incidentally found on a chest CT. He underwent surgery and the tumor removed, negative margins, and was believed to have had the entirety of the disease removed. Unfortunately about three weeks post-op patient began having abdominal pain and distension again. Patient eventually developed the same cough. He saw his PCP who ordered an abdominal CT which showed "Multiple bilateral pulmonary nodules indicative of metastatic disease, 12 cm mass within the left nephrectomy bed with left psoas invasion consistent with tumor recurrence, multiple peritoneal and extraperitoneal masses consistent with metastatic disease." Patient was eventually discharged on oral pain medications and started chemo a couple weeks ago under the care of Dr. Conway. He is not due for another chemo dose until 08/01. Patient's abdominal pain has been worsening, but the MS Contin was making him very nauseated so he stopped taking it. Patient was taking oxycodone 10mg almost every two hours without relief, so he returned to the hospital. CT abd/pelvis yet again shows dramatic increase in size of his metastatic disease. He is somewhat short of breath and satting 91% on room air. He is undergoing doppler study of the lower extremities and might be treated for possible PEs. Unable to get CTA chest due to renal function. Palliative care is consulted for pain management. Thank you kindly for this consult. Palliative care team will follow as needed. Allergies Allergy/AdvReac Type Severity Reaction Status Date / Time No Known Allergies Allergy Verified 07/21/19 16:05 Home Medications Home Medications Medication Instructions Recorded Confirmed Type amlodipine 5 mg tablet 5 mg PO QAM #30 tab 05/15/19 07/21/19 Rx metoprolol tartrate 50 mg tablet 50 mg PO BID #60 tab 05/15/19 07/21/19 Rx tamsulosin 0.4 mg capsule 0.4 mg PO QPM #30 cap 05/15/19 07/21/19 Rx ferrous sulfate 325 mg PO Q2D@0700 #30 tab 07/06/19 07/21/19 Rx morphine 15 mg PO Q8H #120 tab 07/06/19 07/21/19 Rx polyethylene glycol 3350 [Miralax] 17 g PO DAILY #30 ea 07/06/19 07/21/19 Rx sennosides-docusate sodium 1 tab PO BID #30 tab 07/06/19 07/21/19 Rx [Senokot-S] dutasteride [Avodart] 0.5 mg PO DAILY 07/17/19 07/21/19 History oxycodone 5 mg PO Q2H PRN 07/17/19 07/21/19 History Patient History Medical History BPH (benign prostatic hyperplasia) Cancer of kidney Left Kidney and tumors removed. However, tumors have grown back where left kidney was Cancer related pain Chromophobe renal cell carcinoma (Chronic) Hypertension Hypertension (Chronic) Renal neoplasm (Chronic) S/p nephrectomy left nephrectomy Surgical History History of left radical nephrectomy 04/22/2019 Hx of right inguinal hernia repair x2 Social History Preferred Language: Belarusian Communication Ability: Effective Talent Development Consultant Required: No Beliefs That Will Affect Care: None marital status: Current Living Situation: Significant Other current occupational status: employed current occupation: [employer] Other Information That Helps Us Care for You: No Feels Safe at Home: Yes Safety Concerns: Feels Safe At This Time Smoking Status: Never smoker Second Hand Exposure: No ; Hx Alcohol Use: No Hx Substance Use: No Seatbelt Use: never Review of Systems Constitutional: + weakness Respiratory: + dyspnea; no cough Cardiovascular: no chest pain and no edema Gastrointestinal: + abdominal pain and + nausea Neurologic: no confusion Psychiatric: no anxiety Physical Exam Constitutional: + ill appearing; no acute distress ENMT: external ear and nose normal, oropharynx normal Respiratory: + labored breathing Auscultation: + diminished lung sounds Cardiovascular: RRR, no murmur, no edema Gastrointestinal (Abdomen): Inspection/Auscultation: + abdomen distended Percussion/Palpation: + abdomen tender and + abdominal mass (left sided); + abdomen not soft (firm) Neurologic: moves all extremities and awake Psychiatric: Orientation: alert and oriented x 3 Affect: + flat affect Results & Data Vital Signs (Past 12 Hours) Vital Signs Temp Pulse Resp BP BP Pulse Ox 07/22/19 07:45 36.7 C 80 18 124/71 96 07/22/19 04:15 36.7 C 88 18 115/71 93 Time Spent Midlevel 70 minutes with >50% of the time spent at bedside with patient discussing pain and symptom management as well as advanced care planning.
[2019-07-22] MEDS: METHADONE HCL 5 MG TAB PO SCH ×2 (13:24→20:57)
--- NOTE | 2019-07-22 15:20 | Ultrasound Report ---
BILATERAL LOWER EXTREMITY VENOUS DOPPLER HISTORY: dyspnea, extensive cancer; eval DVT COMPARISON STUDY: None. FINDINGS: There is normal compressibility, flow, and augmentation within the bilateral lower extremit y deep venous systems. IMPRESSION: No DVT within the right or left lower extremity. ACT 112: Negative or not required by law. Electronically signed by: Pranav Wilkinson M.D. 07/22/2019 3:18 PM
[2019-07-22] MEDS: dexAMETHasone 4 MG TAB PO SCH (15:37)
[2019-07-22] MEDS: TAMSULOSIN HCL 0.4 MG CAP PO SCH (20:40)
[2019-07-22] MEDS: ENOXAPARIN INJ 40 MG/0.4 ML SYR SQ SCH (20:40)
--- NOTE | 2019-07-22 20:54 | Hospitalist Progress Note ---
Date of Service July 22, 2019 Assessment & Plan (1) Intractable pain: 2nd progressive metastatic RCC with worsening carcinomatosis. Abdominal distension from the carcinomatosis is severe. Palliative care consult appreciated; to change to methadone po. Cont IV dilaudid for breakthrough pain. Add decadron - may help pain; may help anorexia. Recently started on immune-based therapy for RCC - uncertain if this will help reduce tumor burden and in turn his pain; defer to heme/onc. (2) Constipation due to opioid therapy: Cont senna/colace/miralax and titrate. If this doesn't produce results consider relistor therapy or movantik. (3) Metastatic renal cell carcinoma: Patient with diffusely metastatic disease/ progressive carcinomatosis. He follows with [facility]. Last chemo treatment was 07/15 (immune-based therapy). Very poor prognosis. (4) Leukocytosis: cause? no obvious source of infection. follow. (5) Anemia: Hb today 7. If any lower tomorrow consider PRBCs. Likely multifactorial causes but especially his progressive, stage 4 cancer. (6) CKD (chronic kidney disease): Stage 3 CKD. BMP am for stability. (7) Hypertension: Controlled on Amlodipine 5mg po daily and Metoprolol 50mg po BID (8) Benign prostatic hyperplasia: substitute finasteride for Avodart cont flomax (9) ANN (dyspnea on exertion): does have pulmonary mets so this could be causing at high risk of PEs but can't readily obtain CTA due to elevated Cr start with LE dopplers and then re-eval (10) DVT prophylaxis: lovenox consider psych eval - looks very depressed supportive therapy given today during my visit Subjective patient lying very still in bed w/ flat affect when I arrived. he c/o ongoing abd pain - "it's always there." he admits to depression and the difficulties he has had w/ his cancer. c/o dyspnea on exertion for several weeks. none at rest. denies calf or leg pain or edema. no BM in 2 days. Review of Systems Constitutional: + anorexia and + weight loss; no fever Respiratory: no cough Cardiovascular: no chest pain Gastrointestinal: + abdominal pain and + nausea; no vomiting Physical Exam Constitutional: + thin; + not well developed, + not well nourished and no acu te distress ENMT: external ear and nose normal, oropharynx normal Respiratory: Auscultation: lungs clear to auscultation bilaterally and + diminished lung sounds (bases); no crackles and no wheezes Cardiovascular: Rate/Rhythm: regular rate and regular rhythm Heart Sounds: normal S1 and normal S2; no murmur Vessels: posterior tibial pulses present and dorsalis pedis pulses present; no JVD Extremities: no edema Gastrointestinal (Abdomen): Inspection/Auscultation: + abdomen distended (severe; firm to palpation) and normal bowel sounds Percussion/Palpation: + abdomen tender (generalized); + abdomen not soft Musculoskeletal: no cyanosis or clubbing, extremities motor strength 5/5 Skin: + pallor Psychiatric: Orientation: alert and oriented x 3 Affect: no flat affect Results & Data Vital Signs (Past 12 Hours) Vital Signs Temp Pulse Resp BP Pulse Ox 07/22/19 19:20 36.8 C 97 H 20 130/76 90 07/22/19 15:21 36.8 C 90 14 108/62 91 07/22/19 11:50 36.6 C 86 18 113/68 91 Laboratory Results Laboratory Results - last 24 hr 07/21/19 07/22/19 07/22/19 15:34 06:58 06:58 WBC 12.08 H RBC 2.62 L Hgb 7.0 L Hct 23.0 L MCV 87.8 MCH 26.7 MCHC 30.4 L RDW Std Deviation 55.1 H RDW Coeff of Mohamud 17.3 H Plt Count 188 MPV 9.3 Immature Gran % (Auto) 1.2 Neut % (Auto) 84.1 Lymph % (Auto) 4.6 Glasscock % (Auto) 9.3 Eos % (Auto) 0.6 Baso % (Auto) 0.2 Immature Gran # (Auto) 0.15 H Neut # (Auto) 10.15 H Lymph # (Auto) 0.56 L Glasscock # (Auto) 1.12 H Eos # (Auto) 0.07 Baso # (Auto) 0.03 Absolute Nucleated RBC 0.03 H Nucleated RBC % (auto) 0.2 RBC Morphology Unremarkable Sodium 140 Potassium 4.1 Chloride 106 Carbon Dioxide 27 Anion Gap 6.0 BUN 29 H Creatinine 1.78 H Est Cr Clr Drug Dosing 44.4 Est GFR ( Amer) 46.4 Est GFR (Non-Af Amer) 40.0 BUN/Creatinine Ratio 16.5 Glucose 106 H Calcium 8.2 L Phosphorus 4.1 Magnesium 1.9 PG Care Time/CCT Total # of Minutes Spent Total Time Spent with Patient: Total time spent is greater than 50% in coordination of care (as documented) at patient's floor/unit and/or counseling patient: (1) Benign prostatic hyperplasia Lower urinary tract symptom presence: symptoms absent Qualified Code(s): N40.0 - Benign prostatic hyperplasia without lower urinary tract symptoms (2) Anemia Anemia type: unspecified type Qualified Code(s): D64.9 - Anemia, unspecified (3) Leukocytosis Leukocytosis type: unspecified Qualified Code(s): D72.829 - Elevated white blood cell count, unspecified (4) CKD (chronic kidney disease) Chronic kidney disease stage: unspecified stage Qualified Code(s): N18.9 - Chronic kidney disease, unspecified (5) Metastatic renal cell carcinoma Laterality: unspecified laterality Qualified Code(s): C64.9 - Malignant neoplasm of unspecified kidney, except renal pelvis (6) Hypertension Hypertension type: essential hypertension Qualified Code(s): I10 - Essential (primary) hypertension
[2019-07-22] MEDS: DOCUSATE SODIUM 100 MG CAP PO PRN (23:50)
[2019-07-23] MEDS: OXYCODONE HCL IR 5 MG TAB (IMMEDIATE RELEASE) PO PRN (01:08)
[2019-07-23 05:51] LABS: Hematocrit (blood only) 25.9 % (42-52); Hemoglobin 8.1 g/dL (14.0-18.0); Mean Corpuscular Hemoglobin 26.9 pg (25-34); Mean Corpuscular Hgb Conc 31.3 g/dL (32-36); Mean Platelet Volume 9.4 fL (7.4-10.4); Nucleated RBC # (auto) 0.03 K/uL (0-0); Nucleated RBC % (auto) 0.2 %; Platelet Count 223 K/uL (130-400); RDW Coefficient of Variation 17.2 % (11.5-14.5); RDW Standard Deviation 53.7 fL (36.4-46.3); Red Blood Count 3.01 M/uL (4.7-6.1); White Blood Count 14.88 K/uL (4.8-10.8)
[2019-07-23 06:28] LABS: BUN Creatinine Ratio 17.2 (10-20); Calcium 8.8 mg/dl (8.5-10.1); Est GFR (African American) 48.3; Est GFR (Non-African American) 41.7; Potassium 4.8 mmol/L (3.5-5.1)
[2019-07-23] MEDS: HYDROmorphone INJ 0.5 MG/0.5 ML SYR IV PRN ×4 (07:19→22:39)
[2019-07-23] MEDS: ONDANSETRON INJ 2 MG/ML 2 ML VIAL IV PRN ×2 (07:20→14:00)
[2019-07-23] MEDS: METOPROLOL TARTRATE 50 MG TAB PO SCH ×2 (08:22→21:01)
[2019-07-23] MEDS: DOCUSATE SODIUM/SENNA 50/8.6MG TAB PO SCH ×2 (08:22→21:00)
[2019-07-23] MEDS: FINASTERIDE 5 MG TAB PO SCH (08:22)
[2019-07-23] MEDS: DOCUSATE SODIUM 100 MG CAP PO PRN (08:22)
[2019-07-23] MEDS: AMLODIPINE BESYLATE 5 MG TAB PO SCH (08:22)
[2019-07-23] MEDS: POLYETHYLENE (MIRALAX) 17 GM PACK PO SCH (08:22)
[2019-07-23] MEDS: dexAMETHasone 4 MG TAB PO SCH (08:22)
[2019-07-23] MEDS: METHADONE HCL 5 MG TAB PO SCH ×3 (08:27→21:07)
--- NOTE | 2019-07-23 11:19 | Palliative Care Progress Note ---
Date of Service July 23, 2019 Assessment & Plan (1) Cancer related pain: -Met with patient this morning in room 257. He is awake alert and oriented x4. He was lying in his bed in no apparent distress. -He does not appear to be having dyspnea and denies with discussion. Patient was evaluated for orthostasis and BP normal. -From a pain management standpoint, he reports generalized abdominal pain with radiation into his right buttocks. He stated at worst it is 10/10 and at best is 5/10. He said 0/10 is his goal which I stated may not be a realistic expectation. -He has utilized FOUR doses of Oxycodone 5 mg Q2 PRN over the past 24 hours has also utilized FOUR doses of Dilaudid Q1 PRN. He started Methadone yesterday 5 mg TID. He is tolerating this well. Likely increase dose over next day or two. -Patient not close to a discharge date, would like a better sense of pain coverage, will D/C all Oxycodone po so we can establish better control with just Dilaudid. If moving towards a discharge date, consider converting to PO, will reevaluate over the next few days. -Patient reports having a poor appetite and everything tastes metallic. Discussed starting Marinol 2.5 po BID which I will order. Also continue Decadron as well, this also could have a nausea coverage component as well. -Overall, he states that his nausea is controlled with Zofran IV. He has utilized one dose over the past 24 hours. Would consider scheduling Zofran should his nausea worsen. -Patient has not had a BM now for 3 days. I spoke at length with him regarding opioid-induced constipation and risk of SBO and the challenges with likely worsening pain/symptoms. Discussed the importance of using a MD Suppository, which he will take. Dulcolax is ordered. Will also order Relistor (Methyln altrexone Williams) 12 mg SQ Q2 days. He is receptive of this as well. -Patient lives at home with his fiance. He is independent. This is an absolutely devastating diagnosis and patient seems to be declining quite quickly. Patient knows his prognosis is poor, but this has been extremely fast and overwhelming since his surgery in April. He stated that he wishes "they could just cut the tumor out of me". He became tearful during our conversation. He disucssed FMLA and disability, discussed with Yuko CERDA/Nurse Navigator and Dr. Allan who will work on discussing further about the paperwork that goes into this. -Yesterday, my colleague discussed advance directives. He would want his fiance Sharon to make decisions for him if he was unable. I encouraged him to do living will/POA paperwork. He will think about it. -We will continue to follow closely. All above discussed with primary RN and Hospitalist and Case Management. -PPS: 30% (2) Constipation due to opioid therapy: (3) Intractable abdominal pain: (4) Metastatic renal cell carcinoma: Subjective Patient continues to be lying very still in bed during our encounter. He c/o ongoing abd pain - "it's always there." He admits to depression and the difficulties he has had w/ his cancer. He became tearful during my encounter and asked "why can't they just cut this out of me", they have to fix it. Pt has not had a BM x 3 days. See A/P for further details. Review of Systems Constitutional: + weakness Respiratory: as per Subjective / HPI and + cough Gastrointestinal: + abdominal pain and + nausea; no vomiting Physical Exam Constitutional: cooperative and + lethargic Respiratory: normal respiratory effort, lungs clear to auscultation Cardiovascular: RRR, no murmur, no edema Gastrointestinal (Abdomen): normal bowel sounds, soft, nontender, no hepatosplenomegaly Skin: no rashes, warm and dry + pallor Psychiatric: A+Ox3, euthymic affect Results & Data Vital Signs (Past 12 Hours) Vital Signs Temp Pulse Resp BP Pulse Ox 07/23/19 07:00 36.6 C 86 18 115/67 93 07/23/19 04:00 36.6 C 74 18 121/69 92 07/22/19 23:31 36.9 C 81 20 105/59 L 94 PG Care Time/CCT Total # of Minutes Spent Total Time Spent with Patient: Total time spent is greater than 50% in coordination of care (as documented) at patient's floor/unit and/or counseling patient: 45 Time Spent Midlevel Total time spent 45 minutes with > 50% of that time spent assessing the patient, discussing and adjusting pain and symptom medications, discussing goals of care with patient and IDT. (1) Metastatic renal cell carcinoma Laterality: unspecified laterality Qualified Code(s): C64.9 - Malignant neoplasm of unspecified kidney, except renal pelvis
[2019-07-23] MEDS: METHYLNALTREXONE BROMIDE 12 MG/0.6 ML VIAL SQ SCH (14:28)
--- NOTE | 2019-07-23 19:05 | Hospitalist Progress Note ---
Date of Service July 23, 2019 Assessment & Plan (1) Intractable pain: 2nd progressive metastatic RCC with worsening carcinomatosis. Abdominal distension from the carcinomatosis is severe. Palliative care consult appreciated. Start methadone yesterday 5mg TID; defer titration to them. Cont IV dilaudid for breakthrough pain. Cont decadron - may help pain; may help anorexia. Recently started on immune-based therapy for RCC - uncertain if this will help reduce tumor burden and in turn his pain; defer to heme/onc. Constipation probably also contributing to abd pain. (2) Constipation due to opioid therapy: Cont senna/colace/miralax. Try dulcolax suppos today. If this doesn't produce results start relistor tomorrow. (3) Metastatic renal cell carcinoma: Patient with diffusely metastatic disease/ progressive carcinomatosis. He follows with [facility]. Last chemo treatment was 07/15 (immune-based therapy). Very poor prognosis. (4) Leukocytosis: cause? no obvious source of infection. follow. stress reaction to pain? (5) Anemia: Hb today better - now >8. Likely multifactorial causes but especially his progressive, stage 4 cancer. Follow. (6) CKD (chronic kidney disease): Stage 3 CKD. BMP stable today. (7) Hypertension: Controlled on Amlodipine 5mg po daily and Metoprolol 50mg po BID (8) Benign prostatic hyperplasia: cont finasteride cont flomax (9) ANN (dyspnea on exertion): does have pulmonary mets so this could be causing at high risk of PEs but can't readily obtain CTA due to elevated Cr LE dopplers negative but still consider some chest imaging (10) DVT prophylaxis: lovenox declining psych eval Subjective abd pain minimally improved. constipation - ongoing; no BM 3+ days. no nausea. ate better at breakfast but appetite still poor. declines psych consult for depressive symptoms. no other new complaints. Review of Systems Constitutional: no fever and no chills Respiratory: + dyspnea and + dyspnea on exertion Cardiovascular: no chest pain Gastrointestinal: as per Subjective / HPI, + abdominal pain, + bloating and + constipation Physical Exam Constitutional: + thin; + not well developed, + not well nourished and no acute distress ENMT: external ear and nose normal, oropharynx normal Respiratory: Auscultation: lungs clear to auscultation bilaterally and + diminished lung sounds (bases); no crackles and no wheezes Cardiovascular: Rate/Rhythm: regular rate and regular rhythm Heart Sounds: normal S1 and normal S2; no murmur Vessels: posterior tibial pulses present and dorsalis pedis pulses present; no JVD Extremities: no edema Gastrointestinal (Abdomen): Inspection/Auscultation: + abdomen distended (severe; firm to palpation) and normal bowel sounds Percussion/Palpation: + abdomen tender (generalized); + abdomen not soft Musculoskeletal: no cyanosis or clubbing, extremities motor strength 5/5 Psychiatric: Orientation: alert and oriented x 3 Results & Data Vital Signs (Past 12 Hours) Vital Signs Temp Pulse Resp BP Pulse Ox 07/23/19 16:09 36.7 C 84 18 121/69 92 07/23/19 11:00 36.6 C 75 18 111/64 91 Laboratory Results Laboratory Results - last 24 hr 07/23/19 07/23/19 05:40 05:40 WBC 14.88 H RBC 3.01 L Hgb 8.1 L Hct 25.9 L MCV 86.0 MCH 26.9 MCHC 31.3 L RDW Std Deviation 53.7 H RDW Coeff of Mohamud 17.2 H Plt Count 223 MPV 9.4 Absolute Nucleated RBC 0.03 H Nucleated RBC % (auto) 0.2 Sodium 138 Potassium 4.8 D Chloride 105 Carbon Dioxide 28 Anion Gap 6.0 BUN 30 H Creatinine 1.72 H Est Cr Clr Drug Dosing 46.0 Est GFR ( Amer) 48.3 Est GFR (Non-Af Amer) 41.7 BUN/Creatinine Ratio 17.2 Glucose 119 H Calcium 8.8 PG Care Time/CCT Total # of Minutes Spent Total Time Spent with Patient: Total time spent is greater than 50% in coordination of care (as documented) at patient's floor/unit and/or counseling patient: (1) Benign prostatic hyperplasia Lower urinary tract symptom presence: symptoms absent Qualified Code(s): N40.0 - Benign prostatic hyperplasia without lower urinary tract symptoms (2) Anemia Anemia type: unspecified type Qualified Code(s): D64.9 - Anemia, unspecified (3) Leukocytosis Leukocytosis type: unspecified Qualified Code(s): D72.829 - Elevated white blood cell count, unspecified (4) CKD (chronic kidney disease) Chronic kidney disease stage: unspecified stage Qualified Code(s): N18.9 - Chronic kidney disease, unspecified (5) Metastatic renal cell carcinoma Laterality: unspecified laterality Qualified Code(s): C64.9 - Malignant neoplasm of unspecified kidney, except renal pelvis (6) Hypertension Hypertension type: essential hypertension Qualified Code(s): I10 - Essential (primary) hypertension
[2019-07-23] MEDS: TAMSULOSIN HCL 0.4 MG CAP PO SCH (21:00)
[2019-07-23] MEDS: ENOXAPARIN INJ 40 MG/0.4 ML SYR SQ SCH (21:01)
[2019-07-23] MEDS: DRONABINOL 2.5 MG CAP PO SCH (21:06)
[2019-07-24] MEDS: HYDROmorphone INJ 0.5 MG/0.5 ML SYR IV PRN ×3 (02:29→07:57)
[2019-07-24] MEDS: ONDANSETRON INJ 2 MG/ML 2 ML VIAL IV PRN ×2 (06:13→16:24)
[2019-07-24] MEDS: POLYETHYLENE (MIRALAX) 17 GM PACK PO SCH (07:58)
[2019-07-24] MEDS: dexAMETHasone 4 MG TAB PO SCH (07:58)
[2019-07-24] MEDS: AMLODIPINE BESYLATE 5 MG TAB PO SCH (07:59)
[2019-07-24] MEDS: METOPROLOL TARTRATE 50 MG TAB PO SCH ×2 (07:59→20:30)
[2019-07-24] MEDS: FINASTERIDE 5 MG TAB PO SCH (07:59)
[2019-07-24] MEDS: DOCUSATE SODIUM/SENNA 50/8.6MG TAB PO SCH ×2 (08:00→20:30)
[2019-07-24] MEDS: DRONABINOL 2.5 MG CAP PO SCH ×2 (08:08→20:48)
[2019-07-24] MEDS: METHADONE HCL 5 MG TAB PO SCH ×3 (08:08→20:48)
[2019-07-24 08:55] LABS: BUN Creatinine Ratio 20.8 (10-20); Calcium 8.6 mg/dl (8.5-10.1); Creatinine Clr Calc Pharmacy 49.7 ml/min; Est GFR (African American) 53.1; Est GFR (Non-African American) 45.8
--- NOTE | 2019-07-24 12:50 | Palliative Care Progress Note ---
Date of Service July 24, 2019 Assessment & Plan (1) Cancer related pain: -Patient's abdominal pain is a little better today. It is 3-4/10, and he has some nausea but no vomiting. -Pain is decently controlled today, but only when not moving. -Patient's goal is for abdominal pain to be 3/10 even with movement. -Will increase Dilaudid to 1mg IV Q2h PRN pain. -Continue with methadone 5mg TID. -Once pain is stable and we see what patient uses to be comfortable, will switch to something orally. Possibly oral Dilaudid. He was on oxycodone prior to coming in, it was not strong enough. -We will continue to follow closely. -Discussed a lot of advance care planning issues today. Patient does not have living will or POA paperwork. He does have a sister that he hasn't spoken to for about 5-6 years. His mother is elderly in a nursing. I encouraged patient to get POA paperwork done JUANY, and again told him that we do offer that here in the hospital. -Patient's fileatha Herrera states that they are considering a second opinion at another facility. I discussed this with the patient. He stated that after his second chemo dose on 08/01, he might consider second opinion. I encouraged them to talk with his oncologist about this. Dr. Allan has informed Dr. Conway of patient's admission. (2) Constipation due to opioid therapy: (3) Intractable abdominal pain: (4) Metastatic renal cell carcinoma: Subjective -Patient's abdominal pain is a little better today. It is 3-4/10, and he has some nausea but no vomiting. -Pain is decently controlled today, but only when not moving. Review of Systems Review of Systems: C/o abdominal pain 3-4/10. C/o nausea periodically, no vomiting. Physical Exam 2 Constitutional: + ill appearing; no acute distress ENMT: external ear and nose normal, oropharynx normal Respiratory: + labored breathing Auscultation: + diminished lung sounds Cardiovascular: RRR, no murmur, no edema Gastrointestinal (Abdomen): Inspection/Auscultation: + abdomen distended Percussion/Palpation: + abdomen tender and + abdominal mass (left sided); + abdomen not soft (firm) Neurologic: moves all extremities and awake Psychiatric: Orientation: alert and oriented x 3 Affect: + flat affect Results & Data Vital Signs (Past 12 Hours) Vital Signs Temp Pulse Resp BP BP Pulse Ox 07/24/19 11:17 36.6 C 77 18 114/71 90 07/24/19 07:03 36.7 C 78 17 111/67 93 07/24/19 02:36 36.3 C L 75 18 125/73 95 Supervising Physician Co-Signing Physician Notes Patient known to our service from prior hospitalization. Patient known to me from outpatient palliative care clinic. Chart reviewed, patient seen and examined-patient's fianc at bedside -Cancer related pain-patient started on methadone 5 mg 3 times daily-patient does note potentiation of current Dilaudid dose, agree with increasing his current dose to 1 mg as needed as his pain is not controlled at 0.5 mg with movement. -Patient did have 2 small bowel movements yesterday after receiving Relistor PE: Patient awake and alert, appears comfortable lying in bed HEENT: EOMI, hearing within normal limits Respirations: Unlabored, diminished breath sounds at bases CV: Regular rate Abdomen markedly distended, firm, tender, no bowel sounds appreciated Neuro: Alert and oriented x4 Psych: Appropriate mood and affect Agree with above note, assessment and plan as per ZAIDA Dumont-we will continue to follow and assist patient with medical decision making. PG Care Time/CCT Prolonged Care Time Prolonged Care Time: Yes Total Prolonged Care Time: 45 Time Spent Midlevel 45 minutes with >50% of the time spent at bedside with patient, fiance, and multiple providers discussing plan of care. Attending Spent 35 minutes in addition to the 45 minutes spent by ZAIDA Dumont for a total of 80 minutes with greater than 50% of the time spent at bedside discussing treatment options for pain management as well as counseling regarding advanced directives. Critical Care Time Prolonged Care Time Prolonged Care Time: Yes Total Prolonged Care Time: 45 80 (1) Metastatic renal cell carcinoma Laterality: unspecified laterality Qualified Code(s): C64.9 - Malignant neoplasm of unspecified kidney, except renal pelvis
[2019-07-24] MEDS: HYDROmorphone INJ 1 MG/ML SYRINGE IV PRN ×2 (16:24→19:34)
[2019-07-24] MEDS: ENOXAPARIN INJ 40 MG/0.4 ML SYR SQ SCH (20:24)
[2019-07-24] MEDS: TAMSULOSIN HCL 0.4 MG CAP PO SCH (20:30)
--- NOTE | 2019-07-24 21:00 | Hospitalist Progress Note ---
Date of Service July 24, 2019 Assessment & Plan (1) Intractable pain: 2nd progressive metastatic RCC with worsening carcinomatosis. Abdominal distension from the carcinomatosis is severe. Palliative care consult appreciated. Remains on methadone 5mg TID; defer titration to palliative care team. Cont dilaudid prn. Cont decadron. Recently started on immune-based therapy for RCC - uncertain if this will help reduce tumor burden and in turn his pain; defer to heme/onc. Constipation probably also contributing to abd pain. (2) Constipation due to opioid therapy: Cont senna/colace/miralax. Added relistor. (3) Metastatic renal cell carcinoma: Patient with diffusely metastatic disease/ progressive carcinomatosis. He follows with Dr Conway at [facility]. Last chemo treatment was 07/15 (immune-based therapy). Very poor prognosis. Spoke with Dr Conway who will pay him a visit today. (4) Anemia: repeat CBC am for stability most of the anemia is likely due to advanced cancer (5) CKD (chronic kidney disease): Stage 3 CKD. BMP shows stable/improved Cr (6) Hypertension: Controlled on Amlodipine 5mg po daily and Metoprolol 50mg po BID (7) Benign prostatic hyperplasia: cont finasteride cont flomax no issues (8) ANN (dyspnea on exertion): does have pulmonary mets so this could be causing at high risk of PEs LE dopplers negative DVT spoke with patient today about pursuing VQ scan or CTA chest he declines both - instead wanting to focus on pain control (9) DVT prophylaxis: lovenox previously declined psych consult for depressive symptoms care plan d/w multiple disciplines at multidisciplinary rounds today Subjective patient w/o any new complaints had 2 small stools yesterday eating is slightly better than previous pain in abdomen is ongoing if he is still the pain is not there any movement provokes the pain Review of Systems Constitutional: no fever Respiratory: + dyspnea on exertion; no cough Cardiovascular: no chest pain Gastrointestinal: + bloating, + nausea and + constipation; no abdominal pain Physical Exam Constitutional: + thin; + not well developed, + not well nourished and no acute distress ENMT: external ear and nose normal, oropharynx normal Respiratory: Auscultation: lungs clear to auscultation bilaterally and + diminished lung sounds (bases); no crackles and no wheezes Cardiovascular: Rate/Rhythm: regular rate and regular rhythm Heart Sounds: normal S1 and normal S2; no murmur Vessels: posterior tibial pulses present and dorsalis pedis pulses present; no JVD Extremities: no edema Gastrointestinal (Abdomen): Inspection/Auscultation: + abdomen distended (severe; firm to palpation) and normal bowel sounds Percussion/Palpation: abdomen nontender and + abdomen not soft Musculoskeletal: no cyanosis or clubbing, extremities motor strength 5/5 Psychiatric: Orientation: alert and oriented x 3 Results & Data Vital Signs (Past 12 Hours) Vital Signs Temp Pulse Resp BP Pulse Ox 07/24/19 20:28 86 131/76 93 07/24/19 19:09 36.6 C 85 16 117/71 93 07/24/19 15:16 36.5 C 78 16 117/73 93 07/24/19 11:17 36.6 C 77 18 114/71 90 Laboratory Results Laboratory Results - last 24 hr 07/24/19 07:20 Sodium 142 Potassium 4.0 D Chloride 108 H Carbon Dioxide 28 Anion Gap 6.0 BUN 33 H Creatinine 1.59 H Est Cr Clr Drug Dosing 49.7 Est GFR ( Amer) 53.1 Est GFR (Non-Af Amer) 45.8 BUN/Creatinine Ratio 20.8 H Glucose 97 Calcium 8.6 PG Care Time/CCT Total # of Minutes Spent Total Time Spent with Patient: Total time spent is greater than 50% in coordination of care (as documented) at patient's floor/unit and/or counseling patient: (1) Benign prostatic hyperplasia Lower urinary tract symptom presence: symptoms absent Qualified Code(s): N40.0 - Benign prostatic hyperplasia without lower urinary tract symptoms (2) Anemia Anemia type: unspecified type Qualified Code(s): D64.9 - Anemia, unspecified (3) CKD (chronic kidney disease) Chronic kidney disease stage: unspecified stage Qualified Code(s): N18.9 - Chronic kidney disease, unspecified (4) Metastatic renal cell carcinoma Laterality: unspecified laterality Qualified Code(s): C64.9 - Malignant neoplasm of unspecified kidney, except renal pelvis (5) Hypertension Hypertension type: essential hypertension Qualified Code(s): I10 - Essential (primary) hypertension
[2019-07-25] MEDS: HYDROmorphone INJ 1 MG/ML SYRINGE IV PRN (01:20)
[2019-07-25] MEDS: ONDANSETRON INJ 2 MG/ML 2 ML VIAL IV PRN (01:24)
--- NOTE | 2019-07-25 09:19 | Palliative Care Progress Note ---
Date of Service July 25, 2019 Assessment & Plan (1) Cancer related pain: -Patient had episode of feeling short of breath this morning. His oxygen saturation remained 95% per the patient. The nursing placed 1L oxygen via nasal cannula. Patient lied down and is feeling better. He feels like his lungs cannot expand, which makes sense due to his distended abdomen. -No BM yesterday or today yet. -Abdominal pain is still 3-4/10, worsens with any movement. Used 3 doses of 1mg IV Dilaudid. -Discontinue IV Dilaudid, switch to Dilaudid 4mg PO Q2h PRN pain. -Change IV Zofran to oral. -Patient's plan is to go home after hospitalization. His next chemo dose is 08/01. He should continue to follow with Dr. Espitia upon discharge. (2) Constipation due to opioid therapy: (3) Intractable abdominal pain: (4) Metastatic renal cell carcinoma: Subjective Patient had episode of feeling short of breath this morning. His oxygen saturation remained 95% per the patient. The nursing placed 1L oxygen via nasal cannula. Patient lied down and is feeling better. He feels like his lungs cannot expand, which makes sense due to his distended abdomen. No BM yesterday or today yet. Abdominal pain is still 3-4/10, worsens with any movement. Used 3 doses of 1mg IV Dilaudid. Review of Systems Review of Systems: C/o abdominal pain 3-4/10. C/o nausea periodically, no vomiting. Physical Exam Constitutional: + ill appearing; no acute distress ENMT: external ear and nose normal, oropharynx normal Respiratory: no labored breathing (is difficult to take deep breath due to his distended abdomen) Auscultation: + diminished lung sounds Cardiovascular: RRR, no murmur, no edema Gastrointestinal (Abdomen): Inspection/Auscultation: + abdomen distended and + hypoactive bowel sounds Percussion/Palpation: + abdomen tender and + abdominal mass (left sided); + abdomen not soft (firm) Neurologic: moves all extremities and awake Psychiatric: Orientation: alert and oriented x 3 Results & Data Vital Signs (Past 12 Hours) Vital Signs Temp Pulse Resp BP Pulse Ox 07/25/19 07:16 36.5 C 85 18 115/69 95 07/25/19 03:51 36.4 C L 75 18 125/68 91 07/24/19 23:45 36.4 C L 74 18 115/68 91 Time Spent Midlevel 35 minutes with >50% of the time spent at bedside with patient discussing pain management, as well as coordinating care with physicians and IDT. (1) Metastatic renal cell carcinoma Laterality: unspecified laterality Qualified Code(s): C64.9 - Malignant neoplasm of unspecified kidney, except renal pelvis
[2019-07-25] MEDS: AMLODIPINE BESYLATE 5 MG TAB PO SCH (09:30)
[2019-07-25] MEDS: METOPROLOL TARTRATE 50 MG TAB PO SCH ×3 (09:30→21:05)
[2019-07-25] MEDS: dexAMETHasone 4 MG TAB PO SCH (09:30)
[2019-07-25] MEDS: METHYLNALTREXONE BROMIDE 12 MG/0.6 ML VIAL SQ SCH (09:31)
[2019-07-25] MEDS: POLYETHYLENE (MIRALAX) 17 GM PACK PO SCH (09:31)
[2019-07-25] MEDS: FINASTERIDE 5 MG TAB PO SCH (09:31)
[2019-07-25] MEDS: DRONABINOL 2.5 MG CAP PO SCH ×3 (09:33→17:12)
[2019-07-25] MEDS: DOCUSATE SODIUM/SENNA 50/8.6MG TAB PO SCH ×2 (09:36→21:05)
[2019-07-25] MEDS: HYDROmorphone HCL 2 MG TAB PO PRN ×3 (09:46→23:33)
[2019-07-25] MEDS: ONDANSETRON 4 MG OD TAB PO PRN ×2 (09:49→21:11)
[2019-07-25] MEDS: METHADONE HCL 5 MG TAB PO SCH ×3 (09:55→21:05)
--- NOTE | 2019-07-25 19:53 | Hospitalist Progress Note ---
Date of Service July 25, 2019 Assessment & Plan (1) Intractable pain: 2nd progressive metastatic RCC with severe carcinomatosis. Palliative care consult and recs much appreciated. Remains on methadone 5mg TID; defer titration to palliative care team. Cont dilaudid prn. Switching to PO dilaudid today. Cont decadron. Patient declining any option that would involve IV pain meds at home. Recently started on immune-based therapy for RCC - defer to heme/onc (Dr Conway). Dr Conway did talk with the patient and his significant other today. (2) Constipation due to opioid therapy: Cont senna/colace/miralax. Added relistor with positive results. (3) Metastatic renal cell carcinoma: Patient with diffusely metastatic disease/ progressive carcinomatosis. He follows with Dr Conway at [facility]. Last chemo treatment was 07/15 (immune-based therapy). Next treatment is scheduled for 08/01. Very poor prognosis. Dr Conway spoke with patient at bedside today about options for care. Hospice has been discussed. (4) Anemia: repeat CBC am for stability 2nd to advanced cancer (5) CKD (chronic kidney disease): Stage 3 CKD. BMP am. (6) Hypertension: Controlled on Amlodipine 5mg po daily and Metoprolol 50mg po BID (7) Benign prostatic hyperplasia: cont finasteride cont flomax no issues (8) ANN (dyspnea on exertion): does have pulmonary mets so this could be causing his dyspnea overnight his dyspnea had worsened; required oxygen briefly at high risk of PEs LE dopplers negative DVT however to date patient has declined pursuing additional work-up to r/o PEs if he wishes to continue routine care (as opposed to hospice) I would recommend CTA chest recheck BMP am if Cr stable then CTA tomorrow (9) DVT prophylaxis: lovenox previously declined psych consult for depressive symptoms care plan d/w multiple disciplines at multidisciplinary rounds once again today I updated pt's significant other by phone on 07/25/19 Subjective patient w/ ongoing pain, particularly with movement/activity. pain is controlled at rest. using the dilaudid IV but not as frequently as expected. did have another bowel movement. patient was very distraught today. started crying while I was visiting with him. very anxious about numerous social issues including "what am I going to do with my house?" "what am I going to do with my car?" we talked briefly about the option of having IV pain meds at home. He quickly stated he would not want to go that route. Mr Sterling had oxygen tubing on and I asked when he needed such. Had to use the oxygen last night; had dyspnea while laying in bed. Review of Systems Constitutional: + anorexia; no fever Respiratory: + dyspnea and + dyspnea on exertion; no cough Cardiovascular: no chest pain Gastrointestinal: + abdominal pain Genitourinary: no difficulty urinating Physical Exam Constitutional: + thin and + cachectic; + not well developed, + not well nourished and no acute distress tearful ENMT: external ear and nose normal, oropharynx normal Respiratory: Auscultation: lungs clear to auscultation bilaterally and + diminished lung sounds (bases); no crackles and no wheezes Cardiovascular: Rate/Rhythm: regular rate and regular rhythm Heart Sounds: normal S1 and normal S2; no murmur Vessels: posterior tibial pulses present and dorsalis pedis pulses present; no JVD Extremities: no edema Gastrointestinal (Abdomen): Inspection/Auscultation: + abdomen distended (severe) and normal bowel sounds Percussion/Palpation: abdomen nontender and + abdomen not soft Musculoskeletal: no cyanosis or clubbing, extremities motor strength 5/5 Skin: + pallor Psychiatric: Orientation: alert and oriented x 3 Affect: + tearful affect Results & Data Vital Signs (Past 12 Hours) Vital Signs Temp Pulse Resp BP Pulse Ox 07/25/19 18:39 36.9 C 87 07/25/19 12:08 36.4 C L 81 18 117/72 93 PG Care Time/CCT Total # of Minutes Spent Total Time Spent with Patient: Total time spent is greater than 50% in coordination of care (as documented) at patient's floor/unit and/or counseling patient: (1) Metastatic renal cell carcinoma Laterality: unspecified laterality Qualified Code(s): C64.9 - Malignant neoplasm of unspecified kidney, except renal pelvis (2) Anemia Anemia type: unspecified type Qualified Code(s): D64.9 - Anemia, unspecified (3) CKD (chronic kidney disease) Chronic kidney disease stage: unspecified stage Qualified Code(s): N18.9 - Chronic kidney disease, unspecified (4) Hypertension Hypertension type: essential hypertension Qualified Code(s): I10 - Essential (primary) hypertension (5) Benign prostatic hyperplasia Lower urinary tract symptom presence: symptoms absent Qualified Code(s): N40.0 - Benign prostatic hyperplasia without lower urinary tract symptoms
[2019-07-25] MEDS: TAMSULOSIN HCL 0.4 MG CAP PO SCH (21:06)
[2019-07-25] MEDS: ENOXAPARIN INJ 40 MG/0.4 ML SYR SQ SCH (21:07)
[2019-07-26] MEDS: HYDROmorphone HCL 2 MG TAB PO PRN ×4 (01:45→20:11)
[2019-07-26 07:12] LABS: Hematocrit (blood only) 25.2 % (42-52); Hemoglobin 7.6 g/dL (14.0-18.0); Mean Corpuscular Hemoglobin 26.5 pg (25-34); Mean Corpuscular Hgb Conc 30.2 g/dL (32-36); Mean Corpuscular Volume 87.8 fL (80-100); Mean Platelet Volume 9.6 fL (7.4-10.4); Nucleated RBC # (auto) 0.04 K/uL (0-0); Nucleated RBC % (auto) 0.4 %; Platelet Count 182 K/uL (130-400); RDW Coefficient of Variation 17.9 % (11.5-14.5); RDW Standard Deviation 56.2 fL (36.4-46.3); Red Blood Count 2.87 M/uL (4.7-6.1); White Blood Count 12.28 K/uL (4.8-10.8)
[2019-07-26 07:48] LABS: BUN Creatinine Ratio 21.5 (10-20); Calcium 8.4 mg/dl (8.5-10.1); Creatinine Clr Calc Pharmacy 47.1 ml/min; Est GFR (African American) 49.7; Est GFR (Non-African American) 42.9; Potassium 4.3 mmol/L (3.5-5.1)
[2019-07-26] MEDS: METHADONE HCL 5 MG TAB PO SCH ×4 (09:05→20:12)
[2019-07-26] MEDS: ONDANSETRON 4 MG OD TAB PO PRN (09:06)
[2019-07-26] MEDS: DRONABINOL 2.5 MG CAP PO SCH ×2 (09:52→16:49)
[2019-07-26] MEDS: FINASTERIDE 5 MG TAB PO SCH (09:53)
[2019-07-26] MEDS: POLYETHYLENE (MIRALAX) 17 GM PACK PO SCH (09:54)
[2019-07-26] MEDS: AMLODIPINE BESYLATE 5 MG TAB PO SCH (09:54)
[2019-07-26] MEDS: METOPROLOL TARTRATE 50 MG TAB PO SCH ×2 (09:54→20:11)
[2019-07-26] MEDS: DOCUSATE SODIUM/SENNA 50/8.6MG TAB PO SCH ×2 (09:54→20:11)
[2019-07-26] MEDS: dexAMETHasone 4 MG TAB PO SCH (09:55)
[2019-07-26] MEDS ORDERED: SODIUM CHLORIDE 0.9% 500 ML IV SCH (14:15)
[2019-07-26] MEDS ORDERED: OPTIRAY 320 125ml IV PRN (16:26)
--- NOTE | 2019-07-26 16:40 | CT Scan Report ---
CT angio chest PE protocol CLINICAL HISTORY: 64 years-old Male presenting with MN ^dyspnea, stage 4 renal cancer; eval PE. TECHNIQUE: Multidetector CT angiography of the chest was performed after administration of intravenou s contrast. 3-D volumetric and/or maximum intensity projection (MIP) images were subsequently reconst ructed for review. IV contrast: 105 mL of Optiray 320. One or more dose lowering techniques were used consistent with the principles of ALARA (as low as reasonably achievable), including automatic expos ure control, mA or kV adjustment to individual patient size, and/or use of iterative reconstruction. COMPARISON: Noncontrast CT chest from 07/03/2019. CT DOSE (mGy.cm): The estimated cumulative dose is 279.64 mGy.cm. FINDINGS: Package Winder topogram: Unremarkable. Pulmonary vasculature: The study is adequate for assessment of the pulmonary vascular tree. No filling defect within the pul monary arteries to suggest embolus. Main pulmonary artery is not enlarged. No flattening of the inter ventricular septum. No intracardiac filling defect. No reflux of contrast into the hepatic veins. Remaining chest: Soft tissues: Normal thyroid and thoracic inlet. No axillary, supraclavicular, mediastinal, or hilar lymphadenopathy. Normal aorta. Mild multichamber enlargement of the heart. Coronary artery calcificat ion. Trace pleural effusions, left greater than right. No or pericardial effusion. Extensive ascites in the upper abdomen with partially visualized large peritoneal masses. Lungs and airways: No pneumothorax. Central airways patent. Pulmonary arteries mildly enlarged relati ve to adjacent bronchi. No interlobular septal thickening. Multiple pulmonary nodules and masses thro ughout all 5 lobes as described on the most recent prior. These have significantly increased in size. Apart from these nodules there is also extensive bibasilar atelectasis. No other focal infiltrate. Musculoskeletal: Degenerative changes of the spine. IMPRESSION: 1. No evidence of pulmonary embolus. 2. Significant interval progression of disease with increased size of the multiple bilateral pulmona ry metastases. 3. Partially visualized extensive abdominal ascites and peritoneal implants. 4. Mild cardiomegaly. No significant congestive change. No evidence of pulmonary edema. 5. Trace pleural effusions. ACT 112: Negative or not required by law. Electronically signed by: Vinicio Rowland M.D. 07/26/2019 4:39 PM
--- NOTE | 2019-07-26 19:44 | Hospitalist Progress Note ---
Date of Service July 26, 2019 Assessment & Plan (1) Intractable pain: 2nd progressive metastatic RCC with severe carcinomatosis. Palliative care consult and recs much appreciated. Increase methadone to 10mg TID (was started on this Sunday; thus the 5mg TID was at steady state). Cont dilaudid PO prn. He doesn't wish to return to IV dilaudid or switch to INSTRUCTIONAL SPECIALIST at this time. Constipation likely contributing to pain. Cannot rule out SBP as he has ascites on imaging today. Defer on paracentesis. Focus on pain control. (2) Constipation due to opioid therapy: Cont senna/colace/miralax. Cont relistor. (3) Metastatic renal cell carcinoma: Patient with diffusely metastatic disease/ progressive carcinomatosis. He follows with Dr Conway at [facility]. Last chemo treatment was 07/15 (immune-based therapy). Next treatment is scheduled for 08/01. Very poor prognosis. Dr Conway spoke with patient at bedside yesterday about options for care. Hospice has been discussed. Patient's pain still ongoing - see above. I am concerned that he may not tolerate visits to the [facility] due to abdominal pain. (4) Anemia: repeat CBC today with Hb about 7.5 Tx if Hb drops to less than 7 (5) CKD (chronic kidney disease): Stage 3 CKD. Stable BMP today. Give IVF (500cc) due to IV contrast load. (6) Hypertension: Controlled on Amlodipine 5mg po daily and Metoprolol 50mg po BID (7) Benign prostatic hyperplasia: cont finasteride cont flomax voiding fine (8) ANN (dyspnea on exertion): CTA chest obtained -- extensive pulmonary mets. likely contributing to ANN. NO PEs seen. NO significant effusions seen, CHF, etc. Abdominal carcinomatosis is severe and likely pushes on diaphragm contributing to dyspnea. NC O2 as needed. (9) DVT prophylaxis: lovenox previously declined psych consult for depressive symptoms lengthy discussion held with pt and his significant other at bedside total time at bedside about 35 minutes total care time today 45 minutes Subjective pt's significant other at bedside. we had lengthy discussion about his ongoing abdominal pain. he admits he does not ask for the pain meds as much as he should. when asked about going back to IV pain meds he declines. he is willing to increase the methadone. he again became tearful during the visit. he wishes to continue chemotherapy for his cancer and asks about his next dose (after [place]). significant other stated the last chemotherapy infusion "was terrible" as he had severe abd pain during that visit. patient feels mildly confused at times and admits to getting mixed up on various medical issues. ate a good lunch today. he does not care if he is not home for [place]. his significant other is working and he would be alone. is agreeable to getting CTA chest to r/o PE today. Review of Systems Constitutional: + fatigue and + anorexia (intermittently); no fever and no chills Respiratory: + dyspnea on exertion; no cough Cardiovascular: no chest pain Gastrointestinal: + abdominal pain and + constipation; no vomiting Psychiatric: + depression Physical Exam Constitutional: + thin and + cachectic; + not well developed, + not well nourished and no acute distress ENMT: external ear and nose normal, oropharynx normal Respiratory: Auscultation: lungs clear to auscultation bilaterally and + diminished lung sounds (bases); no crackles and no wheezes Cardiovascular: Rate/Rhythm: regular rate and regular rhythm Heart Sounds: normal S1 and normal S2; no murmur Vessels: posterior tibial pulses present and dorsalis pedis pulses present; no JVD Extremities: no edema Gastrointestinal (Abdomen): Inspection/Auscultation: + abdomen distended (severe) and normal bowel sounds Percussion/Palpation: abdomen nontender and + abdomen not soft Musculoskeletal: no cyanosis or clubbing, extremities motor strength 5/5 Skin: + pallor Psychiatric: Orientation: alert and oriented x 3 Affect: + tearful affect Results & Data Vital Signs (Past 12 Hours) Vital Signs Temp Pulse Resp BP Pulse Ox 07/26/19 15:23 36.4 C L 83 18 115/69 91 07/26/19 11:29 36.5 C 84 20 116/69 95 Laboratory Results Laboratory Results - last 24 hr 07/26/19 07/26/19 06:48 06:48 WBC 12.28 H RBC 2.87 L Hgb 7.6 L Hct 25.2 L MCV 87.8 MCH 26.5 MCHC 30.2 L RDW Std Deviation 56.2 H RDW Coeff of Mohamud 17.9 H Plt Count 182 MPV 9.6 Absolute Nucleated RBC 0.04 H Nucleated RBC % (auto) 0.4 Sodium 139 Potassium 4.3 Chloride 107 Carbon Dioxide 28 Anion Gap 4.0 BUN 36 H Creatinine 1.68 H Est Cr Clr Drug Dosing 47.1 Est GFR ( Amer) 49.7 Est GFR (Non-Af Amer) 42.9 BUN/Creatinine Ratio 21.5 H Glucose 100 H Calcium 8.4 L PG Care Time/CCT Total # of Minutes Spent Total Time Spent with Patient: Total time spent is greater than 50% in coordination of care (as documented) at patient's floor/unit and/or counseling patient: (1) Metastatic renal cell carcinoma Laterality: unspecified laterality Qualified Code(s): C64.9 - Malignant neoplasm of unspecified kidney, except renal pelvis (2) Anemia Anemia type: unspecified type Qualified Code(s): D64.9 - Anemia, unspecified (3) CKD (chronic kidney disease) Chronic kidney disease stage: unspecified stage Qualified Code(s): N18.9 - Chronic kidney disease, unspecified (4) Hypertension Hypertension type: essential hypertension Qualified Code(s): I10 - Essential (primary) hypertension (5) Benign prostatic hyperplasia Lower urinary tract symptom presence: symptoms absent Qualified Code(s): N40.0 - Benign prostatic hyperplasia without lower urinary tract symptoms
[2019-07-26] MEDS: TAMSULOSIN HCL 0.4 MG CAP PO SCH (20:11)
[2019-07-26] MEDS: ENOXAPARIN INJ 40 MG/0.4 ML SYR SQ SCH (20:11)
[2019-07-27] MEDS: HYDROmorphone HCL 2 MG TAB PO PRN ×3 (04:19→20:19)
[2019-07-27] MEDS: DRONABINOL 2.5 MG CAP PO SCH ×2 (08:10→17:17)
[2019-07-27] MEDS: DOCUSATE SODIUM/SENNA 50/8.6MG TAB PO SCH ×2 (08:11→20:18)
[2019-07-27] MEDS: METHADONE HCL 5 MG TAB PO SCH ×4 (08:12→20:19)
[2019-07-27] MEDS: DOCUSATE SODIUM 100 MG CAP PO PRN (08:12)
[2019-07-27] MEDS: ONDANSETRON 4 MG OD TAB PO PRN ×3 (08:13→20:27)
[2019-07-27] MEDS: METOPROLOL TARTRATE 50 MG TAB PO SCH ×2 (08:13→20:18)
[2019-07-27] MEDS: FINASTERIDE 5 MG TAB PO SCH (08:14)
[2019-07-27] MEDS: POLYETHYLENE (MIRALAX) 17 GM PACK PO SCH (08:14)
[2019-07-27] MEDS: AMLODIPINE BESYLATE 5 MG TAB PO SCH (08:14)
[2019-07-27] MEDS: dexAMETHasone 4 MG TAB PO SCH (08:15)
[2019-07-27] MEDS: METHYLNALTREXONE BROMIDE 12 MG/0.6 ML VIAL SQ SCH (08:31)
--- NOTE | 2019-07-27 16:34 | Hospitalist Progress Note ---
Date of Service July 27, 2019 Assessment & Plan (1) Intractable pain: 2nd progressive metastatic RCC with severe carcinomatosis. Palliative care consult and recs much appreciated. Increased methadone to 10mg TID on 07/26/19 (due to intractable pain on 5mg TID). Cont dilaudid PO prn. Again discussed changing PO dilaudid to RETAIL SERVICE TECHNICIAN dilaudid - still reluctant despite ongoing complaints of severe pain. Remains on decadron as well. Constipation likely contributing to pain. Cannot rule out SBP as he has ascites on imaging. Defer on paracentesis. Focus on pain control. (2) Metastatic renal cell carcinoma: Patient with diffusely metastatic disease/ progressive carcinomatosis. He follows with Dr Conway at [facility]. Last chemo treatment was 07/15 (immune-based therapy). Next treatment is scheduled for 08/01. Very poor prognosis. Dr Conway spoke with patient at bedside 2 days ago about options for care. Hospice has been discussed as well. I am concerned that he may not tolerate visits to the Cancer Center due to abdominal pain. See "intractable pain" for more details. (3) Constipation due to opioid therapy: Cont senna/colace/miralax. Cont relistor q48h. Ongoing issues. (4) Anemia: Hb has fluctuated between about 7.5 and 8.5. Tx if Hb drops to less than 7. Repeat CBC am. (5) CKD (chronic kidney disease): Stage 3 CKD. repeat BMP am. (6) Hypertension: Cont Amlodipine 5mg po daily and Metoprolol 50mg po BID (7) Benign prostatic hyperplasia: cont finasteride cont flomax (8) ANN (dyspnea on exertion): CTA chest obtained 07/26-- extensive pulmonary mets. This is likely biggest factor contributing to ANN. NO PEs seen. NO significant effusions seen, CHF, etc. Abdominal carcinomatosis is severe and likely pushes on diaphragm contributing to dyspnea as well. NC O2 as needed. (9) DVT prophylaxis: lovenox previously declined psych consult for depressive symptoms lengthy discussion held with pt and his significant other at bedside again today I visited him a 2nd time later in day - still declining any change in dilaudid not sure patient is going to do well alone at home (significant other works full-time and thus he will be alone at times) d/w social media director on Sunday Subjective patient had "ok" night. however, upon awakening this am and moving around his pain became severe -- 8- 9/10 on pain scale. we had lengthy discussion about changing PO dilaudid to RETAIL SERVICE TECHNICIAN dilaudid - like previous discussions he wasn't sure. significant other at bedside today. denied any new complaints. Review of Systems Constitutional: no fever Respiratory: + dyspnea on exertion Cardiovascular: no chest pain Gastrointestinal: + abdominal pain, + bloating, + early satiety and + constipation; no nausea Physical Exam Constitutional: + thin and + cachectic; + not well developed, + not well nourished and no acute distress ENMT: external ear and nose normal, oropharynx normal Respiratory: Auscultation: lungs clear to auscultation bilaterally; no crackles and no wheezes Cardiovascular: Rate/Rhythm: regular rate and regular rhythm Heart Sounds: normal S1 and normal S2; no murmur Vessels: posterior tibial pulses present and dorsalis pedis pulses present; no JVD Extremities: no edema Gastrointestinal (Abdomen): Inspection/Auscultation: + abdomen distended (severe) and normal bowel sounds Percussion/Palpation: abdomen nontender and + abdomen not soft able to feel tumor deposits on abdominal wall Musculoskeletal: no cyanosis or clubbing, extremities motor strength 5/5 Skin: + pallor Psychiatric: Orientation: alert and oriented x 3 (but seemed slightly confused) Results & Data Vital Signs (Past 12 Hours) Vital Signs Temp Pulse Resp BP BP Pulse Ox 07/27/19 11:50 37.1 C 77 18 106/68 92 07/27/19 08:31 36.6 C 83 20 125/74 96 PG Care Time/CCT Total # of Minutes Spent Total Time Spent with Patient: Total time spent is greater than 50% in coordination of care (as documented) at patient's floor/unit and/or counseling patient: (1) Metastatic renal cell carcinoma Laterality: unspecified laterality Qualified Code(s): C64.9 - Malignant neoplasm of unspecified kidney, except renal pelvis (2) Anemia Anemia type: unspecified type Qualified Code(s): D64.9 - Anemia, unspecified (3) CKD (chronic kidney disease) Chronic kidney disease stage: unspecified stage Qualified Code(s): N18.9 - Chronic kidney disease, unspecified (4) Hypertension Hypertension type: essential hypertension Qualified Code(s): I10 - Essential (primary) hypertension (5) Benign prostatic hyperplasia Lower urinary tract symptom presence: symptoms absent Qualified Code(s): N40.0 - Benign prostatic hyperplasia without lower urinary tract symptoms
[2019-07-27] MEDS: ENOXAPARIN INJ 40 MG/0.4 ML SYR SQ SCH (20:15)
[2019-07-27] MEDS: TAMSULOSIN HCL 0.4 MG CAP PO SCH (20:18)
[2019-07-28] MEDS: HYDROmorphone HCL 2 MG TAB PO PRN ×3 (01:27→07:57)
[2019-07-28 07:39] LABS: Hematocrit (blood only) 25.4 % (42-52); Hemoglobin 7.5 g/dL (14.0-18.0); Mean Corpuscular Hemoglobin 26.1 pg (25-34); Mean Corpuscular Hgb Conc 29.5 g/dL (32-36); Mean Corpuscular Volume 88.5 fL (80-100); Mean Platelet Volume 9.4 fL (7.4-10.4); Platelet Count 195 K/uL (130-400); RDW Coefficient of Variation 17.9 % (11.5-14.5); RDW Standard Deviation 57.9 fL (36.4-46.3); Red Blood Count 2.87 M/uL (4.7-6.1); White Blood Count 14.97 K/uL (4.8-10.8)
[2019-07-28] MEDS: DRONABINOL 2.5 MG CAP PO SCH ×2 (07:45→17:14)
[2019-07-28 08:03] LABS: BUN Creatinine Ratio 20.7 (10-20); Calcium 8.8 mg/dl (8.5-10.1); Creatinine Clr Calc Pharmacy 34.8 ml/min; Est GFR (African American) 34.5; Est GFR (Non-African American) 29.8; Magnesium 2.1 mg/dl (1.8-2.4); Potassium 4.8 mmol/L (3.5-5.1)
[2019-07-28] MEDS: DOCUSATE SODIUM/SENNA 50/8.6MG TAB PO SCH ×2 (08:29→20:35)
[2019-07-28] MEDS: FINASTERIDE 5 MG TAB PO SCH (08:29)
[2019-07-28] MEDS: AMLODIPINE BESYLATE 5 MG TAB PO SCH (08:29)
[2019-07-28] MEDS: dexAMETHasone 4 MG TAB PO SCH (08:29)
[2019-07-28] MEDS: METOPROLOL TARTRATE 50 MG TAB PO SCH ×2 (08:29→20:35)
[2019-07-28] MEDS: METHADONE HCL 5 MG TAB PO SCH ×2 (08:29→20:33)
[2019-07-28] MEDS: POLYETHYLENE (MIRALAX) 17 GM PACK PO SCH (08:30)
[2019-07-28] MEDS: ONDANSETRON 4 MG OD TAB PO PRN ×2 (08:42→20:43)
[2019-07-28] MEDS: bisacodyL 10 MG SUPP PR PRN (10:07)
[2019-07-28] MEDS ORDERED: SODIUM CHLORIDE 0.9% 1000ML 1,000 ML IV SCH (11:15)
--- NOTE | 2019-07-28 16:09 | Palliative Care Progress Note ---
Date of Service July 28, 2019 Assessment & Plan (1) Cancer related pain: Pain with improved control-patient now with myoclonic jerking, will decrease his methadone to 10 mg twice daily. Continue Dilaudid as needed. (2) Constipation: Partially due to opioids, may also have a component of obstruction due to carcinomatosis-encourage patient to ambulate more, continue PRN Relistor every 48 hours (3) Metastatic renal cell carcinoma: -Patient plan for second dose of Keytruda on 08/01-further plans per oncology Continue-Decadron 4 mg daily (4) Anemia: Hemoglobin 7.5-transfuse as per attending team. Subjective Patient awake and alert, no acute distress. Patient's fianc and 2 friends at bedside. Patient reports improved pain control-continues to require 4 doses of PRN Dilaudid in 24 hours. Patient's methadone was increased on 07/26. Patient began having episodes myotonic jerking-sign of opioid toxicity. We will decrease his methadone to 10 mg twice daily and continue current dose of Dilaudid. Myoclonic jerks are starting to improve. Patient has not moved his bowels since 07/23 despite Relistor. Absent bowel sounds on exam. Patient's hemoglobin is now 7.5, creatinine is increasing to 2.27. Patient's fianc and friends remain angry regarding not finding the metastatic disease earlier or more aggressive treatment given when diagnosis. Patient becomes tearful at times. Despite improved pain control, patient is not ambulating very much-encouraged him to increase ambulation to help stimulate his bowels. Patient's lower extremity edema appears to be increasing. Review of Systems Review of Systems: Patient denies fever, chills, chest pain, shortness of breath, or worsening abdominal pain. Positive for poor appetite and constipation Physical Exam Physical Exam: PE: Patient appears comfortable at rest, lying in bed HEENT: EOMI, hearing within normal limits Respirations: Unlabored CV: Regular rate, increased lower extremity edema Abdomen: Distended, firm, less tender with palpation Neuro: Alert and oriented x4 Results & Data Vital Signs (Past 12 Hours) Vital Signs Temp Pulse Resp BP BP Pulse Ox 07/28/19 11:40 98.2 F 78 18 107/66 90 07/28/19 07:33 97.9 F 89 18 111/71 90 PG Care Time/CCT Total # of Minutes Spent Total Time Spent with Patient: Total time spent is greater than 50% in coordination of care (as documented) at patient's floor/unit and/or counseling patient: (1) Metastatic renal cell carcinoma Laterality: unspecified laterality Qualified Code(s): C64.9 - Malignant neoplasm of unspecified kidney, except renal pelvis
--- NOTE | 2019-07-28 17:47 | Hospitalist Progress Note ---
Date of Service July 28, 2019 Assessment & Plan (1) Intractable pain: - Related to progressive metastatic RCC with severe carcinomatosis - Continue Methadone 10 mg BID and Dilaudid for breakthrough - dosage reduced due to myoclonic jerking likely caused by Methadone/Dilaudid combination - Continue Decadron 4 mg daily - Follows with Dr. Conway - next dose of Keytruda on 08/01 - Afebrile, mild leukocytosis which could be from steroid - unlikely SBP but does have ascites on imaging - defer on paracentesis at this time (2) Metastatic renal cell carcinoma: - Evidence of diffusely metastatic disease/progressive carcinomatosis - Next Keytruda on 08/01 (3) Constipation due to opioid therapy: - Last BM 07/23 - Continue Senna/Colace and Miralax - Relistor Q48H - Discussed possible KUB but patient would like to hold on this - given carcinomatosis will need to monitor for obstruction - Completed suppository today - consider possible Lactulose tomorrow (4) Anemia: - Chronic - has been continuing to trend down - average between 7.5-8.5 currently - Continue to monitor - transfuse if < 7 (5) CKD (chronic kidney disease): - Acute kidney injury superimposed on stage III CKD - Cr increased to 2.27 - possible prerenal given poor intake vs some obstructive component given prostate and carcinomatosis? - Gently hydration x 1 bag and recheck BMP in AM (6) Hypertension: - Amlodipine 5 mg daily and Metoprolol 50 mg BID (7) Benign prostatic hyperplasia: - Continue Finasteride 5 mg daily and Flomax 0.4 mg daily' (8) ANN (dyspnea on exertion): - CTA with extensive pulmonary mets - likely the biggest factor contributing to ANN but possibly also related to carcinomatosis/distension impacting diaphragmatic expansion (9) DVT prophylaxis: - Lovenox Disposition: Continue to work with bowel regimen as he would be risk for obstructive problems; monitor pain tolerance and reassess renal function; hopefully home in next coming days Subjective Reports pain is a little better today but comes and goes. No experiencing myoclonic jerking and will see if this improves with lower dosing of Metha done/Dilaudid.Still no BM even with Relistor and will continue to monitor and implement bowel regimen. Did ambulate the halls this afternoon when I rechecked him. Appetite remains poor. Reports breathing overall is okay but does have intermittent SOB. Did have a rise in renal function from baseline and will gently hydrate. Review of Systems Constitutional: + fatigue and + anorexia; no fever and no chills Respiratory: + dyspnea on exertion; no cough and no pain on inspiration Cardiovascular: + lightheadedness (episode with ambulating - currently resolved) and + edema (b/l lower extremities); no chest pain Gastrointestinal: + abdominal pain, + bloating, + early satiety and + constipation; no nausea and no vomiting Genitourinary: no dysuria Integumentary: no rash Physical Exam Constitutional: + frail appearing; no acute distress Eyes: + anicteric sclerae ENMT: Ears: no hearing impairment Neck: trachea midline Respiratory: normal respiratory effort, lungs clear to auscultation normal respiratory effort Cardiovascular: Rate/Rhythm: regular rate and regular rhythm Heart Sounds: no murmur Extremities: + edema (b/l ankles) Gastrointestinal (Abdomen): Inspection/Auscultation: + abdomen distended; + abnormal bowel sounds (hypoactive) Percussion/Palpation: abdomen nontender Musculoskeletal: Head/Neck/Chest: normocephalic and head atraumatic Skin: no rashes, warm and dry Neurologic: moves all extremities Psychiatric: Orientation: alert and oriented x 3 Results & Data Vital Signs (Past 12 Hours) Vital Signs Temp Pulse Resp BP BP Pulse Ox 07/28/19 11:40 36.8 C 78 18 107/66 90 07/28/19 07:33 36.6 C 89 18 111/71 90 PG Care Time/CCT Total # of Minutes Spent Total Time Spent with Patient: Total time spent is greater than 50% in coordination of care (as documented) at patient's floor/unit and/or counseling patient: (1) Metastatic renal cell carcinoma Laterality: unspecified laterality Qualified Code(s): C64.9 - Malignant neoplasm of unspecified kidney, except renal pelvis (2) Anemia Anemia type: unspecified type Qualified Code(s): D64.9 - Anemia, unspecified (3) CKD (chronic kidney disease) Chronic kidney disease stage: unspecified stage Qualified Code(s): N18.9 - Chronic kidney disease, unspecified (4) Hypertension Hypertension type: essential hypertension Qualified Code(s): I10 - Essential (primary) hypertension (5) Benign prostatic hyperplasia Lower urinary tract symptom presence: symptoms absent Qualified Code(s): N40.0 - Benign prostatic hyperplasia without lower urinary tract symptoms
[2019-07-28] MEDS: ENOXAPARIN INJ 40 MG/0.4 ML SYR SQ SCH (20:32)
[2019-07-28] MEDS: TAMSULOSIN HCL 0.4 MG CAP PO SCH (20:33)
[2019-07-29] MEDS: HYDROmorphone HCL 2 MG TAB PO PRN (01:14)
[2019-07-29 06:56] LABS: Hematocrit (blood only) 25.2 % (42-52); Hemoglobin 7.6 g/dL (14.0-18.0); Mean Corpuscular Hemoglobin 26.6 pg (25-34); Mean Corpuscular Hgb Conc 30.2 g/dL (32-36); Mean Corpuscular Volume 88.1 fL (80-100); Mean Platelet Volume 8.8 fL (7.4-10.4); Nucleated RBC # (auto) 0.04 K/uL (0-0); Nucleated RBC % (auto) 0.3 %; Platelet Count 195 K/uL (130-400); Red Blood Count 2.86 M/uL (4.7-6.1); White Blood Count 14.22 K/uL (4.8-10.8)
[2019-07-29 07:33] LABS: Calcium 8.7 mg/dl (8.5-10.1); Creatinine Clr Calc Pharmacy 34.4 ml/min; Est GFR (Non-African American) 29.3; Potassium 4.3 mmol/L (3.5-5.1)
[2019-07-29] MEDS: POLYETHYLENE (MIRALAX) 17 GM PACK PO SCH (07:54)
[2019-07-29] MEDS: AMLODIPINE BESYLATE 5 MG TAB PO SCH (07:55)
[2019-07-29] MEDS: METOPROLOL TARTRATE 50 MG TAB PO SCH ×2 (07:55→20:09)
[2019-07-29] MEDS: dexAMETHasone 4 MG TAB PO SCH (07:55)
[2019-07-29] MEDS: FINASTERIDE 5 MG TAB PO SCH (07:56)
[2019-07-29] MEDS: DOCUSATE SODIUM/SENNA 50/8.6MG TAB PO SCH (07:56)
[2019-07-29] MEDS: METHYLNALTREXONE BROMIDE 12 MG/0.6 ML VIAL SQ SCH (07:57)
[2019-07-29] MEDS: METHADONE HCL 5 MG TAB PO SCH ×2 (08:13→20:08)
[2019-07-29] MEDS: ONDANSETRON 4 MG OD TAB PO PRN ×2 (08:13→16:11)
[2019-07-29] MEDS: DRONABINOL 2.5 MG CAP PO SCH ×2 (08:13→16:07)
--- NOTE | 2019-07-29 09:55 | Nephrology Consultation ---
Date of Consultation July 29, 2019 Assessment & Plan (1) Acute kidney injury: Jordan developed acute kidney injury with progressive worsening of renal function setting stage IV metastatic renal cell carcinoma and recent immunotherapy. Concern for acute interstitial nephritis with CPI Remains. --repeat UA, renal panel in a.m. --if urinalysis showed persistent pyuria without any evidence of bacteriuria, will consider starting on prednisone as considering the aggressive nature the disease he may need to continue on the immunotherapy. --however, overall prognosis unfortunately remains extremely poor --encourage p.o. intake as much as possible Will follow Thank you for allowing me to participate in your patient's care. It was a pleasure to see Jordan (2) Metastatic renal cell carcinoma: (3) Anemia: History of Present Illness Reason for Consultation: Acute kidney injury with history of metastatic renal cell carcinoma. Attending Physician: Roscoe Feldman History of Present Illness Jordan was admitted to hospital on 07/21/2019 with intractable abdominal pain in the setting of metastatic renal cell carcinoma. He developed acute kidney injury with progressive worsening of renal function over last 10 days. On admission creatinine was 1.5 on 07/10/19, 1/7 on 07/16/19 , the day after first dose of chemo which progressively worsened creatinine was 2.3 this morning. Baseline creatinine prior to these was 1.1-1.2. His Electrolyte acceptable. Urinalysis positive for low-grade proteinuria and pyuria but no hematuria. CT abdomen pelvis on admission showed chronic bladder outlet obstruction but no right-sided hydronephrosis. He was diagnosed with renal cell carcinoma in April 2019 and had left nephrectomy on 04/22/2019. As part of evaluation for chronic dry cough for almost a year he had a chest CT on 04/09/19 which was unremarkable for any pulmonary pathology but incidentally noticed a large mass in his left upper abdomen. CT A/P revealed a very large mass arising near the site of his left kidney and occupying much of the volume of his abdomen. 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 The tumor was contained entirely within the kidney and all the margins were negative. He did well post-operatively, but developed worsening abdominal pain starting a few weeks post-op and CT A/P on 07/01 revealed evidence of multiple abdominal masses highly suspicious for malignancy. He also had a chest CT that revealed some lung masses. He was started on in monotherapy, received first dose of Nivolumab and Ipilimumab on 07/15/19 and next dose was due for August 01. He denies any family history of renal cell carcinoma, chronic kidney disease or end-stage renal disease. He is a nonsmoker. He has never , lives alone, was working in [employer]. He has been voiding normally however feels like abdomen slowly getting more and more distended. Appetite is poor. Denies any shortness of breath or chest pain. Allergies Allergy/AdvReac Type Severity Reaction Status Date / Time No Known Allergies Allergy Verified 07/21/19 16:05 Home Medications Home Medications Medication Instructions Recorded Confirmed Type amlodipine 5 mg tablet 5 mg PO QAM #30 tab 05/15/19 07/21/19 Rx metoprolol tartrate 50 mg tablet 50 mg PO BID #60 tab 05/15/19 07/21/19 Rx tamsulosin 0.4 mg capsule 0.4 mg PO QPM #30 cap 05/15/19 07/21/19 Rx ferrous sulfate 325 mg PO Q2D@0700 #30 tab 07/06/19 07/21/19 Rx morphine 15 mg PO Q8H #120 tab 07/06/19 07/21/19 Rx polyethylene glycol 3350 [Miralax] 17 g PO DAILY #30 ea 07/06/19 07/21/19 Rx sennosides-docusate sodium 1 tab PO BID #30 tab 07/06/19 07/21/19 Rx [Senokot-S] dutasteride [Avodart] 0.5 mg PO DAILY 07/17/19 07/21/19 History oxycodone 5 mg PO Q2H PRN 07/17/19 07/21/19 History dronabinol 5 mg PO BID #60 cap 07/25/19 Rx Patient History Medical History BPH (benign prostatic hyperplasia) Cancer of kidney Left Kidney and tumors removed. However, tumors have grown back where left kidney was Cancer related pain Chromophobe renal cell carcinoma (Chronic) Hypertension Hypertension (Chronic) Renal neoplasm (Chronic) S/p nephrectomy left nephrectomy Surgical History History of left radical nephrectomy 04/22/2019 Hx of right inguinal hernia repair x2 Social History Preferred Language: Welsh Communication Ability: Effective Station Baggage Porter Required: No Beliefs That Will Affect Care: None marital status: Current Living Situation: Significant Other current occupational status: employed current occupation: [employer] Other Information That Helps Us Care for You: No Feels Safe at Home: Yes Safety Concerns: Feels Safe At This Time Smoking Status: Never smoker Second Hand Exposure: No ; Hx Alcohol Use: No Hx Substance Use: No Seatbelt Use: never Review of Systems Review of Systems: All systems reviewed & are unremarkable except as noted in HPI & below Physical Exam Constitutional: + ill appearing, + lethargic and + malnourished; no acute distress Eyes: PERRL, conjunctivae normal, anicteric sclerae ENMT: external ear and nose normal, oropharynx normal Ears: no hearing impairment Neck: trachea midline Respiratory: normal respiratory effort, lungs clear to auscultation no cough Auscultation: no crackles, no rales and no wheezes Cardiovascular: RRR, no murmur, no edema Gastrointestinal (Abdomen): Inspection/Auscultation: + abdomen distended and normal bowel sounds Percussion/Palpation: + abdomen tender Musculoskeletal: Extremities: extremities normal to inspection Gait: normal gait Skin: no rashes, warm and dry Neurologic: moves all extremities and awake Psychiatric: Orientation: alert and oriented x 3 Affect: + depressed affect Results & Data Vital Signs (Past 12 Hours) Vital Signs Temp Pulse Resp BP BP Pulse Ox 07/29/19 07:55 112/71 07/29/19 07:25 36.5 C 93 H 17 108/80 90 07/29/19 04:00 36.5 C 82 18 121/64 93 07/29/19 00:00 36.6 C 80 18 106/65 93 PG Care Time/CCT Total # of Minutes Spent Total Time Spent with Patient: Total time spent is greater than 50% in coordination of care (as documented) at patient's floor/unit and/or counseling patient:
--- NOTE | 2019-07-29 16:44 | Palliative Care Progress Note ---
Date of Service July 29, 2019 Assessment & Plan (1) Cancer related pain: Pain with improved control-patient with myoclonic jerking when methadone increased to 30 mg daily, improved with decrease in methadone to 10 mg twice daily. Continue Dilaudid as needed. (2) Constipation: Partially due to opioids, may also have a component of obstruction due to carcinomatosis-encourage patient to ambulate more, continue PRN Relistor every 48 hours (3) Metastatic renal cell carcinoma: -Patient plan for second dose of Keytruda on 08/01-further plans per oncology Continue-Decadron 4 mg daily (4) Anemia: Hemoglobin stable at 7.6 Subjective Patient seen and examined, Madeline Brenner PA-C present during exam. Patient's fianc arrived towards the end of visit. Patient reports his pain control is improved-very little myoclonic jerking since decreasing his methadone. Again discussed at length importance of patient ambulating as much as tolerated to help keep bowels moving. Patient reports he did move his bowel "a couple of times" today after receiving Relistor. Patient required 3 as needed doses of p.o. Dilaudid in the past 24 hours. Patient does report alteration in taste sensation-we will consider discontinuing his senna S and starting Biotene for dry mouth. Patient's hemoglobin remained stable at 7.6, patient's creatinine no longer increasing-remaining at 2.3 Review of Systems Review of Systems: Patient denies fever, chills, chest pain, increased shortness of breath, or worsening abdominal pain. Positive for continued lower extremity edema and constipation Physical Exam Physical Exam: PE: Awake and alert, no acute distress HEENT: EOMI, hearing within normal limits Respirations: Unlabored CV: Regular rate, positive bilateral lower extremity edema Abdomen: Distended, firm, nontender to light palpation, diminished bowel sounds Neuro: Alert and oriented x4 Results & Data Vital Signs (Past 12 Hours) Vital Signs Temp Pulse Resp BP Pulse Ox 07/29/19 15:34 98.6 F 81 18 125/67 92 07/29/19 11:14 98.2 F 76 18 110/64 95 07/29/19 07:55 112/71 07/29/19 07:25 97.7 F 93 H 17 108/80 90 PG Care Time/CCT Total # of Minutes Spent Total Time Spent with Patient: Total time spent is greater than 50% in coordination of care (as documented) at patient's floor/unit and/or counseling patient: (1) Metastatic renal cell carcinoma Laterality: unspecified laterality Qualified Code(s): C64.9 - Malignant neoplasm of unspecified kidney, except renal pelvis
[2019-07-29 18:36] LABS: Appearance Urine Turbid (Clear); Bilirubin Urine Negative (Negative); Blood Urine Trace (Negative); Color Urine Yellow; Epithelial Cell Urine Auto >30 /lpf (0-5); Glucose Urine UA Negative (Negative); Ketones Urine Negative (Negative); Leukocyte Esterase Urine Negative (Negative); Nitrite Urine Negative (Negative); Protein Urine 1+ (Negative); RBC Urine Automated 0-4 /hpf (0-4); Urobilinogen Urine Negative (Negative)
[2019-07-29 18:47] LABS: Uric Acid Crystals Urine Present (None Prsent)
[2019-07-29 18:49] LABS: Bacteria Urine Automated 2+ (Negative); Cast Urine Automated 0 /lpf (0-5)
[2019-07-29 18:53] LABS: Protein Creatinine Ratio Urine 1.3 (0-0.2)
--- NOTE | 2019-07-29 19:04 | Hospitalist Progress Note ---
Date of Service July 29, 2019 Assessment & Plan (1) Intractable pain: - Related to progressive metastatic RCC with severe carcinomatosis; tumor burden is significant and likely causing an element of obstruction but still moving bowels a bit but concern would be for future obstruction given the tumor burden - Continue Methadone 10 mg BID and Dilaudid for breakthrough - dosage reduced due to myoclonic jerking likely caused by Methadone/Dilaudid combination which seems to be improving today - Continue Decadron 4 mg daily - Follows with Dr. Conway - next dose of Keytruda on 08/01 - Afebrile, mild leukocytosis which could be from steroid - unlikely SBP but does have ascites on imaging but is small - defer on paracentesis at this time -- Will add procalcitonin to further assess (2) Metastatic renal cell carcinoma: - Evidence of diffusely metastatic disease/progressive carcinomatosis - Next Keytruda on 08/01 (3) Constipation due to opioid therapy: - Last BM 07/29 - Continue Miralax -- Trial off Senna as maybe contributing to taste issues? - Relistor Q48H - Discussed possible KUB but patient would like to hold on this - given carcinomatosis will need to monitor for obstruction (4) Anemia: - Chronic - has been continuing to trend down - average between 7.5-8.5 currently - Continue to monitor - transfuse if < 7 (5) CKD (chronic kidney disease): - Acute kidney injury superimposed on stage III CKD - Cr increased to 2.27 - possible prerenal given poor intake vs some obstructive component given prostate and carcinomatosis - Did consult nephrology given patient's only one kidney - possibly interstitial nephritis? urinalysis/studies ordered; patient did have IV contrast a few days prior but was given fluids to help balance this? (6) Hypertension: - Amlodipine 5 mg daily and Metoprolol 50 mg BID (7) Benign prostatic hyperplasia: - Continue Flomax 0.4 mg daily - states he was prescribe Avodart but it was too expensive and never started these medications - will remove this to reduce pill burden (8) ANN (dyspnea on exertion): - CTA with extensive pulmonary mets - likely the biggest factor contributing to ANN but possibly also related to carcinomatosis/distension impacting diaphragmatic expansion - Given Keytruda will need to monitor for pulmonary issues - unlikely this is the cause as he is only one dose in (9) DVT prophylaxis: - Lovenox Disposition: Possibly home tomorrow; will reassess labs ultimate goal will be to have him home for next cancer treatment Subjective Reports pain is "so-so" today. Appears to be worse in the AM. States pain is reduced if he doesn't move as much. As well as breathing is easier at rest. Continues to have difficulty eating due to foods/drinks not tasting good. It is uncertain why this is occurring. Also having a lot of dry mouth which could be impacting eating/tasting. Having a couple small bowel movements but not too sign ificant at this point. Verbalizes no new complaints at this time. Review of Systems Constitutional: + fatigue and + anorexia; no fever and no chills Ear, Nose, Mouth, Throat: no sore throat poor taste with foods/drinks; irritation of mouth Respiratory: + dyspnea on exertion; no cough and no pain on inspiration Cardiovascular: + lightheadedness (episode with ambulating - currently resolved) and + edema (b/l lower extremities); no chest pain Gastrointestinal: + abdominal pain, + bloating, + early satiety and + constipation; no nausea and no vomiting Psychiatric: + depression Physical Exam Constitutional: WD/WN, vitals as above + frail appearing; no acute distress Eyes: + anicteric sclerae ENMT: Ears: no hearing impairment No obvious oral lesions/ulcerations Neck: trachea midline Respiratory: normal respiratory effort, lungs clear to auscultation Cardiovascular: Rate/Rhythm: regular rate and regular rhythm Heart Sounds: no murmur Extremities: + edema (b/l ankles) Gastrointestinal (Abdomen): Inspection/Auscultation: + abdomen distended; + abnormal bowel sounds (hypoactive) Percussion/Palpation: abdomen nontender Musculoskeletal: Head/Neck/Chest: normocephalic and head atraumatic Skin: no rashes, warm and dry Neurologic: moves all extremities Psychiatric: Orientation: alert and oriented x 3 Results & Data Vital Signs (Past 12 Hours) Vital Signs Temp Pulse Resp BP Pulse Ox 07/29/19 15:34 37.0 C 81 18 125/67 92 07/29/19 11:14 36.8 C 76 18 110/64 95 07/29/19 07:55 112/71 07/29/19 07:25 36.5 C 93 H 17 108/80 90 PG Care Time/CCT Total # of Minutes Spent Total Time Spent with Patient: Total time spent is greater than 50% in coordination of care (as documented) at patient's floor/unit and/or counseling patient: (1) Benign prostatic hyperplasia Lower urinary tract symptom presence: symptoms absent Qualified Code(s): N40.0 - Benign prostatic hyperplasia without lower urinary tract symptoms (2) Anemia Anemia type: unspecified type Qualified Code(s): D64.9 - Anemia, unspecified (3) CKD (chronic kidney disease) Chronic kidney disease stage: unspecified stage Qualified Code(s): N18.9 - Chronic kidney disease, unspecified (4) Metastatic renal cell carcinoma Laterality: unspecified laterality Qualified Code(s): C64.9 - Malignant neoplasm of unspecified kidney, except renal pelvis (5) Hypertension Hypertension type: essential hypertension Qualified Code(s): I10 - Essential (primary) hypertension
[2019-07-29] MEDS ORDERED: BENZOCAINE 20% (ORAJEL) 11.9 GM TUBE MT PRN (19:14)
[2019-07-29] MEDS: ENOXAPARIN INJ 40 MG/0.4 ML SYR SQ SCH (20:09)
[2019-07-29] MEDS: TAMSULOSIN HCL 0.4 MG CAP PO SCH (20:09)
[2019-07-30] MEDS: HYDROmorphone HCL 2 MG TAB PO PRN (00:02)
[2019-07-30 07:06] LABS: Albumin Level 2.2 gm/dl (3.4-5.0); BUN Creatinine Ratio 22.1 (10-20); Calcium 8.7 mg/dl (8.5-10.1); Creatinine Clr Calc Pharmacy 37.1 ml/min; Est GFR (African American) 37.3; Est GFR (Non-African American) 32.2; Phosphorus 3.5 mg/dl (2.5-4.9); Potassium 4.2 mmol/L (3.5-5.1)
[2019-07-30] MEDS: DRONABINOL 2.5 MG CAP PO SCH ×2 (07:36→16:41)
[2019-07-30] MEDS: dexAMETHasone 4 MG TAB PO SCH (07:37)
[2019-07-30] MEDS: METOPROLOL TARTRATE 50 MG TAB PO SCH ×2 (07:37→20:43)
[2019-07-30] MEDS: AMLODIPINE BESYLATE 5 MG TAB PO SCH (07:37)
[2019-07-30] MEDS: POLYETHYLENE (MIRALAX) 17 GM PACK PO SCH (07:37)
[2019-07-30] MEDS: METHADONE HCL 5 MG TAB PO SCH ×2 (07:43→20:39)
[2019-07-30] MEDS ORDERED: cefTRIAXone SODIUM 1,000 MG in DEXTROSE 5% 50 ML IV SCH (08:30)
--- NOTE | 2019-07-30 10:24 | Nephrology Progress Note ---
Date of Service July 30, 2019 Assessment & Plan (1) Acute kidney injury: Jordan developed acute kidney injury with progressive worsening of renal function setting stage IV metastatic renal cell carcinoma, recent IV contrast exposure and recent immunotherapy. Concern for acute interstitial nephritis with CPI, RYLEE or hemodynamically mediated KIRILL Creatinine slightly improved to 2.1 today, electrolyte acceptable. Repeat UA with no pyuria or bacteriuria. --will hold off on steroid as renal functions seems to have started to improve --recommend inpatient consult with Oncology regarding decision about next immunotherapy, in light of acute kidney injury. --however, overall prognosis unfortunately remains extremely poor --encourage p.o. intake as much as possible Will follow (2) Metastatic renal cell carcinoma: (3) Anemia: Subjective Jordan Was seen and examined in his room this morning. Feels about the same, appetite remains poor. Pain better controlled however worsened with any kind of activity. No shortness of breath at baseline however difficult to take deep breath and NC O2 did not really help. Blood pressure well controlled. Has been voiding normally although not recorded in EMR. Review of Systems Review of Systems: All systems reviewed & are unremarkable except as noted in HPI & below Physical Exam Constitutional: + ill appearing, + lethargic and + malnourished; no acute distress Respiratory: normal respiratory effort, lungs clear to auscultation no cough Auscultation: no crackles, no rales and no wheezes Cardiovascular: Rate/Rhythm: regular rate and regular rhythm Heart Sounds: normal S1 and normal S2 Extremities: + edema (2+ bilateral lower extremity edema.) Skin: no rashes, warm and dry Neurologic: moves all extremities and awake Psychiatric: Orientation: alert and oriented x 3 Affect: + depressed affect Results & Data Vital Signs (Past 12 Hours) Vital Signs Temp Pulse Pulse Pulse Pulse Resp Resp 07/30/19 09:48 82 80 81 18 07/30/19 06:29 36.7 C 92 H 18 07/29/19 23:06 36.7 C 70 20 Resp Resp BP Pulse Ox Pulse Ox Pulse Ox Pulse Ox 07/30/19 09:48 18 18 92 94 96 07/30/19 06:29 118/64 92 07/29/19 23:06 110/62 95 PG Care Time/CCT Total # of Minutes Spent Total Time Spent with Patient: Total time spent is greater than 50% in coordination of care (as documented) at patient's floor/unit and/or counseling patient:
--- NOTE | 2019-07-30 17:14 | Hospitalist Progress Note ---
Date of Service July 30, 2019 Assessment & Plan (1) Intractable pain: - Related to progressive metastatic RCC with severe carcinomatosis; tumor burden is significant and likely causing an element of obstruction but still moving bowels a bit but concern would be for future obstruction given the tumor burden - Continue Methadone 10 mg BID and Dilaudid for breakthrough - dosage reduced due to myoclonic jerking likely caused by Methadone/Dilaudid combination which seems to be improving today - Continue Decadron 4 mg daily - Follows with Dr. Conway - next treatment on 08/01 - Afebrile, mild leukocytosis which could be from steroid; repeat UA with 2+ bacteria but likely contaminant as cx with minimal growth and no urinary symptoms - Discussed consideration for paracentesis - uncertain if this will help his breathing or pain - but possible depending of extent of ascites - patient wasn't sure at this time and will discuss further (2) Metastatic renal cell carcinoma: - Evidence of diffusely metastatic disease/progressive carcinomatosis - Also likely contributing to lower extremity edema from IVC compression? - Next treatment on 08/01 (3) Constipation due to opioid therapy: - Last BM 07/29 - Continue Miralax -- Trial off Senna as maybe contributing to taste issues? - Relistor Q48H - Discussed possible KUB but patient would like to hold on this - given carcinomatosis will need to monitor for obstruction (4) Anemia: - Chronic - has been continuing to trend down - average between 7.5-8.5 currently - Continue to monitor - transfuse if < 7 (5) CKD (chronic kidney disease): - Acute kidney injury superimposed on stage III CKD - Cr increased to 2.27 and now trending down - Did consult nephrology given patient only has one kidney - possibly interstitial nephritis with CPI, RYLEE, or hemodynamically mediated KIRILL (6) Hypertension: - Amlodipine 5 mg daily and Metoprolol 50 mg BID - BP has been well controlled and patient would like to reduce pill burden - could consider removal of these medications but would have to monitor for any rebound issues (7) Benign prostatic hyperplasia: - Continue Flomax 0.4 mg daily - states he was prescribe Avodart but it was too expensive and never started these medications (8) ANN (dyspnea on exertion): - CTA with extensive pulmonary mets - likely the biggest factor contributing to ANN but possibly also related to carcinomatosis/distension impacting diaphragmatic expansion as above did discuss possible paracentesis to see if this could help - Performed two step and no desaturations noted (9) DVT prophylaxis: - Lovenox Disposition: Possibly home tomorrow; will need Rx for Methadone; would like to get to next treatment on Sunday but will not have assistance until afternoon on 07/31 Subjective Reports his symptoms are about the same. He states the mornings are worse for him. States when he wakes up he struggles with not being able to take deep breaths which makes him feel horrible. He states as the day goes on he seems to do better. States he feels best when he is sleeping and completely resting and is tearful when discussing this. Did perform a two step but does not qualify for oxygen at this time. Did discuss considering a paracentesis to see if this could help but he was unsure if this is what he would want to do. Review of Systems Constitutional: + fatigue and + anorexia; no fever and no chills Ear, Nose, Mouth, Throat: poor taste with foods/drinks Respiratory: + dyspnea on exertion; no cough and no pain on inspiration Cardiovascular: + edema (b/l lower extremities); no chest pain Gastrointestinal: + abdominal pain, + bloating, + early satiety and + constipation; no nausea and no vomiting Integumentary: no rash Physical Exam Constitutional: WD/WN, vitals as above + frail appearing; no acute distress Eyes: + anicteric sclerae ENMT: Ears: no hearing impairment Neck: trachea midline Respiratory: normal respiratory effort, lungs clear to auscultation Cardiovascular: Rate/Rhythm: regular rate and regular rhythm Heart Sounds: no murmur Extremities: + edema (b/l ankles) Gastrointestinal (Abdomen): Inspection/Auscultation: + abdomen distended; + abnormal bowel sounds (hypoactive) Percussion/Palpation: abdomen nontender Musculoskeletal: Head/Neck/Chest: normocephalic and head atraumatic Skin: no rashes, warm and dry Neurologic: moves all extremities Psychiatric: Orientation: alert and oriented x 3 Results & Data Vital Signs (Past 12 Hours) Vital Signs Temp Pulse Pulse Pulse Pulse Resp Resp 07/30/19 15:04 36.8 C 77 19 07/30/19 11:26 36.5 C 78 18 07/30/19 09:48 82 80 81 18 07/30/19 06:29 36.7 C 92 H 18 Resp Resp BP BP Pulse Ox Pulse Ox Pulse Ox 07/30/19 15:04 128/68 90 07/30/19 11:26 98/62 L 91 07/30/19 09:48 18 18 92 94 07/30/19 06:29 118/64 92 Pulse Ox 07/30/19 15:04 07/30/19 11:26 07/30/19 09:48 96 07/30/19 06:29 PG Care Time/CCT Total # of Minutes Spent Total Time Spent with Patient: Total time spent is greater than 50% in c oordination of care (as documented) at patient's floor/unit and/or counseling patient: (1) Benign prostatic hyperplasia Lower urinary tract symptom presence: symptoms absent Qualified Code(s): N40.0 - Benign prostatic hyperplasia without lower urinary tract symptoms (2) Anemia Anemia type: unspecified type Qualified Code(s): D64.9 - Anemia, unspecified (3) CKD (chronic kidney disease) Chronic kidney disease stage: unspecified stage Qualified Code(s): N18.9 - Chronic kidney disease, unspecified (4) Metastatic renal cell carcinoma Laterality: unspecified laterality Qualified Code(s): C64.9 - Malignant neoplasm of unspecified kidney, except renal pelvis (5) Hypertension Hypertension type: essential hypertension Qualified Code(s): I10 - Essential (primary) hypertension
[2019-07-30] MEDS: ENOXAPARIN INJ 40 MG/0.4 ML SYR SQ SCH (20:39)
[2019-07-30] MEDS: TAMSULOSIN HCL 0.4 MG CAP PO SCH (20:40)
[2019-07-31 07:01] LABS: Albumin Level 2.1 gm/dl (3.4-5.0); BUN Creatinine Ratio 25.9 (10-20); Calcium 8.7 mg/dl (8.5-10.1); Est GFR (African American) 44.5; Est GFR (Non-African American) 38.4; Potassium 4.2 mmol/L (3.5-5.1)
[2019-07-31 07:03] LABS: Phosphorus 3.6 mg/dl (2.5-4.9); Uric Acid 11.5 mg/dl (2.6-7.2)
[2019-07-31] MEDS: METHADONE HCL 5 MG TAB PO SCH ×2 (08:04→20:16)
[2019-07-31] MEDS: METOPROLOL TARTRATE 50 MG TAB PO SCH ×2 (08:04→20:18)
[2019-07-31] MEDS: DRONABINOL 2.5 MG CAP PO SCH ×2 (08:04→17:07)
[2019-07-31] MEDS: AMLODIPINE BESYLATE 5 MG TAB PO SCH (08:04)
[2019-07-31] MEDS: POLYETHYLENE (MIRALAX) 17 GM PACK PO SCH (08:05)
[2019-07-31] MEDS: dexAMETHasone 4 MG TAB PO SCH (08:05)
[2019-07-31] MEDS: METHYLNALTREXONE BROMIDE 12 MG/0.6 ML VIAL SQ SCH (08:05)
[2019-07-31] MEDS: ONDANSETRON 4 MG OD TAB PO PRN (08:15)
--- NOTE | 2019-07-31 11:49 | Nephrology Progress Note ---
Date of Service July 31, 2019 Assessment & Plan (1) Acute kidney injury: KIRILL with progressive worsening of renal function in the setting stage IV metastatic renal cell carcinoma, recent IV contrast exposure and recent immunotherapy. Concern for acute interstitial nephritis with CPI, RYLEE or hemodynamically mediated KIRILL. Renal function has been improving, electrolyte acceptable. Repeat UA with no pyuria or bacteriuria. --will hold off on steroid as renal function continue to improve --Ok to go ahead with immunotherapy as per decision by Oncology --however, overall prognosis unfortunately remains extremely poor --encourage p.o. intake as much as possible --explained to the pt and the pt's nurse as repeated try to reach his significant other ( Sharon [phone] ) was unsuccessful. Will follow (2) Metastatic renal cell carcinoma: (3) Anemia: Varinder Ortega Was seen and examined in his room this morning. Feels about the same, appetite remains poor. No shortness of breath at baseline however difficult to take deep breath and NC O2 did not really help. Blood pressure well controlled. Has been voiding normally although not recorded in EMR. Renal function has been improving. Review of Systems Review of Systems: All systems reviewed & are unremarkable except as noted in HPI & below Physical Exam Constitutional: well developed and well nourished; no acute distress Respiratory: normal respiratory effort, lungs clear to auscultation Cardiovascular: RRR, no murmur, no edema Neurologic: moves all extremities and awake; not confused Psychiatric: A+Ox3, euthymic affect Results & Data Vital Signs (Past 12 Hours) Vital Signs Temp Pulse Pulse Resp BP Pulse Ox 07/31/19 07:30 36.6 C 84 18 110/68 94 07/31/19 04:25 36.8 C 82 17 121/67 97 PG Care Time/CCT Total # of Minutes Spent Total Time Spent with Patient: Total time spent is greater than 50% in coordination of care (as documented) at patient's floor/unit and/or counseling patient:
[2019-07-31] MEDS: HYDROmorphone HCL 2 MG TAB PO PRN (13:16)
--- NOTE | 2019-07-31 14:41 | Palliative Care Progress Note ---
Date of Service July 31, 2019 Assessment & Plan (1) Cancer related pain: Pain with improved control-no further myoclonic jerks with decrease in methadone to 10 mg twice daily. Continue Dilaudid as needed. Patient required only 1 PRN Dilaudid yesterday as well as 1 PRN Dilaudid since midnight today. (2) Constipation: Partially due to opioids, may also have a component of obstruction due to carcinomatosis-encourage patient to ambulate more, continue PRN Relistor every 48 hours. Last bowel movement recorded on 07/28. Patient's fianc requesting transfer to tertiary [facility] for further evaluation and possible treatment. Patient is agreeable (3) Metastatic renal cell carcinoma: -Patient planned for second dose of Keytruda on 08/01= Continue-Decadron 4 mg daily (4) Anemia: Hemoglobin stable at 7.6-last checked on 07/29 Subjective Patient seen and examined, visited patient's room with fierendira at bedside x2. Collaborated with OLGA Burt regarding plan of care. Patient's fianc strongly requesting that patient be transferred to a tertiary care center-requesting either [facility] or [facility] for further aggressive care regarding his extensive abdominal masses. Patient required 1 PRN IV Dilaudid yesterday for pain, has received 1 dose so far today since midnight. Patient did require PRN Zofran this a.m. for nausea, did not require any PRN Zofran yesterday. Patient continues to have poor p.o. intake despite Decadron and Marinol -Patient continues to have severe constipation despite Relistor every 48 hours. Patient's last documented bowel movement was a small amount of stool on 07/28- patient received Relistor on 07/29 as well as this a.m. Patient states he felt like he needed to have a bowel movement earlier today but has not been able to move his bowels as of early this afternoon. -Patient is agreeable to transfer to tertiary care center as per his fiance's wishes. Attending medical team currently attempting to arrange transfer. Review of Systems Review of Systems: Patient denies fever, chills, chest pain, shortness of breath Positive for fatigue, generalized weakness, lower extremity edema and increased abdominal pain Physical Exam Physical Exam: PE: Patient appears comfortable at rest HEENT: EOMI, hearing within normal limits Respiratory: Unlabored CV: Regular weight, lower extremity edema stable Abdomen: Firm, distended, no discomfort with light palpation Neuro: Alert and oriented x4 Results & Data Vital Signs (Past 12 Hours) Vital Signs Temp Pulse Pulse Resp BP Pulse Ox 07/31/19 12:00 97.9 F 74 18 104/62 93 07/31/19 07:30 97.9 F 84 18 110/68 94 07/31/19 04:25 98.2 F 82 17 121/67 97 PG Care Time/CCT Total # of Minutes Spent Total Time Spent with Patient: Total time spent is greater than 50% in coordination of care (as documented) at patient's floor/unit and/or counseling patient: Time Spent Attending Total time spent 35 minutes with greater than 50% of the time spent at bedside discussing treatment options and supporting patient and fianc's decision for transfer to tertiary care. (1) Metastatic renal cell carcinoma Laterality: unspecified laterality Qualified Code(s): C64.9 - Malignant neoplasm of unspecified kidney, except renal pelvis
--- NOTE | 2019-07-31 16:48 | Hospitalist Progress Note ---
Date of Service July 31, 2019 Assessment & Plan (1) Intractable pain: - Related to progressive metastatic RCC with severe carcinomatosis; tumor burden is significant and likely causing an element of obstruction but still moving bowels a bit but concern would be for future obstruction given the tumor burden - would suspect limited time before this would occur - Continue Methadone 10 mg BID and Dilaudid for breakthrough - methadone dosage reduced due to myoclonic jerking likely caused by Methadone/Dilaudid combination which seems to be improving today - Continue Decadron 4 mg daily - Follows with Dr. Conway - next treatment would be on 08/01 but pending transfer to [facility] - Afebrile, mild leukocytosis which could be from steroid; repeat UA with 2+ bacteria but likely contaminant as cx with minimal growth and no urinary symptoms - Discussed consideration for paracentesis - uncertain if this will help his breathing or pain - but possible depending of extent of ascites - patient/family uncertain given risk of infection and would prefer discussion with specialist chari esparza to consideration - Given mild leukocytosis (which could be steroids/cancer/etc) he would be at risk for SBP and does have a mild elevation of procalcitonin but this was elevated previously too and question accuracy in this situation - did discuss trial of empiric Abx but patient would like to defer at this time (2) Metastatic renal cell carcinoma: - Evidence of diffusely metastatic disease/progressive carcinomatosis - Also likely contributing to lower extremity edema from IVC compression? - Next treatment on 08/01 - pending [facility] transfer (3) Constipation due to opioid therapy: - Last BM 07/29 - Continue Miralax -- Trial off Senna as maybe contributing to taste issues? - Relistor Q48H - Discussed possible KUB on previous assessment but patient would like to hold on this - given carcinomatosis will need to monitor for obstruction - currently is passing small amount of flatus and does have hypoactive BS (4) Anemia: - Chronic - per oncology note review question of possible hemorrhagic component to tumors - average between 7.5-8.5 currently - Continue to monitor - transfuse if < 7 (5) CKD (chronic kidney disease): - Acute kidney injury superimposed on stage III CKD - Cr increased to 2.27 and now trending down and currently at 1.84 - Did consult nephrology given patient only has one kidney - possibly interstitial nephritis with CPI, RYLEE, or hemodynamically mediated KIRILL (6) Hypertension: - Amlodipine 5 mg daily and Metoprolol 50 mg BID - BP has been well controlled and patient would like to reduce pill burden - could consider removal of these medications but would have to monitor for any rebound issues (7) Benign prostatic hyperplasia: - Continue Flomax 0.4 mg daily - states he was prescribe Avodart but it was too expensive and never started this medication (8) ANN (dyspnea on exertion): - CTA with extensive pulmonary mets - likely the biggest factor contributing to ANN but possibly also related to carcinomatosis/distension impacting diaphragmatic expansion as above did discuss possible paracentesis to see if this could help - Performed two step and no desaturations noted (9) DVT prophylaxis: - Lovenox Disposition: Pending transfer to [facility]. Accepted by Medicine Dr. Caraballo. Discussed case with him as well as [facility]. Awaiting bed availability Supervising Physician Co-Signing Physician Notes Pt seen and examined by me. Denies chest pain or SOB. Tolerating PO without issue. Significant other was not present during my discussion with pt. He is hopeful regarding transfer to [facility]. Agree with HPI/ROS as noted by PA See above for my exam in PE section Agree with plan as outlined above Pt with carcinomatosis and metastatic renal cell cancer Currently undergoing tx Requesting second opinion and has been accepted to [facility] in transfer, awaiting transfer Subjective Reports feeling about the same. Spirits seem slightly brighter today. Still continues to have feelings of SOB due to not being able to take deep breaths. Reports pain is pretty good as long as he isn't moving. His Cr is trending down at 1.84. No bowel movement today but reports passing a small amount of gas. Discussed with fileathae and patient. Requesting transfer to another facility to get another opinion and see what type of treatment can be completed given the ag gressive and rapid decline this cancer has created. Patient was accepted in transfer to [facility] pending bed availability. Review of Systems Constitutional: + fatigue and + anorexia; no fever and no chills Ear, Nose, Mouth, Throat: poor taste with foods/drinks - metallic in nature Respiratory: + dyspnea on exertion; no cough and no pain on inspiration difficulty taking in deep breaths Cardiovascular: + edema (b/l lower extremities); no chest pain Gastrointestinal: + abdominal pain, + bloating, + early satiety, + nausea and + constipation; no vomiting Genitourinary: no dysuria Physical Exam Physical Exam: Exam as done by Tri Lynn DO: Constitutional: + thin, + frail appearing and well groomed; no acute distress Eyes: + anicteric sclerae ENMT: Ears: no hearing impairment Neck: trachea midline Respiratory: normal respiratory effort, lungs clear to auscultation does have limitations to taking deep breaths Cardiovascular: Rate/Rhythm: regular rate and regular rhythm Heart Sounds: no murmur Extremities: + edema (b/l lower extremities ) Gastrointestinal (Abdomen): Inspection/Auscultation: + abdomen distended; + abnormal bowel sounds (hypoactive) Percussion/Palpation: abdomen nontender very taunt abdomen with ability to palpate tumor in upper abdominal region Musculoskeletal: Head/Neck/Chest: normocephalic and head atraumatic Neg for peripheral LE edema, + pedal pulses Skin: no rashes, warm and dry Neurologic: moves all extremities Speech / Cognition: normal speech Psychiatric: A+Ox3, euthymic affect Orientation: alert and oriented x 3 Lymphatic: Exam as done by Tri Lynn DO Results & Data Vital Signs (Past 12 Hours) Vital Signs Temp Pulse Resp BP Pulse Ox 07/31/19 15:45 36.7 C 84 20 116/66 90 07/31/19 12:00 36.6 C 74 18 104/62 93 07/31/19 07:30 36.6 C 84 18 110/68 94 PG Care Time/CCT Total # of Minutes Spent Total Time Spent with Patient: Total time spent is greater than 50% in coordination of care (as documented) at patient's floor/unit and/or counseling patient: (1) Benign prostatic hyperplasia Lower urinary tract symptom presence: symptoms absent Qualified Code(s): N40.0 - Benign prostatic hyperplasia without lower urinary tract symptoms (2) Anemia Anemia type: unspecified type Qualified Code(s): D64.9 - Anemia, unspecified (3) CKD (chronic kidney disease) Chronic kidney disease stage: unspecified stage Qualified Code(s): N18.9 - Chronic kidney disease, unspecified (4) Metastatic renal cell carcinoma Laterality: unspecified laterality Qualified Code(s): C64.9 - Malignant neoplasm of unspecified kidney, except renal pelvis (5) Hypertension Hypertension type: essential hypertension Qualified Code(s): I10 - Essential (primary) hypertension
[2019-07-31] MEDS: ENOXAPARIN INJ 40 MG/0.4 ML SYR SQ SCH (20:16)
[2019-07-31] MEDS: TAMSULOSIN HCL 0.4 MG CAP PO SCH (20:17)
--- NOTE | 2019-08-01 02:10 | Consultation Report ---
DATE OF CONSULTATION: 07/31/2019 MEDICAL ONCOLOGY CONSULTATION REASON FOR CONSULTATION: Metastatic renal cell carcinoma in a 64-year-old gentleman currently under Dr. Burak Conway's care. HISTORY OF PRESENT ILLNESS: Mr. Sterling is a very pleasant but unfortunate 64-year-old gentleman currently under Dr. Conway's care with recent diagnosis of metastatic renal cell carcinoma. He originally presented to [facility] with a complaint of diffuse abdominal pain mainly in the lower back and left upper quadrant under his ribs with an 8/10 severity. The patient has also been struggling with intermittent nausea and constipation. The patient was recently diagnosed with metastatic renal cell carcinoma manifested by worsening carcinomatosis within the abdomen and lungs bilaterally. The patient has received his initial course of nivolumab in combination with ipilimumab on 07/11/2019. Had no difficulties per se with the regimen. He is due for dose #2 on 08/01/2019. According to Dr. Conway's clinical note, the patient has had a nonproductive cough at the beginning of April 2019. CT of the chest revealed a large heterogeneous mass which was partially visualized in the left upper quadrant measuring at least 18 cm. 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 The mass measured 27 x 17 x 12.5 cm, thought to be limited to the kidney and did not extend through the renal capsule or Gerota's fascia. Mr. Sterling was also seen by the Palliative Service for pain control. Unfortunately, despite receiving his initial course of salvage chemotherapy, radiographs done on admission confirmed disease progression. Mr. Sterling is currently being managed by the hospitalist service and seen by Palliative Care and Nephrology. Because of his upcoming schedule dose was consulted on Dr. Conway's behalf to discuss therapy moving forward. Mr. Sterling unfortunately is clearly in decline, minimally able to maintain himself nutritionally and battling with chronic pain issues. PAST MEDICAL HISTORY: Status post nephrectomy, hypertension, intractable chronic pain and BPH, status post right inguinal hernia repair. MEDICATIONS: Prior to admission include amlodipine 5 mg p.o. daily, metoprolol tartrate 50 mg p.o. b.i.d., tamsulosin 0.4 mg p.o. daily, ferrous sulfate 325 mg p.o. b.i.d., morphine 15 mg p.o. q. 8 hours, MiraLax 17 grams p.o. daily, Avodart 0.5 mg p.o. daily and oxycodone 5 mg p.o. q. 2 hours p.r.n. for breakthrough. ALLERGIES: No known drug allergies. SOCIAL HISTORY: The patient is self-employed. He is a nonsmoker, nondrinker, nonsubstance abuser. FAMILY HISTORY: Noncontributory. REVIEW OF SYSTEMS: GENERAL: Positive for general clinical decline, ongoing anorexia and weight loss. Negative for fevers, chills or sweats. SKIN: No history of dermatoses. No current rashes or lesions. HEENT: Denies headaches, lightheadedness or dizziness. No dysphagia or sore throat. LYMPH: No history of lymphoproliferative disease. CARDIAC: No history of coronary artery disease, no angina or palpitations. PULMONARY: Positive for lung metastatic disease. He is not acutely short of breath, dyspneic or orthopneic. No cough or hemoptysis. GASTROINTESTINAL: Positive for diffuse abdominal pain attributable to peritoneal carcinomatosis. No hematochezia, melena or nidhi rectal bleeding. GENITOURINARY: Positive history of BPH. No current hematuria, dysuria, urinary incontinence. PSYCHIATRIC: Negative for anxiety, depression or psychoses. ENDOCRINE: Negative for diabetes or thyroid disease. NEUROLOGIC: Negative for seizure, stroke, or migraine headache. HEMATOLOGIC: Positive for leukocytosis and normocytic normochromic anemia. PHYSICAL EXAMINATION: GENERAL: A depressed, cachectic appearing 64-year-old gentleman sitting at bedside, awake, alert and appropriate, in no acute distress. VITAL SIGNS: Temperature 36.7, pulse 76, respiratory rate 19, blood pressure 113/70. SKIN: Warm, dry, noncyanotic without petechiae, rash or ecchymosis. HEENT: Head is atraumatic, normocephalic. Eyes: PERRLA, EOMI. Sclerae nonicteric. No conjunctival injection. Nares are patent without rhinorrhea or discharge. Throat is clear. Tongue is midline. Mucous membranes are moist. NECK: Supple without JVD or thyromegaly. LYMPHATICS: No cervical or supraclavicular palpable nodes. HEART: Regular rate and rhythm. No clicks, rubs, murmurs or gallops. LUNGS: Clear to auscultation bilaterally. ABDOMEN: Diffusely tender. Bowel sounds hypoactive. No rigidity or guarding appreciated. EXTREMITIES: Lower extremity and pedal edema seen bilaterally. MUSCULOSKELETAL: Strength and pulses are equal in all 4 quadrants, otherwise. NEUROLOGICALLY: He is awake, alert and oriented x3. Cranial nerves are grossly intact. LABORATORY DATA: WBC count 14,220. The above laboratories were drawn on 07/29/2019, hemoglobin 7.6, platelet count 195,000. Chemistries done on 07/31/2019, sodium 140, potassium 4.2, chloride 107, creatinine 1.84, BUN 48, albumin 2.1. RADIOGRAPHIC DATA: CT scan of the abdomen and pelvis reveals 1. Dramatic interval worsening of metastatic disease primarily in the peritoneal cavity with significant interval increase in peritoneal carcinomatosis as well as increased pulmonary metastatic disease. 2. Status post left nephrectomy. IMPRESSION: 1. Intractable abdominal pain. 2. Hypoalbuminemia. 3. Progressing metastatic renal cell carcinoma status post initial course of nivolumab ipilimumab administered on 07/11/2019. PLAN: Mr. Sterling is a pleasant but unfortunate 64-year-old gentleman currently under Dr. Conway's care for metastatic renal cell carcinoma. Based on his current performance status and rapid decline in my opinion in no shape to continue salvage therapy. Mr. Sterling asked me frankly if continuing chemotherapy was worthwhile moving forward. Unfortunately, he has only received 1 dose thus much too early to determine potential response, however, troubling disease progression as seen radiographically. Ultimately, I would like Dr. Conway to further discuss salvage therapy moving forward. Agree with current medical management including palliative care consult. Ultimately, I suspect Mr. Sterling may opt to proceed with outpatient hospice. Based on his obvious rapid decline and progression, I would not disagree with this approach. His prognosis is exceedingly poor. At this rate, I suspect his survival is measured in weeks to maybe a month or two. Dr. Conway will return early next week and will have him address Mr. Sterling's therapeutic plan. Thank you very much for allowing me to participate in his care. [facility]
[2019-08-01 08:05] LABS: Albumin Level 2.2 gm/dl (3.4-5.0); BUN Creatinine Ratio 23.6 (10-20); Calcium 8.9 mg/dl (8.5-10.1); Creatinine Clr Calc Pharmacy 43.2 ml/min; Est GFR (African American) 44.8; Est GFR (Non-African American) 38.7
[2019-08-01 08:06] LABS: Phosphorus 3.4 mg/dl (2.5-4.9)
[2019-08-01] MEDS: METOPROLOL TARTRATE 50 MG TAB PO SCH ×2 (08:35→20:28)
[2019-08-01] MEDS: DRONABINOL 2.5 MG CAP PO SCH ×2 (08:35→16:27)
[2019-08-01] MEDS: dexAMETHasone 4 MG TAB PO SCH (08:35)
[2019-08-01] MEDS: METHADONE HCL 5 MG TAB PO SCH ×2 (08:35→20:27)
[2019-08-01] MEDS: AMLODIPINE BESYLATE 5 MG TAB PO SCH (08:35)
[2019-08-01] MEDS: POLYETHYLENE (MIRALAX) 17 GM PACK PO SCH (08:42)
[2019-08-01] MEDS: ONDANSETRON 4 MG OD TAB PO PRN ×2 (08:42→23:41)
[2019-08-01] MEDS ORDERED: bisacodyL 10 MG SUPP PR PRN (16:53)
--- NOTE | 2019-08-01 16:53 | Palliative Care Progress Note ---
Date of Service August 01, 2019 Assessment & Plan (1) Cancer related pain: Pain with improved control-no further myoclonic jerks with decrease in methadone to 10 mg twice daily. Continue Dilaudid as needed. Patient required only 1 PRN Dilaudid in the past 24 hours. (2) Constipation: Partially due to opioids, may also have a component of obstruction due to carcinomatosis-encourage patient to ambulate more, continue PRN Relistor every 48 hours. Last bowel movement recorded on 07/28. Patient agreeable to suppository now. (3) Metastatic renal cell carcinoma: -Patient is agreeable to transfer to tertiary [facility]-patient has been accepted at [facility]-transport being coordinated (4) Anemia: Hemoglobin stable at 7.6-last checked on 07/29 Subjective Patient awake and alert, sitting on the side of the bed eating Sami fries and drinking a milkshake along with his fiance. Madeline Brenner PA-C present during visit Patient reports that his pain is well controlled-he is on methadone 10 mg twice daily, only required 1 PRN Dilaudid in the past 24 hours. Patient has been accepted in transfer by [facility]-transportation is being coordinated. Patient reports no bowel movement since 07/28-is agreeable to a suppository. Patient has been receiving Relistor every 48 hours, last dose was on 07/31. Review of Systems Review of Systems: Patient denies fever, chills, chest pain, increased shortness of breath Positive for abdominal distention Pain and nausea controlled Physical Exam Physical Exam: PE: Patient awake and alert, no acute distress HEENT: EOMI, hearing within normal limits Respirations: Clear breath sounds bilaterally CV: Regular rate, positive lower extremity edema Abdomen: Distended, firm, no discomfort with light palpation. Minimal gas sounds left lower quadrant Neuro: Alert and oriented x4 Results & Data Vital Signs (Past 12 Hours) Vital Signs Temp Pulse Resp BP Pulse Ox 08/01/19 16:14 97.9 F 78 18 112/67 93 08/01/19 11:31 97.9 F 59 L 16 102/65 96 08/01/19 07:15 97.9 F 89 16 119/67 93 PG Care Time/CCT Total # of Minutes Spent Total Time Spent with Patient: Total time spent 35 minutes with greater than 50% of the time spent at bedside discussing current plan and goals of care with patient and fianc. (1) Metastatic renal cell carcinoma Laterality: unspecified laterality Qualified Code(s): C64.9 - Malignant neoplasm of unspecified kidney, except renal pelvis
--- NOTE | 2019-08-01 19:39 | Hospitalist Progress Note ---
Date of Service August 01, 2019 Assessment & Plan (1) Intractable pain: - Related to progressive metastatic RCC with severe carcinomatosis; tumor burden is significant and likely causing an element of obstruction concern would be for future obstruction given the tumor burden - would suspect limited time before this would occur - Continue Methadone 10 mg BID and Dilaudid for breakthrough - methadone dosage reduced due to myoclonic jerking likely caused by Methadone/Dilaudid combination which seems to be largely resolved - Continue Decadron 4 mg daily - Follows with Dr. Conway - pending transfer to [facility] - Afebrile, mild leukocytosis which could be from steroid; repeat UA with 2+ bacteria but likely contaminant as cx with minimal growth and no urinary symptoms - Discussed consideration for paracentesis - uncertain if this will help his breathing or pain - but possible depending on extent of ascites - patient/family uncertain given risk of infection and would prefer discussion with specialist prior to consideration - Given mild leukocytosis (which could be steroids/cancer/etc) he would be at risk for SBP and does have a mild elevation of procalcitonin but this was elevated previously too and question accuracy in this situation - did discuss trial of empiric Abx but patient would like to defer at this time (2) Metastatic renal cell carcinoma: - Evidence of diffusely metastatic disease/progressive carcinomatosis - Also likely contributing to lower extremity edema from IVC compression? - Next treatment was to be 08/01 - pending [facility] transfer - Palliative Care Following - discussed with Dr. Faye and Estefanía - appreciate assistance (3) Constipation due to opioid therapy: - Last BM 07/29 - Continue Miralax -- Trial off Senna as maybe contributing to taste issues? - Relistor Q48H - Discussed possible KUB on previous assessment but patient would like to hold on this - given carcinomatosis will need to monitor for obstruction - currently is passing small amount of flatus and does have hypoactive BS (4) Anemia: - Chronic - per oncology note review question of possible hemorrhagic component to tumors - average between 7.5-8.5 currently - Continue to monitor - transfuse if < 7 (5) CKD (chronic kidney disease): - Acute kidney injury superimposed on stage III CKD - Cr increased to 2.27 and now trending down and currently at 1.83 - Did consult nephrology given patient only has one kidney - discussed with Dr. Yumi - possibly interstitial nephritis with CPI, RYLEE, or hemodynamically mediated KIRILL (6) Hypertension: - Amlodipine 5 mg daily and Metoprolol 50 mg BID - BP has been well controlled and patient would like to reduce pill burden - could consider removal of these medications but would have to monitor for any rebound issues (7) Benign prostatic hyperplasia: - Continue Flomax 0.4 mg daily - states he was prescribe Avodart but it was too expensive and never started this medication (8) ANN (dyspnea on exertion): - CTA with extensive pulmonary mets - likely the biggest factor contributing to ANN but possibly also related to carcinomatosis/distension impacting diaphragmatic expansion as above did discuss possible paracentesis to see if this could help - Performed two step and no desaturations noted (9) DVT prophylaxis: - Lovenox Disposition: Pending transfer to [facility] - Bed confirmed but awaiting transport. Accepted by Medicine Dr. Caraballo. Discussed case with him as well as [facility] on 07/31. Updated patient/family Supervising Physician Co-Signing Physician Notes Pt chart reviewed and discussed with PA. Agree with plan as outlined above Pt with carcinomatosis and metastatic renal cell cancer Currently undergoing tx Requesting second opinion and has been accepted to [facility] in transfer, awaiting transfer Fiancee is very frustrated regarding lack of transportation options for today. Subjective Reports feeling about the same today. Pain is stable and breathing stable. Reports feeling is abdomen rumbling today and fiancee confirms actually hearing the bowel sounds. However no bowel movement and will trial suppository and ambulating halls. Appetite appears a little better today and was eating some fries and a milkshake during my one visit. Awaiting transport to [facility] Review of Systems Constitutional: + fatigue and + anorexia (slightly improved today); no fever and no chills Ear, Nose, Mouth, Throat: poor taste with foods/drinks - metallic in nature Respiratory: + dyspnea on exertion; no cough and no pain on inspiration difficulty taking in deep breaths due to restrictive feelings but no pain Cardiovascular: + edema (b/l lower extremities); no chest pain Gastrointestinal: + abdominal pain, + bloating, + early satiety and + constipation; no nausea and no vomiting Physical Exam Constitutional: WD/WN, vitals as above + frail appearing; no acute distress Eyes: + anicteric sclerae ENMT: Ears: no hearing impairment Neck: trachea midline Respiratory: normal respiratory effort, lungs clear to auscultation normal respiratory effort Cardiovascular: Rate/Rhythm: regular rate and regular rhythm Heart Sounds: no murmur Extremities: + edema (b/l lower extremities ) Gastrointestinal (Abdomen): Inspection/Auscultation: + abdomen distended; + abnormal bowel sounds (hypoactive) Percussion/Palpation: abdomen nontender Musculoskeletal: Head/Neck/Chest: normocephalic and head atraumatic Skin: no rashes, warm and dry Neurologic: moves all extremities Psychiatric: Orientation: alert and oriented x 3 Results & Data Vital Signs (Past 12 Hours) Vital Signs Temp Pulse Resp BP Pulse Ox 08/01/19 16:14 36.6 C 78 18 112/67 93 08/01/19 11:31 36.6 C 59 L 16 102/65 96 PG Care Time/CCT Total # of Minutes Spent Total Time Spent with Patient: Total time spent is greater than 50% in coordination of care (as documented) at patient's floor/unit and/or counseling patient: (1) Benign prostatic hyperplasia Lower urinary tract symptom presence: symptoms absent Qualified Code(s): N40.0 - Benign prostatic hyperplasia without lower urinary tract symptoms (2) Anemia Anemia type: unspecified type Qualified Code(s): D64.9 - Anemia, unspecified (3) CKD (chronic kidney disease) Chronic kidney disease stage: unspecified stage Qualified Code(s): N18.9 - Chronic kidney disease, unspecified (4) Metastatic renal cell carcinoma Laterality: unspecified laterality Qualified Code(s): C64.9 - Malignant neoplasm of unspecified kidney, except renal pelvis (5) Hypertension Hypertension type: essential hypertension Qualified Code(s): I10 - Essential (primary) hypertension
[2019-08-01] MEDS: ENOXAPARIN INJ 40 MG/0.4 ML SYR SQ SCH (20:27)
[2019-08-01] MEDS: TAMSULOSIN HCL 0.4 MG CAP PO SCH (20:27)
[2019-08-01] MEDS: bisacodyL 10 MG SUPP PR PRN (20:27)
[2019-08-01] MEDS: HYDROmorphone HCL 2 MG TAB PO PRN (23:41)
[2019-08-02] MEDS: METHADONE HCL 5 MG TAB PO SCH (08:04)
[2019-08-02] MEDS: DRONABINOL 2.5 MG CAP PO SCH (08:04)
[2019-08-02] MEDS: ONDANSETRON 4 MG OD TAB PO PRN (08:04)
[2019-08-02] MEDS: dexAMETHasone 4 MG TAB PO SCH (08:05)
[2019-08-02] MEDS: METOPROLOL TARTRATE 50 MG TAB PO SCH ×2 (08:05→10:37)
[2019-08-02] MEDS: AMLODIPINE BESYLATE 5 MG TAB PO SCH (08:05)
[2019-08-02] MEDS: POLYETHYLENE (MIRALAX) 17 GM PACK PO SCH (08:06)
[2019-08-02] MEDS: METHYLNALTREXONE BROMIDE 12 MG/0.6 ML VIAL SQ SCH (08:07)
[2019-08-02 09:35] LABS: Albumin Level 2.1 gm/dl (3.4-5.0); BUN Creatinine Ratio 24.1 (10-20); Calcium 8.7 mg/dl (8.5-10.1); Creatinine Clr Calc Pharmacy 43.5 ml/min; Est GFR (African American) 45.1; Est GFR (Non-African American) 38.9; Potassium 4.3 mmol/L (3.5-5.1)
[2019-08-02 09:36] LABS: Phosphorus 3.1 mg/dl (2.5-4.9)
[2019-08-02] MEDS ORDERED: OXYCODONE/ACETAMINOPHEN 5mg/325mg TAB PO STA (10:47)
[2019-08-02] MEDS ORDERED: ONDANSETRON 4 MG OD TAB PO STA (10:47)
[2019-08-02] MEDS ORDERED: OXYCODONE/ACETAMINOPHEN 5mg/325mg TAB ONE (10:49)
--- NOTE | 2019-08-02 14:19 | Discharge Summary ---
Date of Service August 02, 2019 Admission HPI Per Admitting Provider Mr. Sterling is a pleasant 64yo C male with history of metastatic renal cell carcinoma, worsening carcinomatosis presenting with intractable abdominal pain. Pain is located in the lower back and LUQ under his ribs, constant, 8/10 in severity. Also with nausea and constipation. Patient was previously on Morphine 15mg po TID and Oxycodone q 2 hours as needed for breakthrough pain. He has been following with Palliative Care. He recently stopped taking the Morphine because it was making him feel sick. He has been taking Oxycodone 10mg po q 2 hours as needed with minimal relief. Last BM 2-3 days ago. No additional complaints at this time. Recently started on chemotherapy with Nivolumab and Ipilimumab on 07/15. Next treatment is scheduled for 08/01. Possible use of methadone for pain control per last Palliative note 07/10/19. ER Course: Fetanyl, Dilaudid, Zofran, NSS Principal Diagnosis Metastatic RCC Discharge Exam Constitutional + frail appearing; no acute distress Eyes + anicteric sclerae ENMT Ears: no hearing impairment Neck trachea midline Respiratory normal respiratory effort, lungs clear to auscultation normal respiratory effort Cardiovascular Rate/Rhythm: regular rate and regular rhythm Heart Sounds: no murmur Extremities: + edema (b/l lower extremities ) Gastrointestinal (Abdomen) Inspection/Auscultation: + abdomen distended; + abnormal bowel sounds (hypoactive) Percussion/Palpation: abdomen nontender upper abdomen with palpable tumor Musculoskeletal Head/Neck/Chest: normocephalic and head atraumatic Skin no rashes, warm and dry Neurologic moves all extremities Psychiatric Orientation: alert and oriented x 3 Affect: + flat affect Discharge Data Allergies Allergy/AdvReac Type Severity Reaction Status Date / Time No Known Allergies Allergy Verified 07/21/19 16:05 Consultations 07/21/19 17:25 ED Decision to Admit Stat 07/21/19 20:35 Consult Palliative Care Routine 07/29/19 09:33 Consult Nephrology Routine 07/30/19 17:30 Consult Oncology Routine Ordered Studies 07/21/19 15:39 CT abd pelvis wo con Stat CT head/brain wo con Stat 07/22/19 11:59 US venous doppler LE BI Routine 07/26/19 14:13 CT angio chest PE protocol Routine Hospital Course (1) Intractable pain: - Related to progressive metastatic RCC with severe carcinomatosis; tumor burden is significant and likely causing an element of obstruction, concern would be for future obstruction given the tumor burden - would suspect limited time before this would occur - Continue Methadone 10 mg BID and Dilaudid for breakthrough - methadone dosage reduced due to myoclonic jerking likely caused by Methadone/Dilaudid combination which seems to be largely resolved - Continue Decadron 4 mg daily - Follows with Dr. Conway - pending transfer to [facility] - Afebrile, mild leukocytosis which could be from steroid; repeat UA with 2+ bacteria but likely contaminant as cx with minimal growth and no urinary symptoms - Discussed consideration for paracentesis - uncertain if this will help his breathing or pain - but possible depending on extent of ascites - patient/family uncertain given risk of infection and would prefer discussion with specialist prior to consideration - Given mild leukocytosis (which could be steroids/cancer/etc) he would be at risk for SBP and does have a mild elevation of procalcitonin but this was elevated previously too and question accuracy in this situation - did discuss trial of empiric Abx but patient would like to defer at this time (2) Metastatic renal cell carcinoma: - Evidence of diffusely metastatic disease/progressive carcinomatosis - Also likely contributing to lower extremity edema from IVC compression? - Next treatment was to be 08/01 - but now transferred to [facility] - Palliative Care Following - discussed with Dr. Faye and Estefanía - appreciated assistance (3) Constipation due to opioid therapy: - Last BM on day of DC - small but responded to Dulcolax supp - Continue Miralax/Senna - Relistor Q48H utilized - Discussed possible KUB on previous assessment but patient would like to hold on this - given carcinomatosis will need to monitor for obstruction - currently is passing small amount of flatus and does have hypoactive BS (4) Anemia: - Chronic - per oncology note review question of possible hemorrhagic component to tumors - average between 7.5-8.5 currently - Continue to monitor - transfuse if < 7 (5) CKD (chronic kidney disease): - Acute kidney injury superimposed on stage III CKD - Cr increased to 2.27 and now trending down and currently at 1.83 - Did consult nephrology given patient only has one kidney - discussed with Dr. Eason - possibly interstitial nephritis with CPI, RYLEE, or hemodynamically mediated KIRILL (6) Hypertension: - Amlodipine 5 mg daily and Metoprolol 50 mg BID - BP has been well controlled and patient would like to reduce pill burden - could consider removal of these medications but would have to monitor for any rebound issues (7) Benign prostatic hyperplasia: - Continue Flomax 0.4 mg daily - states he was prescribe Avodart but it was too expensive and never started this medication (8) ANN (dyspnea on exertion): - CTA with extensive pulmonary mets - likely the biggest factor contributing to ANN but possibly also related to carcinomatosis/distension impacting diaphragmatic expansion as above did discuss possible paracentesis to see if this could help - Performed two step and no desaturations noted (9) DVT prophylaxis: - Lovenox Disposition: Transferred to [facility]. Accepted by Medicine Dr. Caraballo. Discussed case with him as well as [facility] on 07/31. Updated patient/family. Total Time Total Time Spent Total Time Spent (In Minutes): Greater than 30 minutes Discharge Plan Discharge Items Patient Disposition: [facility] Reason For Visit: ABDOMINAL PAIN Discharge Diagnosis: Metastatic Renal Cell Carcinoma Activity: Resume your previous activity Non-emergency contact: Primary Care Provider Call non-emergency contact if: you have any medication questions, your symptoms worsen and you have a fever Follow-up/Referrals: Ney Hand CRNP [Primary Care Provider] - Diet: Regular Addtl Attending Provider Instructions: Intractable pain: - Related to progressive metastatic RCC with severe carcinomatosis; tumor burden is significant and likely causing an element of obstruction but still moving bowels a bit but concern would be for future obstruction given the tumor burden - hypoactive bowel sounds and currently still passing flatus - Continue Methadone 10 mg BID and Dilaudid 4 mg Q2H for breakthrough - methadone dosage reduced due to myoclonic jerking likely caused by Methadone/Dilaudid combination which seems to have nearly resolved -- Only requiring a couple doses of Dilaudid for pain through day - Continue Decadron 4 mg daily - was initiated for pain control and some appetite improvement - pending ultimate plan could look at taper and D/C - Follows with Dr. Conway - next treatment of Keytruda/Ipilimumab 08/01 however plan for transfer to [facility] - Afebrile, mild leukocytosis which could be from steroid; repeat UA with 2+ bacteria but likely contaminant as cx with minimal growth and no urinary symptoms - Discussed consideration for paracentesis - uncertain if this will help his breathing or pain but can also be used for determination of SBP - patient/family concerned given risk for infection introduction and would like to talk with a specialist before considering this procedure Metastatic renal cell carcinoma: - Evidence of diffusely metastatic disease/progressive carcinomatosis - chromophobe carcinoma and sarcomatoid features - Also likely contributing to lower extremity edema from IVC compression? - Next treatment on 08/01 - but wanting a second opinion/consideration for more aggressive approach - CT - Dramatic interval worsening of metastatic disease primarily in the peritoneal cavity with significant interval increase in peritoneal carcinomatosis. Additionally, increased pulmonary metastatic disease is evident. - Left nephrectomy - Chronic bladder outlet obstruction in the setting of prostatomegaly - Continue Marinol 5 mg BID as hunter reports this helps his appetite; currently appetite is overall poor but experiencing a metallic taste limited desire to eat plus likely early satiety given abdomen - Palliative Care has been involved - current plan is to seek treatment. Methadone will be prescribed by Dr. Faye with palliative care for outpatient use Constipation due to opioid therapy: - Likely a mix of opiates and tumor burden causing a level of obstruction - Last BM 07/29 - Continue Miralax/Senna - Relistor Q48H utilized in house - only small bowel movements produced but passing some flatus and hypoactive BS - Discussed possible KUB but patient would like to hold on this - given carcinomatosis will need to monitor for obstruction Anemia: - Chronic - - average between 7.5-8.5 currently - Per oncology - question possibly hemorrhagic component to some tumors as possi ble cause of anemia CKD (chronic kidney disease): - Acute kidney injury superimposed on stage III CKD; S/P L Nephrectomy due to tumor but no mention of mass in remaining kidney per CT - Cr increased to 2.27 and now trending down and at 1.8 and making urine adequately - Question of possible interstitial nephritis with CPI, YRLEE, or hemodynamically mediated KIRILL -- Did have IV contrast for CTA a few days prior/also immunotherapy as outpatient Hypertension: - Amlodipine 5 mg daily and Metoprolol 50 mg BID - BP has been well controlled and patient would like to reduce pill burden - could consider removal of these medications but would have to monitor for any rebound issues Benign prostatic hyperplasia: - Continue Flomax 0.4 mg daily - states he was prescribe Avodart but it was too expensive and never started this medication ANN (dyspnea on exertion): - CTA with extensive pulmonary mets - likely the biggest factor contributing to ANN but possibly also related to carcinomatosis/distension impacting diaphragmatic expansion as above did discuss possible paracentesis to see if this could help but this was deferred - Performed two step and no desaturations noted DVT prophylaxis: - Lovenox Disposition: Given aggressive nature of cancer and rapid decline, a more aggressive approach and opinion for this cancer is requested. Per patient and family request was accepted in transfer to [facility] Pending Studies at Discharge: No Stand-Alone Forms: My [facility] Skilled Items Patient informed of condition?: Yes DNR: Yes Discharge Level of Care: Other Communicable Disease: No Discharge Prognosis: Stable Lines: Peripheral IV Urinary Catheter: No Medications and DC Order Prescriptions: New dronabinol 5 mg capsule 5 mg PO BID Qty: 60 RF: 0 hydromorphone 2 mg Tablet 4 mg PO Q2H PRN (Reason: pain) Qty: 0 RF: 0 methadone 5 mg Tablet 10 mg PO BID Qty: 0 RF: 0 dexamethasone 4 mg Tablet 4 mg PO DAILY Qty: 0 RF: 0 ondansetron 4 mg Tablet,Disintegrating 4 mg PO Q6H PRN (Reason: nausea and vomiting) Qty: 0 RF: 0 Continued amlodipine 5 mg tablet 5 mg PO QAM Qty: 30 RF: 5 metoprolol tartrate 50 mg tablet 50 mg PO BID Qty: 60 RF: 5 tamsulosin 0.4 mg capsule 0.4 mg PO QPM Qty: 30 RF: 5 sennosides-docusate sodium [Senokot-S] 8.6-50 mg Tablet 1 tab PO BID Qty: 30 RF: 0 polyethylene glycol 3350 [Miralax] 17 gram Powder In Packet 17 g PO DAILY Qty: 30 RF: 0 Discontinued ferrous sulfate 325 mg (65 mg iron) Tablet,Delayed Release (Dr/Ec) 325 mg PO Q2D@0700 Qty: 30 RF: 0 morphine 15 mg tablet extended release 15 mg PO Q8H Qty: 120 RF: 0 oxycodone 5 mg tablet 5 mg PO Q2H PRN (Reason: pain) RF: 0 dutasteride [Avodart] 0.5 mg capsule 0.5 mg PO DAILY RF: 0 Discharge Orders: Discharge Order (Routine); Ordered 08/02/19 Ordered By: Madeline Brenner Admission Data Admit Date/Time: 07/21/19 19:34 Attending Provider: Fabio Juarez Admit Provider: Deidre Turner Primary Care Provider: Ney Hand Other Providers: Samson Hernandes ; Angelina Espitia ; Burak Conway ; Michell Eason Other Interventions: Discharge Summary Assessment (RN) Last Done: 08/02/19 09:30 DC Date/Time DO NOT enter until pt leaves facility: 08/02/19 10:50 Supervising Physician Co-Signing Physician Notes Attending note: patient seen and examined with Madeline Brenner PA-C. I agree with her discharge summary. I personally reviewed the labs and imaging findings. patient seen prior to his transfer pain was controlled with Percocet, received Zofran for nausea anxious to go to [facility] for second opinion he and family understand poor prognosis - Abdominal pain due to carcinomatosis, metastatic renal cell cancer transfer to [facility] for second opinion, explore any possible options pain control with Percocet - Constipation: due to mets, always a chance he could obstruct
== END 2019-08-02 10:50 | disposition other institution (70) | DRG 948 ==
LOC: ED 15:06 → SUATTDRO 19:34 → 2W 19:34 → SUPCPDRO 19:34 → 2W 20:13